=== PATIENT | female | born 1995 | race Caucasian/White ===

== ENCOUNTER 2017-08-10 12:09 | Emergency (ER) | payer MEDICAID, SELFPAY ==
[2017-08-10 12:09] VITALS: BP 139/64; PULSE 111; RESP 16; TEMP 36.9; BMI 19.8
--- NOTE | 2017-08-10 12:47 | ED.VISSUMM ---
- ER Visit Summary Date of Service: 08/10/17 Chief Complaint: Left flank pain History of Present Illness: The patient is a 22 F who presents with left flank pain. Patient does not offer up any information on her history without direct closed ended questions. I am not sure why that is. Attempted to ask open-ended questions met with resistance. From what I can elucidate out patient had a sudden onset of left flank pain beginning yesterday evening while she was doing nothing. Described as a throbbing pain. She denies any fevers, arthralgias myalgias, no rash, no urinary symptoms. Patient denies any vomiting or diarrhea or nausea. No cough shortness of breath. No chest pains. No trauma. She denies any medical problems. She denies any surgeries and later states she has had a tonsillectomy. She is a smoker. Physical Examination: Afebrile vital signs are stable Gen: Well-nourished well-developed Head: Normocephalic atraumatic Eyes: Perrl EOMI ENT: TMs clear no rhinorrhea moist mucous membranes Neck: Supple no lymphadenopathy no JVD nontender CVS: Regular rate rhythm no murmurs normal S1-S2 Respiratory: No distress clear to auscultation bilaterally chest nontender Abdomen: Soft nontender nondistended normal bowel sounds no masses Back: CVA tenderness on the left Extremity: Nontender no edema Skin: Normal color no rash Neuro: alert orientated ?3 CN II-XII intact normal strength sensation reflexes gait cerebellar Emergency Department Course and Treatment: Shortly after my H&P and nursing's evaluation I was starting to put orders in when the patient came out of her room and stated that she was leaving. She offered no explanation. Her mother comes out of the room and states well I guess we are leaving. At this point the patient has left. Impression: 1. Left flank pain 2. ED elopement This note was generated with [employer] dictation software. It may contain incorrect words, spelling, and punctuation that were not noted in review of the chart prior to signing ED Disposition - Plan for ED Patient: Chief Complaint: Flank Pain Referrals: Chavez Scott DO [Primary Care Provider] -
--- NOTE | 2017-08-10 12:51 | ED.DCSUM_ITS ---
- ER Visit Summary Date of Service: 08/10/17 Chief Complaint: Left flank pain History of Present Illness: The patient is a 22 F who presents with left flank pain. Patient does not offer up any information on her history without direct closed ended questions. I am not sure why that is. Attempted to ask open- ended questions met with resistance. From what I can elucidate out patient had a sudden onset of left flank pain beginning yesterday evening while she was doing nothing. Described as a throbbing pain. She denies any fevers, arthralgias myalgias, no rash, no urinary symptoms. Patient denies any vomiting or diarrhea or nausea. No cough shortness of breath. No chest pains. No trauma. She denies any medical problems. She denies any surgeries and later states she has had a tonsillectomy. She is a smoker. Physical Examination: Afebrile vital signs are stable Gen: Well-nourished well-developed Head: Normocephalic atraumatic Eyes: Perrl EOMI ENT: TMs clear no rhinorrhea moist mucous membranes Neck: Supple no lymphadenopathy no JVD nontender CVS: Regular rate rhythm no murmurs normal S1-S2 Respiratory: No distress clear to auscultation bilaterally chest nontender Abdomen: Soft nontender nondistended normal bowel sounds no masses Back: CVA tenderness on the left Extremity: Nontender no edema Skin: Normal color no rash Neuro: alert orientated ?3 CN II-XII intact normal strength sensation reflexes gait cerebellar Emergency Department Course and Treatment: Shortly after my H&P and nursing's evaluation I was starting to put orders in when the patient came out of her room and stated that she was leaving. She offered no explanation. Her mother comes out of the room and states well I guess we are leaving. At this point the patient has left. Impression: 1. Left flank pain 2. ED elopement This note was generated with [employer] dictation software. It may contain incorrect words, spelling, and punctuation that were not noted in review of the chart prior to signing ED Disposition - Plan for ED Patient: Chief Complaint: Flank Pain Referrals: Chavez Scott DO [Primary Care Provider] -
--- NOTE | 2017-08-10 13:08 | ED.RN ---
pt left with mother. no explanation from patient.
== END 2017-08-10 13:12 | disposition left against medical advice (07) ==
LOC: ED 12:45
PROVIDERS: Emergency Provider Emergency Medicine; Family Provider Preventive Medicine Occupational Medicine; PCP Preventive Medicine Occupational Medicine
DX: R10.9 Unspecified abdominal pain (principal); M54.9 Dorsalgia, unspecified; Z72.0 Tobacco use
CPT/HCPCS: 99283

== ENCOUNTER 2017-10-18 11:46 | Observation (INO) | payer MEDICAID, SELFPAY ==
[2017-10-18] VITALS (14 sets, daily range): BP systolic 85–131; BP diastolic 56–87; PULSE 106–147; RESP 14–18; TEMP 37.2–38.1; O2SAT 98–100; BMI 23.2
--- NOTE | 2017-10-18 12:00 | RAD_ITS ---
STUDY: X-RAY CHEST REASON FOR EXAM: Female, 22 years old. Chest pain TECHNIQUE: A single frontal view of the chest was obtained. COMPARISON: None. FINDINGS: The lungs are underaerated. There are minimal increased markings in both lung bases. There is no demonstrated pleural abnormality. The cardiac silhouette is normal in size. The mediastinum and hilar regions are unremarkable. Normal visualized pulmonary arteries. Normal visualized aortic arch and descending thoracic aorta. The thoracic spine is unremarkable. The visualized ribs, clavicles, and shoulders are unremarkable. There is no demonstrated abnormality of the visualized upper abdomen. RAD/Chest 1 View (Portable) IMPRESSION: No acute cardiopulmonary abnormalities. There is minimal bibasilar atelectasis. Electronically Signed: Eneida Zhang MD at 12:27 EDT Tel Direct: [phone], Service support ,
--- NOTE | 2017-10-18 12:00 | EKG12_ITS ---
Test Reason : CP Blood Pressure : / mmHG Vent. Rate : 136 BPM Atrial Rate : 136 BPM P-R Int : 136 ms QRS Dur : 062 ms QT Int : 362 ms P-R-T Axes : 059 061 073 degrees QTc Int : 544 ms Sinus tachycardia Otherwise normal ECG Confirmed by ELIANA TRAN, PB ([id number]), order editor DIMITRY PAGAN ([id number] on 10/23/2017 3:41:36 PM Referred By: MORGAN Confirmed By:PB MONROY MD
[2017-10-18] MEDS: LORazepam 2 MG/ML Syringe 1 MG IV (12:57)
[2017-10-18] MEDS: Acetaminophen 325 MG Tablet 650 MG PO (12:57)
[2017-10-18] MEDS: 0.9% Normal Saline 1,000 ML IV.SOLN. 2100 ML IV (12:58)
[2017-10-18 13:57] LABS: Absolute Lymphocyte Count 0.55 X10^3/ul (0.83-4.51); Absolute Neutrophil Count 2.8 X10^3/uL (2.0-7.7); Differential Indicated SCAN CRITERIA MET; Eosinophil# 0.02 X10^3/uL; Eosinophils% 0.6 % (0-5); Hematocrit 34.7 % (37-47); Hemoglobin 11.2 g/dl (12.0-15.0); Lymphocyte # 0.55 X10^3/ul (4.0); Mean Corp Hgb Conc 32.3 g/gl (32-36); Mean Corpuscular Hgb 27.1 pg (27.0-32.0); Mean Platelet Vol. 9.6 fl (6.2-12.0); Monocyte# 0.07 X10^3/uL; Neutrophil # 2.79 X10^3/uL (2.7-7.7); Neutrophil % 81.4 % (47-70); POSITIVE COUNT NO; POSITIVE DIFFERENTIAL YES; POSITIVE MORPHOLOGY NO; Platelet Count 64 K/mm3 (150-450); Red Blood Count 4.13 M/mm3 (4.2-5.4); White Blood Count 3.4 K/mm3 (4.4-11.0)
[2017-10-18 14:08] LABS: ALB/GLOB Ratio 0.9 RATIO (0.9-2.4); AST(SGOT) 70 U/L (15-37); Alanine Aminotransfer ALT/SGPT 120 U/L (13-56); Albumin, Serum 2.6 g/dL (3.2-5.0); Alkaline Phosphatase 326 U/L (45-117); Anion Gap 11 (5-15); BUN 7 mg/dL (7-18); BUN/Creat Ratio 8.4 RATIO (10-20); Calcium,Total 7.7 mg/dL (8.5-10.1); Chloride 106 mmol/L (98-107); Creatinine, Serum 0.84 mg/dL (0.55-1.02); EST Glomerular Filtration Rate 92 mL/min (>60); Est Glom Filt Rate - Afr Amer 111 mL/min (>60); Estimated Creatinine Clearance 107.77 ml/min; Glucose 98 mg/dL (74-106); Potassium 3.6 mmol/L (3.5-5.1); Pregnancy, Serum, hCG Quali. NEGATIVE Negative (0-9 Nonpreg); Protein, Total 5.6 g/dL (6.4-8.2); Sodium Level 139 mmol/L (136-145)
[2017-10-18 14:09] LABS: International Normalized Ratio 1.3; Prothrombin Time (Protime)PT. 16.4 SECONDS (11.7-14.9)
[2017-10-18 14:10] LABS: Partial Thromboplast Time 40.7 Seconds (24.1-36.2)
[2017-10-18 14:18] LABS: Platelet Estimate MKD DEC (ADEQ)
[2017-10-18 14:24] LABS: Lactic Acid 4.5 mmol/L (0.4-2.0)
--- NOTE | 2017-10-18 14:48 | HP.PCM_ITS ---
Problem List (1) Chest pain Status: Acute (2) Heroin abuse Status: Acute History of Present Illness Date of Admission: 10/18/17 Chief Complaint: chest pain The patient is a 22 year old F history of heroin abuse. She was admitted by the ED on 10/18/17 with a complaint of chest pain was started morning of admission. She described chest pain as burning retrosternal and nonradiating, with no aggravating or relieving factors. She has never had chest pain like this before she had no associated shortness of breath or diaphoresis. She did admit to associated fever and chills, palpitations, but denies shortness of breath. She had no abdominal pain, diarrhea vomiting. Review of systems is otherwise negative. She has been using her arm for about 6 months now and uses it IV. She admits to sharing needles and states the last time she did it was about a month ago. She uses about 0.5-1 g of heroin IV daily and also uses marijuana and Xanax as well as meth occasionally. She denies using any cocaine or alcohol. Is currently unemployed and lives with her mother. She denies anybody else around her using heroin and states that she tried detox once in [place] but it did not last. [] Past Medical History Allergies No Known Allergies Allergy (Verified 08/10/17 12:11) Home Medications: Ambulatory Orders Medication Instructions Recorded NK [NK] 08/10/17 Surgical History: no surgical history Psychiatric History: No pertinent psych hx [employer] History: No pertinent [employer] history Lives: With Family Smoking Status: Current every day smoker Alcohol: None Drugs: Heroin, Marijuana - *Family History Maternal History Items: Heart Disease, - - hypothyroidism Paternal History Items: Heart Disease Review of Systems Constitutional: Reports: Chills, Fever, Malaise, Weakness. Denies: Weight Change Eyes: Denies: Blurred vision HEENT: Denies: Head Aches, Sinus Congestion, Sinus Drainage Cardiovascular: Reports: Chest Pain, Palpitations. Denies: Chest Pressure, Chest Tightness, Edema, Orthopnea, Paroxysmal Noc. Dyspnea, Syncope Respiratory: Denies: Cough, Pleuritic Pain, Shortness of Breath, Shortness of breath at rest, Shortness of breath upon exertion, Sputum production, Wheezing Gastrointestinal: Reports: Constipation, Diarrhea. Denies: Abdominal Pain, Nausea, Vomiting Genitourinary: Denies: Dysuria Musculoskeletal: Denies: Back Pain, Foot Pain, Hand Pain, Joint Pain, Joint Tenderness Skin: Denies: Rash, Wounds Neurological: Denies: Numbness, Tingling, Focal weakness Psychiatric: Denies: Anxiety, Depression, Homicidal Ideations, Suicidal Ideations Hematologic/ Lymphatic: Denies: Easy Bruising, Easy Bleeding VTE Information - Inpt Only VTE Present on Admission: No VTE Mechan Device Prophylaxis: SCD's VTE Pharm Prophylaxis ordered?: No Patient Problems: Active and Suspected Problems Chest pain (Acute) Heroin abuse (Acute) - Physical Exam General: Alert, Oriented x3, Cooperative, - - Moderate distress HEENT: Atraumatic, PERRLA, EOMI, Normocephalic Oral: Moist Mucosa Neck: Supple, No JVD, Negative Carotid Bruits, No Nodes, No Nuchal Rigidity, Trachea Midline Lungs: Clear to auscultation, Normal air movement Cardiovascular: Normal S1, Normal S2, No murmurs, Tachycardic Abdomen: Bowel Sounds Present, Soft, Non-Distended, No Hepato-splenomegaly, - - moderate right upper quadrant tenderness, with mild guarding, but no rebound tenderness Extremities: Capillary Refill Less than 3 Seconds, - - Mild bilateral nonpitting pedal edema Skin: - - Multiple well-healed track dumont of her arms bilaterally Musculoskeletal: No Tenderness to Palpation of Joints or Extremities Lymphatic: No Cervical, Supraclavicular, or Inguinal Adenopathy Neurological: Cranial nerves II-XII grossly intact Psych/Mental Status: Anxious, Alert and oriented to time, place, person, mood and affect Vital Signs Temp Pulse Resp BP Pulse Ox 100.1 F H 132 H 14 118/70 99 10/18/17 12:21 10/18/17 14:32 10/18/17 14:32 10/18/17 14:32 10/18/17 14:32 Oxygen Delivery Method Room Air Weight: 152 lb 13.896 oz Body Mass Index (BMI) 23.2 Laboratory Tests Past 24 Hrs 10/18/17 10/18/17 10/18/17 13:40 13:40 13:40 WBC 3.4 L RBC 4.13 L Hgb 11.2 L Hct 34.7 L MCV 84.0 MCH 27.1 MCHC 32.3 RDW 14.0 RDW Differential 43.0 Plt Count 64 L MPV 9.6 Immature Gran % (Auto) 0.000 Neut % (Auto) 81.4 H Lymph % (Auto) 16.0 L Nance % (Auto) 2.0 Eos % (Auto) 0.6 Baso % (Auto) 0.0 Absolute Neuts (auto) 2.8 Absolute Lymphs (auto) 0.55 L Total Counted Not Reportable Platelet Estimate MKD DEC PT 16.4 H INR 1.3 APTT 40.7 H Sodium 139 Potassium 3.6 Chloride 106 Carbon Dioxide 22.0 Anion Gap 11 BUN 7 Creatinine 0.84 Estim Creat Clear Calc 107.77 Est GFR (MDRD) Af Amer 111 Est GFR (MDRD) Non-Af 92 BUN/Creatinine Ratio 8.4 L Glucose 98 Lactic Acid Calcium 7.7 L Total Bilirubin 1.70 H AST 70 H ALT 120 H Alkaline Phosphatase 326 H Troponin I < 0.015 Total Protein 5.6 L Albumin 2.6 L Globulin 3.0 Albumin/Globulin Ratio 0.9 Serum , Qual 10/18/17 10/18/17 13:40 13:40 WBC RBC Hgb Hct MCV MCH MCHC RDW RDW Differential Plt Count MPV Immature Gran % (Auto) Neut % (Auto) Lymph % (Auto) Nance % (Auto) Eos % (Auto) Baso % (Auto) Absolute Neuts (auto) Absolute Lymphs (auto) Total Counted Platelet Estimate PT INR APTT Sodium Potassium Chloride Carbon Dioxide Anion Gap BUN Creatinine Estim Creat Clear Calc Est GFR (MDRD) Af Amer Est GFR (MDRD) Non-Af BUN/Creatinine Ratio Glucose Lactic Acid 4.5 H* Calcium Total Bilirubin AST ALT Alkaline Phosphatase Troponin I Total Protein Albumin Globulin Albumin/Globulin Ratio Serum , Qual NEGATIVE Assessment/Plan All Active Problems Chest pain (Acute) Heroin abuse (Acute) 22-year-old female with a history of opiate benzodiazepine abuse presenting with a 1 day history of chest pain started on morning of admission. 1. Chest pain, will want to rule out ACS * Pain started this morning when she was shooting up heroin. Chest pain is retrosternal, burning in nature with no aggravating or relieving factors. * EKG showed only sinus tachycardia with no acute ST changes. * Initial troponin was negative. We will cycle. * Admit to PCU with telemetry. * Sublingual nitro as needed. Will give aspirin 81 mg daily. * I doubt that this chest pain is due to any cardiac cause in light of the age, and lack of risk factors, apart from heroin * 2. ?Acute hepatitis * History of IV drug use. Also has right upper quadrant tenderness with mild guarding but no rebound tenderness * Has no jaundice clinically, her liver enzymes showed total bilirubin of 1.7, with AST/ALT of 74/120 and ALP of 326. No baseline available in the system. * Lactic acid is also elevated at 4.5, even though blood pressure is normal. This likely due to her liver pathology. * Will check acute hepatitis panel as patient is at risk for hepatitis C in light of her IV drug use * Would prefer to get a right upper quadrant ultrasound but that is not available as at the holidays will get an urgent CT abdomen. * Will monitor liver enzymes and trend lactic acid. Also check serum acetaminophen level. * * 3. Sepsis * has SIRS 2/4 criteria- tachycardia, fever. Focus of infection could be the hepatitis * Symptoms less likely due to opiate withdrawal as patient last used opiates this morning. * Blood cultures taken in the ED. Started on IV vancomycin and IV Zosyn. Will continue. * Will hydrate with IV fluids normal saline 1 L bolus and continue with 1 50 cc/ h. * * 4.Lactic acidosis * likely due to liver pathology; less likely from hypoperfusion as patient has not been hypotensive * will hydrate and trend lactic acid * 5. heroin and benzodiazepine abuse * last use was this morning;uses ~ 1 gram daily * will put on heroin withdrawal protocol * 6. Pancytopenia * platelets-64, wbc-3.4, hb is 11.2 no baseline available * likely due to liver pathology (hepatitis) * Spoke to lab; slide checked and no evidence of pseudothrombocytopenia. * denies any recent new drug use * will monitor * 7. DVT prophylaxis: SCDs This note was generated with [employer] dictation software. It may contain incorrect words, spelling, and punctuation that were not noted in checking the note before signing. Code Visit Inpatient E&M: 15909 Init Hosp L3
[2017-10-18] MEDS: Piperacil/Tazobactam 3.375 GM/50 ML ML IV ×2 (14:59→23:19)
--- NOTE | 2017-10-18 15:27 | ED.DCSUM_ITS ---
- ER Visit Summary Date of Service: 10/18/17 Chief Complaint: Chest pain History of Present Illness: The patient is a 22 F presenting for evaluation secondary chest pain. Patient states that she had a sudden onset of chest pain about an hour ago after she injected heroin in her arm. Patient reports that this is a continuous severe burning pain. She states that associated with shortness of breath. Patient reports that potentially her heroin may have been laced with methamphetamine but she is not sure. She denies that she has had any prior similar symptoms or episodes in the past she is not on any sort of medications review of systems otherwise negative. Physical Examination: Vital signs notable for temperature of 100.2 and a heart rate of 136. Well-nourished female no acute distress. Moist mucous membranes. No JVD. Heart tachycardic and regular no murmurs. Lungs sounds clear to auscultation bilaterally. Abdomen soft nontender nondistended normal bowel sounds. Track dumont noted on patient's arm but no obvious skin infections no evidence of splinter hemorrhages Osler nodes or Janeway lesions. Skin is otherwise normal color. Patient is alert and oriented. Test Results: EKG shows sinus tachycardia with a rate of [address] segments normal T waves. CBC shows leukopenia with a neutrophilic predominance , chemistry unremarkable troponin negative lactic acid 4.5 chest x-ray unremarkable. Emergency Department Course and Treatment: Patient presented for evaluation secondary to chest pain in the setting of recent IV injection drugs. Sepsis was suspicious, so IV was established blood work including cultures were obtained. Patient was given Tylenol and a 30 cc/kg fluid bolus. Workup showed a lactic acid of 4.5 but no obvious nidus of infection although I am suspicious of the patient having bacteremia due to her recent injection. Patient will be placed on broad-spectrum antibiotics and admitted to the PCU. Disposition: Admission Impression: 1. Severe sepsis 2. IV drug abuse Critical care time 35 minutes This note was generated with [employer] dictation software. It may contain incorrect words, spelling, and punctuation that were not noted in review of the chart prior to signing ED Disposition - Plan for ED Patient: Chief Complaint: Chest Other
--- NOTE | 2017-10-18 15:45 | EKG12_ITS ---
Test Reason : ADMIT EKG, CP IN ED Blood Pressure : / mmHG Vent. Rate : 120 BPM Atrial Rate : 120 BPM P-R Int : 152 ms QRS Dur : 074 ms QT Int : 304 ms P-R-T Axes : 070 069 076 degrees QTc Int : 429 ms Sinus tachycardia Otherwise normal ECG No previous ECGs available Confirmed by ELIANA TRAN, PB ([id number]), photographic editor DIMITRY PAGAN ([id number]) on 10/24/2017 1:13:10 PM Referred By: KRISHAN Confirmed By:PB MONROY MD
[2017-10-18] MEDS: 0.9% Normal Saline 1,000 ML 999 ML IV (16:27)
[2017-10-18] MEDS: Buprenorphine HCl 2 MG TAB.SUBL 4 MG SL (16:49)
[2017-10-18 17:26] LABS: Acetaminophen (Tylenol) Level 7.9 ug/mL (10.0-30.0)
--- NOTE | 2017-10-18 17:44 | PCM.RX.CS ---
Consult Pharmacy has been consulted to manage selected antiobiotic: Vancomycin Type of Consult: New start Suspected Infection: Sepsis Prior Doses of Antibiotics Received/Current Regimen: VANCOMYCIN 1000MG IV X1 IN ED 10/18 @1503 Labs: Sodium 139 mmol/L (136-145) 10/18/17 13:40 Potassium 3.6 mmol/L (3.5-5.1) 10/18/17 13:40 Chloride 106 mmol/L (98-107) 10/18/17 13:40 Carbon Dioxide 22.0 mmol/L (21.0-32.0) 10/18/17 13:40 Anion Gap 11 (5-15) 10/18/17 13:40 BUN 7 mg/dL (7-18) 10/18/17 13:40 Creatinine 0.84 mg/dL (0.55-1.02) 10/18/17 13:40 Est GFR (MDRD) Af Amer 111 mL/min (>60) 10/18/17 13:40 Est GFR (MDRD) Non-Af 92 mL/min (>60) 10/18/17 13:40 BUN/Creatinine Ratio 8.4 RATIO (10-20) L 10/18/17 13:40 Glucose 98 mg/dL (74-106) 10/18/17 13:40 Weight used for dosin.3 kg Estimated Creatinine Clearance: 107ML/MIN Goal Trough: 15-20 mcg/mL Pharmacy Plan for Drug Dosing: PLAN/RECOMMENDATIONS 1. Vancomycin 750mg IV Q8hr to start 10/18/17 @2300 2. Trough scheduled 10/19/17 @1430 (Prior to 4th total vanco dose) 3. Pharmacy Service will continue to monitor and adjust dosing as required.
[2017-10-18 17:46] LABS: Reflex Lactate? Y
[2017-10-18] MEDS: Methocarbamol 750 MG Tablet PO (18:36)
[2017-10-18] MEDS: 0.9% Normal Saline 1,000 ML 150 ML IV (18:36)
[2017-10-18] MEDS: chlordiazePOXIDE 25 MG Capsule PO (18:36)
[2017-10-18 19:09] LABS: Lactic Acid 3.9 mmol/L (0.4-2.0)
--- NOTE | 2017-10-18 20:04 | PCM.PN.BLA ---
Progress Note Night hospitalist: Called by nursing for decreased BP and persistent elevation in lactic acid. I reviewed all events since admission and all lab and medications. This is a 22 YO female with a PMH of poly substance abuse including Xanax, IV heroin, Meth and marijuana. She presented to the Ed at [facility] on 10/18/17 c/o substernal CP. Fevers, chills and RUQ abdominal pain. She admits to sharing needles. Hepatitis panel has been ordered. She is on Vancomycin and Zosyn. Lab shows pancytopenia and elevated LFT's with a mildly increased PT. RUQ US ordered but apparently can not be done until tomorrow. Pt is crying and c/o RUQ pain. she denies a hx of Cholelithiasis but, does get Reflux with fatty foods. she complains of nausea but, has not had any emesis. Heart - tachycardia with no MM Lungs - CTA Abdomen - tender to palpation in the RUQ.....she grimaces but does not guard. Palpation of the other abdominal quadrants is NT. the abdomen is not distended and BS's are hypoactive. No rash and no peripheral edema Impressions 1. RUQ pain with fever, tachycardia, lymphopenia, lactic acidosis and abnormal LFT's (mixed hepatocellular and obstructive). Concerned about a liver abscess vs cholecystitis. 2. IV heroin use 1 GM daily and sometimes more 3. pancytopenia 4. tobacco dependence continue Vanco and Zosyn Hepatitis panel pending Check an HIV ( NR) DC the suboxone for now and start Dilaudid for pain relief.......after the sourced of the fever and lactic acidosis is found then can consider [facility] CT scan of the abdomen with IV contrast and no oral contrast Recheck the lab in the AM
--- NOTE | 2017-10-18 20:59 | CT_ITS ---
STUDY: CT ABDOMEN AND PELVIS WITH CONTRAST REASON FOR EXAM: Female, 22 years old. Right upper quadrant pain, fever and chills with elevated lactic acid, hypotensive is in sepsis. RADIATION DOSAGE (If Supplied By Facility): CTDIvol = ( 14.84 ) mGy, DLP = ( 731.29 ) mGycm TECHNIQUE: Transaxial images were obtained from the dome of the diaphragm to the symphysis pubis without oral contrast. 75mL ml of Isovue 300 contrast was administered. Sagittal and coronal images were reconstructed. Individualized dose optimization techniques were used for this CT. COMPARISON: [address] abdomen and pelvis FINDINGS: The visualized lung bases are unremarkable. The visualized portions of the heart are within normal limits. Normal appearance of the liver parenchyma with surrounding mild perihepatic fluid is noted. There is pericholecystic fluid surrounding the gallbladder. There is demonstrated. Pleural halo showing decreased attenuation which can be seen to represent fluid or dilated lymphatic tissue around the portal triad. The common bile duct remains within normal appearance. Normal spleen. Normal pancreas. Normal bilateral adrenal glands. Normal right kidney. Normal left kidney. Normal visualized stomach. Normal small intestine. Normal colon. The appendix is visualized and appears normal. Normal abdominal aorta. Normal inferior vena cava. Normal retroperitoneum. Normal urinary bladder. Normal abdominal wall. Normal osseous structures. CT/Abdomen/Pelvis W IV Cont ONLY IMPRESSION: 1.. Cholecystic fluid surrounding the gallbladder with no definitive wall thickening and underlying cholecystitis not excluded. No evidence of common bile duct dilatation. Recommend right upper quadrant ultrasound for further characterization. 2. There is diffuse areas of periportal lucency which is a nonspecific finding and can be seen in the setting of aggressive fluid resuscitation, congestive failure, hepatitis, and nataliia hepatis mass obstructing lymphatic drainage. There is mild prominence near the nataliia hepatis. Recommend clinical correlation with probable follow-up imaging with MRI liver as clinically warranted. Electronically Signed: Saad Blackwood DO at 21:55 EDT , Service support ,
[2017-10-18] MEDS: HYDROmorphone 1 MG/ML Syringe IV (21:30)
[2017-10-18 21:50] LABS: HIV - WCH Non-Reactive (Nonreactive)
[2017-10-19] VITALS (8 sets, daily range): BP systolic 92–121; BP diastolic 46–68; PULSE 87–100; RESP 14–16; TEMP 36.8–37.4; O2SAT 100
[2017-10-19] MEDS: HYDROmorphone 1 MG/ML Syringe IV ×5 (00:41→17:34)
[2017-10-19] MEDS: 0.9% Normal Saline 1,000 ML 150 ML IV ×3 (00:44→14:33)
[2017-10-19] MEDS: 0.9% NaCl Peripheral Flush Adult/Peds IV (05:52)
[2017-10-19] MEDS: Piperacil/Tazobactam 3.375 GM/50 ML ML IV ×2 (05:53→14:38)
[2017-10-19 06:30] LABS: Hematocrit 32.4 % (37-47); Hemoglobin 10.5 g/dl (12.0-15.0); Mean Corp Hgb Conc 32.4 g/gl (32-36); Mean Corpuscular Hgb 27.1 pg (27.0-32.0); Mean Corpuscular Volume 83.5 fL (81-99); Mean Platelet Vol. 10.7 fl (6.2-12.0); Platelet Count 57 K/mm3 (150-450); RBC Distribution Width CV 14.6 % (11.6-14.6); RBC Distribution Width SD 44.3 fl (35.1-43.9); Red Blood Count 3.88 M/mm3 (4.2-5.4); White Blood Count 12.1 K/mm3 (4.4-11.0)
[2017-10-19 06:32] LABS: Scan Indicated on CBC? Y/N NO
[2017-10-19 06:35] LABS: International Normalized Ratio 1.3; Prothrombin Time (Protime)PT. 16.6 SECONDS (11.7-14.9)
[2017-10-19] MEDS: chlordiazePOXIDE 25 MG Capsule PO ×2 (07:00→14:33)
[2017-10-19 07:06] LABS: AST(SGOT) 69 U/L (15-37); Alanine Aminotransfer ALT/SGPT 104 U/L (13-56); Albumin, Serum 2.4 g/dL (3.2-5.0); Alkaline Phosphatase 219 U/L (45-117); Bilirubin, Direct 1.29 mg/dL (0.00-0.30); Globulin 2.5 g/dL (2.2-4.2); Protein, Total 4.9 g/dL (6.4-8.2)
[2017-10-19 08:24] LABS: Anion Gap 6 (5-15); BUN 9 mg/dL (7-18); BUN/Creat Ratio 13.8 RATIO (10-20); Calcium,Total 7.1 mg/dL (8.5-10.1); Chloride 113 mmol/L (98-107); Creatinine, Serum 0.65 mg/dL (0.55-1.02); EST Glomerular Filtration Rate 123 mL/min (>60); Est Glom Filt Rate - Afr Amer 148 mL/min (>60); Estimated Creatinine Clearance 139.27 ml/min; Glucose 111 mg/dL (74-106); Potassium 3.9 mmol/L (3.5-5.1); Sodium Level 141 mmol/L (136-145)
[2017-10-19 08:27] LABS: Lactic Acid 1.2 mmol/L (0.4-2.0)
--- NOTE | 2017-10-19 13:16 | PCM.PN.HOSP ---
Patient Problems: Active and Suspected Problems Chest pain (Acute) Heroin abuse (Acute) Subjective: Patient is a 23-year-old female with a history of heroin abuse was admitted with a complaint of chest pain was started on morning of admission and was described as burning, retrosternal nonradiating with no aggravating or relieving factors. She was noted to also have right upper quadrant pain. Labs showed elevated liver enzymes with elevated bilirubin, AST and ALT. She was admitted and was being managed for possible acute hepatitis and sepsis. She was started on IV vancomycin and Zosyn. Patient seen and examined. Overnight pain worsened, CT abdomen and pelvis was done which showed normal liver parenchyma with surrounding mild perihepatic fluid and pericholecystic fluid surrounding the gallbladder. Common bile duct was normal with normal spleen and pancreas and adrenal glands. Started on IV Dilaudid for pain. She still complaining of pain and tremors and diarrhea. Patient was crying in bed was eating breakfast because she was comfortable. Father was at the bedside and requested that we pass a PICC line because patient had been stuck so many times in a bit to get blood. I informed father that PICC line will be necessary if patient was going to be in the hospital long-term but also I was a bit uncomfortable with considering a PICC line in light of patient's IV drug use. Vitals/I&O's: Vital Signs Temp Pulse Resp BP Pulse Ox 98.2 F 98 14 96/46 L 100 10/19/17 09:56 10/19/17 11:13 10/19/17 09:56 10/19/17 09:56 10/19/17 09:56 Oxygen Delivery Method Room Air Weight: 152 lb 12.485 oz Body Mass Index (BMI) 23.2 Intake and Output for Last 24 Hours 10/17/17 10/18/17 10/19/17 23:59 23:59 23:59 Intake Total 340 / 340 4521 / 4521 Balance 340 / 340 4521 / 4521 General: Alert, Oriented x3, Cooperative, - - Moderate distress HEENT: Atraumatic, PERRLA, EOMI, Normocephalic Oral: Moist Mucosa Neck: Supple, No JVD, Negative Carotid Bruits Lungs: Clear to auscultation, Normal air movement, No rhonchi, No wheeze, No rales Cardiovascular: Regular rate, Regular Rhythm, Normal S1, Normal S2, No murmurs Abdomen: Bowel Sounds Present, Soft, Non-Distended, No Hepato-splenomegaly, - - Has moderate right upper quadrant tenderness with no guarding or rebound tenderness. Yates sign is negative. Extremities: No clubbing, No cyanosis, No edema, Capillary Refill Less than 3 Seconds, - - Multiple track dumont over upper extremities. Skin: - - multiple track dumont Musculoskeletal: No Tenderness to Palpation of Joints or Extremities Lymphatic: No Cervical, Supraclavicular, or Inguinal Adenopathy Neurological: Cranial nerves II-XII grossly intact Psych/Mental Status: Agitated, Anxious, Alert and oriented to time, place, person, mood and affect Laboratory Results 10/18/17 16:00: HCV RNA Quant (PCR) Pending 10/18/17 16:18: Troponin I < 0.015 10/18/17 16:18: Acetaminophen 7.9 L 10/18/17 16:18: Hepatitis A IgM Ab Pending, Hep Bs Antigen Pending, Hep B Core IgM Ab Pending, Hepatitis C Ab (EIA) Pending 10/18/17 16:18: HIV 1&2 Antibody Non-Reactive 10/18/17 18:15: Lactic Acid 3.9 H 10/19/17 06:10: WBC 12.1 H, RBC 3.88 L, Hgb 10.5 L, Hct 32.4 L, MCV 83.5, MCH 27.1, MCHC 32.4, RDW 14.6, RDW Differential 44.3 H, Plt Count 57 L, MPV 10.7 10/19/17 06:10: PT 16.6 H, INR 1.3 10/19/17 06:10: Total Bilirubin 1.90 H, Direct Bilirubin 1.29 H, AST 69 H, ALT 104 H, Alkaline Phosphatase 219 H, Total Protein 4.9 L, Albumin 2.4 L, Globulin 2.5 10/19/17 07:48: Sodium 141, Potassium 3.9, Chloride 113 H, Carbon Dioxide 22.0, Anion Gap 6, BUN 9, Creatinine 0.65, Estim Creat Clear Calc 139.27, Est GFR (MDRD) Af Amer 148, Est GFR (MDRD) Non-Af 123, BUN/Creatinine Ratio 13.8, Glucose 111 H, Calcium 7.1 L 10/19/17 07:48: Lactic Acid 1.2 Diagnostic Data Chest X-Ray 10/18/17 12:00 IMPRESSION: No acute cardiopulmonary abnormalities. There is minimal bibasilar atelectasis. Electronically Signed: Eneida Zhang MD at 12:27 EDT Tel Direct: [phone], Service support , Abdomen/Pelvis CT 10/18/17 20:59 IMPRESSION: 1.. Cholecystic fluid surrounding the gallbladder with no definitive wall thickening and underlying cholecystitis not excluded. No evidence of common bile duct dilatation. Recommend right upper quadrant ultrasound for further characterization. 2. There is diffuse areas of periportal lucency which is a nonspecific finding and can be seen in the setting of aggressive fluid resuscitation, congestive failure, hepatitis, and nataliia hepatis mass obstructing lymphatic drainage. There is mild prominence near the nataliia hepatis. Recommend clinical correlation with probable follow-up imaging with MRI liver as clinically warranted. Electronically Signed: Saad Blackwood DO at 21:55 EDT , Service support , Current Medications Chlordiazepoxide (Librium) 25 mg PO Q6H PRN PRN PRN Reason: Moderate-Severe Anxiety Last Admin: 10/19/17 07:00 Dose: 25 mg Dicyclomine HCl (Bentyl) 20 mg PO Q6H PRN PRN PRN Reason: Abdomnial Discomfort Hydromorphone HCl (Dilaudid Inj) 1 mg IV Q3H PRN PRN PRN Reason: SEVERE PAIN (6-10/10) Last Admin: 10/19/17 10:22 Dose: 1 mg Piperacillin Sod/Tazobactam Sod (Zosyn) 3.375 gm in 50 mls @ 12.5 mls/hr IV Q8 [facility] Last Admin: 10/19/17 05:53 Dose: 12.5 mls/hr Vancomycin IV Pharmacy to Dose (1 ea/ Sodium Chloride) 500 mls @ 250 mls/hr IV PRN PRN PRN Reason: Protocol Sodium Chloride () 1,000 mls @ 150 mls/hr IV .Q6H40M [facility] Last Admin: 10/19/17 07:38 Dose: 150 mls/hr Vancomycin HCl 750 mg/ Sodium (Chloride) 265 mls @ 265 mls/hr IV Q8H [facility] Magnesium Hydroxide (Milk Of Magnesia) 30 ml PO DAILY PRN PRN PRN Reason: Constipation Nicotine (Nicoderm Cq (Pbkc)) 21 mg TRANSDERM. DAILY [facility] Last Admin: 10/19/17 10:31 Dose: 21 mg Pramipexole Dihydrochloride (Mirapex) 0.25 mg PO Q12H PRN PRN PRN Reason: Restless Legs Sodium Chloride () 5 - 30 ml IV UD PRN PRN Reason: SALINE FLUSH Last Admin: 10/19/17 05:52 Dose: 30 ml Medical Necessity - Tobacco Use Smoking Status: Current every day smoker Tobacco Use: Secondhand, Cigarettes Assessment/Plan All Active Problems Chest pain (Acute) Heroin abuse (Acute) 22-year-old female with a history of opiate benzodiazepine abuse presenting with a 1 day history of chest pain started on morning of admission. 1. Chest pain, ACS ruled out. chest pain has resolved. troponins x 2 were negative. SL nitroglycerin prn. EKG showed no acute ST changes 2. Sepsis due to acute hepatitis vs acute cholecystitis fever has resolved. Still has SIRS 2/4 (tachycardia and wbc) lactic acid was 4.5 on admission, now down to 1.9 blood cultures pending hepatitis panel pending on IV vancomycin and IV zosyn liver ultrasound still pending CT abdomen showed perihepatic fluid and cholecystic fluid around gallbladder with no definitive wall thickening. liver enzymes trended down slightly; will continue to trend and monitor 3. Lactic acidosis: resolved with IVF administration 4. heroin and benzodiazepine abuse last use was morning of admission;uses ~ 1 gram daily on heroin withdrawal protocol 5. Pancytopenia platelets have fallen further to 57, wbc up to 12.1 and Hb is 10.5 no pseudothrombocytopenia; no schistocytes per peripheral smear also thrombocytopenia is possibly hepatic induced if it trends down further, will get hematology consult 6. DVT prophylaxis: SCDs GI prophylaxis: famotidine This note was generated with goActation software. It may contain incorrect words, spelling, and punctuation that were not noted in checking the note before signing. Code Visit Inpatient E&M: 29165 [facility] Hosp L3
--- NOTE | 2017-10-19 13:29 | PN_ITS ---
Patient Problems: Active and Suspected Problems Chest pain (Acute) Heroin abuse (Acute) Subjective: Patient is a 23-year-old female with a history of heroin abuse was admitted with a complaint of chest pain was started on morning of admission and was described as burning, retrosternal nonradiating with no aggravating or relieving factors. She was noted to also have right upper quadrant pain. Labs showed elevated liver enzymes with elevated bilirubin, AST and ALT. She was admitted and was being managed for possible acute hepatitis and sepsis. She was started on IV vancomycin and Zosyn. Patient seen and examined. Overnight pain worsened, CT abdomen and pelvis was done which showed normal liver parenchyma with surrounding mild perihepatic fluid and pericholecystic fluid surrounding the gallbladder. Common bile duct was normal with normal spleen and pancreas and adrenal glands. Started on IV Dilaudid for pain. She still complaining of pain and tremors and diarrhea. Patient was crying in bed was eating breakfast because she was comfortable. Father was at the bedside and requested that we pass a PICC line because patient had been stuck so many times in a bit to get blood. I informed father that PICC line will be necessary if patient was going to be in the hospital long -term but also I was a bit uncomfortable with considering a PICC line in light of patient's IV drug use. Vitals/I&O's: Vital Signs Temp Pulse Resp BP Pulse Ox 98.2 F 98 14 96/46 L 100 10/19/17 09:56 10/19/17 11:13 10/19/17 09:56 10/19/17 09:56 10/19/17 09:56 Oxygen Delivery Method Room Air Weight: 152 lb 12.485 oz Body Mass Index (BMI) 23.2 Intake and Output for Last 24 Hours 10/17/17 10/18/17 10/19/17 23:59 23:59 23:59 Intake Total 340 / 340 4521 / 4521 Balance 340 / 340 4521 / 4521 General: Alert, Oriented x3, Cooperative, - - Moderate distress HEENT: Atraumatic, PERRLA, EOMI, Normocephalic Oral: Moist Mucosa Neck: Supple, No JVD, Negative Carotid Bruits Lungs: Clear to auscultation, Normal air movement, No rhonchi, No wheeze, No rales Cardiovascular: Regular rate, Regular Rhythm, Normal S1, Normal S2, No murmurs Abdomen: Bowel Sounds Present, Soft, Non-Distended, No Hepato-splenomegaly, - - Has moderate right upper quadrant tenderness with no guarding or rebound tenderness. Yates sign is negative. Extremities: No clubbing, No cyanosis, No edema, Capillary Refill Less than 3 Seconds, - - Multiple track dumont over upper extremities. Skin: - - multiple track dumont Musculoskeletal: No Tenderness to Palpation of Joints or Extremities Lymphatic: No Cervical, Supraclavicular, or Inguinal Adenopathy Neurological: Cranial nerves II-XII grossly intact Psych/Mental Status: Agitated, Anxious, Alert and oriented to time, place, person, mood and affect Laboratory Results 10/18/17 16:00: HCV RNA Quant (PCR) Pending 10/18/17 16:18: Troponin I < 0.015 10/18/17 16:18: Acetaminophen 7.9 L 10/18/17 16:18: Hepatitis A IgM Ab Pending, Hep Bs Antigen Pending, Hep B Core IgM Ab Pending, Hepatitis C Ab (EIA) Pending 10/18/17 16:18: HIV 1&2 Antibody Non-Reactive 10/18/17 18:15: Lactic Acid 3.9 H 10/19/17 06:10: WBC 12.1 H, RBC 3.88 L, Hgb 10.5 L, Hct 32.4 L, MCV 83.5, MCH 27.1, MCHC 32.4, RDW 14.6, RDW Differential 44.3 H, Plt Count 57 L, MPV 10.7 10/19/17 06:10: PT 16.6 H, INR 1.3 10/19/17 06:10: Total Bilirubin 1.90 H, Direct Bilirubin 1.29 H, AST 69 H, ALT 104 H, Alkaline Phosphatase 219 H, Total Protein 4.9 L, Albumin 2.4 L, Globulin 2.5 10/19/17 07:48: Sodium 141, Potassium 3.9, Chloride 113 H, Carbon Dioxide 22.0, Anion Gap 6, BUN 9, Creatinine 0.65, Estim Creat Clear Calc 139.27, Est GFR ( MDRD) Af Amer 148, Est GFR (MDRD) Non-Af 123, BUN/Creatinine Ratio 13.8, Glucose 111 H, Calcium 7.1 L 10/19/17 07:48: Lactic Acid 1.2 Diagnostic Data Chest X-Ray 10/18/17 12:00 IMPRESSION: No acute cardiopulmonary abnormalities. There is minimal bibasilar atelectasis. Electronically Signed: Eneida Zhang MD at 12:27 EDT Tel Direct: [phone], Service support , Abdomen/Pelvis CT 10/18/17 20:59 IMPRESSION: 1.. Cholecystic fluid surrounding the gallbladder with no definitive wall thickening and underlying cholecystitis not excluded. No evidence of common bile duct dilatation. Recommend right upper quadrant ultrasound for further characterization. 2. There is diffuse areas of periportal lucency which is a nonspecific finding and can be seen in the setting of aggressive fluid resuscitation, congestive failure, hepatitis, and nataliia hepatis mass obstructing lymphatic drainage. There is mild prominence near the nataliia hepatis. Recommend clinical correlation with probable follow-up imaging with MRI liver as clinically warranted. Electronically Signed: Saad Blackwood DO at 21:55 EDT , Service support , Current Medications Chlordiazepoxide (Librium) 25 mg PO Q6H PRN PRN PRN Reason: Moderate-Severe Anxiety Last Admin: 10/19/17 07:00 Dose: 25 mg Dicyclomine HCl (Bentyl) 20 mg PO Q6H PRN PRN PRN Reason: Abdomnial Discomfort Hydromorphone HCl (Dilaudid Inj) 1 mg IV Q3H PRN PRN PRN Reason: SEVERE PAIN (6-10/10) Last Admin: 10/19/17 10:22 Dose: 1 mg Piperacillin Sod/Tazobactam Sod (Zosyn) 3.375 gm in 50 mls @ 12.5 mls/hr IV Q8 [facility] Last Admin: 10/19/17 05:53 Dose: 12.5 mls/hr Vancomycin IV Pharmacy to Dose (1 ea/ Sodium Chloride) 500 mls @ 250 mls/hr IV PRN PRN PRN Reason: Protocol Sodium Chloride () 1,000 mls @ 150 mls/hr IV .Q6H40M [facility] Last Admin: 10/19/17 07:38 Dose: 150 mls/hr Vancomycin HCl 750 mg/ Sodium (Chloride) 265 mls @ 265 mls/hr IV Q8H [facility] Magnesium Hydroxide (Milk Of Magnesia) 30 ml PO DAILY PRN PRN PRN Reason: Constipation Nicotine (Nicoderm Cq (Pbkc)) 21 mg TRANSDERM. DAILY [facility] Last Admin: 10/19/17 10:31 Dose: 21 mg Pramipexole Dihydrochloride (Mirapex) 0.25 mg PO Q12H PRN PRN PRN Reason: Restless Legs Sodium Chloride () 5 - 30 ml IV UD PRN PRN Reason: SALINE FLUSH Last Admin: 10/19/17 05:52 Dose: 30 ml Medical Necessity - Tobacco Use Smoking Status: Current every day smoker Tobacco Use: Secondhand, Cigarettes Assessment/Plan All Active Problems Chest pain (Acute) Heroin abuse (Acute) 22-year-old female with a history of opiate benzodiazepine abuse presenting with a 1 day history of chest pain started on morning of admission. 1. Chest pain, ACS ruled out. * chest pain has resolved. * troponins x 2 were negative. * SL nitroglycerin prn. * EKG showed no acute ST changes * 2. Sepsis due to acute hepatitis vs acute cholecystitis * fever has resolved. Still has SIRS 2/4 (tachycardia and wbc) * lactic acid was 4.5 on admission, now down to 1.9 * blood cultures pending * hepatitis panel pending * on IV vancomycin and IV zosyn * liver ultrasound still pending * CT abdomen showed perihepatic fluid and cholecystic fluid around gallbladder with no definitive wall thickening. * liver enzymes trended down slightly; will continue to trend and monitor * 3. Lactic acidosis: resolved with IVF administration 4. heroin and benzodiazepine abuse * last use was morning of admission;uses ~ 1 gram daily * on heroin withdrawal protocol * 5. Pancytopenia * platelets have fallen further to 57, wbc up to 12.1 and Hb is 10.5 * no pseudothrombocytopenia; no schistocytes per peripheral smear also * thrombocytopenia is possibly hepatic induced * if it trends down further, will get hematology consult * 6. DVT prophylaxis: SCDs GI prophylaxis: famotidine This note was generated with Sybariation software. It may contain incorrect words, spelling, and punctuation that were not noted in checking the note before signing. Code Visit Inpatient E&M: 36836 [facility] Hosp L3
--- NOTE | 2017-10-19 15:58 | US_ITS ---
STUDY: ABDOMINAL ULTRASOUND - RIGHT UPPER QUADRANT REASON FOR VISIT: Female, 22 years old. Abnormal gallbladder on CT TECHNIQUE: Transverse and longitudinal imaging of the right upper quadrant was performed using real-time ultrasound. COMPARISON: CT abdomen and pelvis dated October 18, 2017 FINDINGS: Liver: The liver measures up to 22 cm. There is slight increased and heterogeneous echogenicity of the liver. The direction of portal flow is hepatopetal. There is no demonstrated mass in the liver. Gallbladder: The gallbladder is normal in size. The gallbladder wall measures up to 10 mm. There is a negative sonographic Yates's sign. There is pericholecystic fluid. There are no abnormalities in the lumen of the gallbladder. Common Bile Duct (C.B.D.): The common bile duct measures 4.6 mm. Pancreas: The visualized pancreas is within normal limits. There is no demonstrated mass in the pancreas. Right Kidney: The right kidney measures 12.1 cm. The right cortex measures 1.6 cm. There is no demonstrated mass in the right kidney. There is no dilatation of the collecting system. There is minimal free fluid in the right upper quadrant. US/Liver IMPRESSION: There is gallbladder wall thickening and pericholecystic fluid. No gallstones are seen. The findings can be seen with acalculous cholecystitis. There is no biliary ductal dilatation. The liver is enlarged with slight increased echogenicity which can be seen with fatty infiltration. There is minimal ascites in the right upper quadrant. Electronically Signed: Eneida Zhang MD at 19:36 EDT Tel Direct: [phone], Service support ,
[2017-10-19] MEDS: Pramipexole Di-HCl 0.25 MG Tablet PO (16:25)
--- NOTE | 2017-10-19 17:12 | CASEMGMT ---
Social Work: Referral date: 10/19/17 Date of assessment: 10/19/17 Reason for consult: drug use Informant: Dr. Gomez Personal Status: Mentation: alert and oreinted x3 Present during assessment: Patient alone Living arrangements: Patient lives with parents Education: High School graduate, graduated in 2016 Employment: Patient worked at [employer] up until 1 year ago Family dynamics/Relationships: Per patient, parents are supportive Supports: just my parents ADL's: Patient independent with ADL'S and IADL's Medical Hx and current status: Patient presented to [facility] ED with chest pain. Patient currently being treated for sepsis and questionable acute hepatitis. Substance Abuse History and current pattern of use: Alcohol: not much Tobacco: 1-2 ppd Marijuana: not too much anymore Heroin: daily Methamphetamine: denies current use Cocaine: denies current use Prescription drugs: denies Treatment: Patient states she went to detox somewhere in [place] a few years ago. Patient states she started using again the day she was discharged from [facility]. Patient also states that she has been to [facility] to be assessed for [facility] but tested positive so she did not qualify. Mental Health history and current status: Diagnoses: per patient, depression Stressors: current drug use, court date in November for bunch of felonies SI or HI: denied Treatment: Patient states she went to [facility] a few years ago but she only went a few times. Resources: JFS: [facility] Community Plan (Medicaid) Patient tearful through out assessment stating I am going through withdraw and I am miserable. Patient does not appear to have good insight into her medical issues at this time as evidenced by saying they just keep giving me antibiotics but don't say why. Patient angry at times during assessment stating that no one was doing anything for her to help her through withdraw. Patient states that she has been using drugs of all types since the age of 14. Patient having difficulty focusing during assessment and continued to perseverate on the fact that she was given food and now they have to my her ultrasound. SW spent much time attempting to re direct patient back to conversation. When asked if patient was interested in detox patient replied yes...I want to get off drugs. When asked what patient's goals were patient states I want to get a job and get my life back. This SW explained that patient would have to be medically cleared before referrals can be made to detox programs. Patient appeared to understand this. Spent time with patient providing active listening and supportive counseling. Will continue to follow to assist as needed with referral assistance. PLAN: Patient to referred for detox once medically stable. EDER Brooks
--- NOTE | 2017-10-19 21:22 | NURSING ---
RN entered pts room and pt immediately became defensive and upset with RN and the way the staff has treated her. She feels there is no reason for her to be here as all of her tests have been negative and she feels better. She immediately requested to leave AMA. This RN attempted to talk to her about staying and the importance of her being treated here in the hospital. Pt wanted nothing to do with staying, she did not want to listen to what I had to say. He mother was at the bedside trying to convince her to stay as well. This RN obtained signed AMA papers, removed Tele and pts IV. She walked out on her own will/ability alongside her mother. He mother will be taking her home.
[2017-10-20 06:07] LABS: HEPATITIS B SURFACE AG Negative (Negative); Hepatitis A IgM Antibody Negative (Negative); Hepatitis B Core AB IgM Negative (Negative)
--- NOTE | 2017-10-20 07:06 | DS.PCM_ITS ---
Discharge Date and Diagnosis Date of Admission: 10/18/17 Date of Discharge: 10/19/17 - left AMA - Primary Discharge Diagnosis acute hepatitis acute cholecystitis heroin abuse Hospital Course and Treatment Imaging Results: Laboratory Tests 10/18/17 10/18/17 10/18/17 13:40 13:40 13:40 WBC 3.4 L RBC 4.13 L Hgb 11.2 L Hct 34.7 L MCV 84.0 MCH 27.1 MCHC 32.3 RDW 14.0 RDW Differential 43.0 Plt Count 64 L MPV 9.6 Immature Gran % (Auto) 0.000 Neut % (Auto) 81.4 H Lymph % (Auto) 16.0 L [place] % (Auto) 2.0 Eos % (Auto) 0.6 Baso % (Auto) 0.0 Absolute Neuts (auto) 2.8 Absolute Lymphs (auto) 0.55 L Total Counted Not Reportable Platelet Estimate MKD DEC PT 16.4 H INR 1.3 APTT 40.7 H Sodium 139 Potassium 3.6 Chloride 106 Carbon Dioxide 22.0 Anion Gap 11 BUN 7 Creatinine 0.84 Estim Creat Clear Calc 107.77 Est GFR (MDRD) Af Amer 111 Est GFR (MDRD) Non-Af 92 BUN/Creatinine Ratio 8.4 L Glucose 98 Lactic Acid Calcium 7.7 L Total Bilirubin 1.70 H Direct Bilirubin AST 70 H ALT 120 H Alkaline Phosphatase 326 H Troponin I < 0.015 Total Protein 5.6 L Albumin 2.6 L Globulin 3.0 Albumin/Globulin Ratio 0.9 Serum , Qual Acetaminophen Hepatitis A IgM Ab Hep Bs Antigen Hep B Core IgM Ab Hepatitis C Ab (EIA) HIV 1&2 Antibody 10/18/17 10/18/17 10/18/17 13:40 13:40 16:18 WBC RBC Hgb Hct MCV MCH MCHC RDW RDW Differential Plt Count MPV Immature Gran % (Auto) Neut % (Auto) Lymph % (Auto) [place] % (Auto) Eos % (Auto) Baso % (Auto) Absolute Neuts (auto) Absolute Lymphs (auto) Total Counted Platelet Estimate PT INR APTT Sodium Potassium Chloride Carbon Dioxide Anion Gap BUN Creatinine Estim Creat Clear Calc Est GFR (MDRD) Af Amer Est GFR (MDRD) Non-Af BUN/Creatinine Ratio Glucose Lactic Acid 4.5 H* Calcium Total Bilirubin Direct Bilirubin AST ALT Alkaline Phosphatase Troponin I < 0.015 Total Protein Albumin Globulin Albumin/Globulin Ratio Serum , Qual NEGATIVE Acetaminophen Hepatitis A IgM Ab Hep Bs Antigen Hep B Core IgM Ab Hepatitis C Ab (EIA) HIV 1&2 Antibody 10/18/17 10/18/17 10/18/17 16:18 16:18 16:18 WBC RBC Hgb Hct MCV MCH MCHC RDW RDW Differential Plt Count MPV Immature Gran % (Auto) Neut % (Auto) Lymph % (Auto) [place] % (Auto) Eos % (Auto) Baso % (Auto) Absolute Neuts (auto) Absolute Lymphs (auto) Total Counted Platelet Estimate PT INR APTT Sodium Potassium Chloride Carbon Dioxide Anion Gap BUN Creatinine Estim Creat Clear Calc Est GFR (MDRD) Af Amer Est GFR (MDRD) Non-Af BUN/Creatinine Ratio Glucose Lactic Acid Calcium Total Bilirubin Direct Bilirubin AST ALT Alkaline Phosphatase Troponin I Total Protein Albumin Globulin Albumin/Globulin Ratio Serum , Qual Acetaminophen 7.9 L Hepatitis A IgM Ab Negative Hep Bs Antigen Negative Hep B Core IgM Ab Negative Hepatitis C Ab (EIA) >11.0 H HIV 1&2 Antibody Non-Reactive 10/18/17 10/19/17 10/19/17 18:15 06:10 06:10 WBC 12.1 H RBC 3.88 L Hgb 10.5 L Hct 32.4 L MCV 83.5 MCH 27.1 MCHC 32.4 RDW 14.6 RDW Differential 44.3 H Plt Count 57 L MPV 10.7 Immature Gran % (Auto) Neut % (Auto) Lymph % (Auto) [place] % (Auto) Eos % (Auto) Baso % (Auto) Absolute Neuts (auto) Absolute Lymphs (auto) Total Counted Platelet Estimate PT 16.6 H INR 1.3 APTT Sodium Potassium Chloride Carbon Dioxide Anion Gap BUN Creatinine Estim Creat Clear Calc Est GFR (MDRD) Af Amer Est GFR (MDRD) Non-Af BUN/Creatinine Ratio Glucose Lactic Acid 3.9 H Calcium Total Bilirubin Direct Bilirubin AST ALT Alkaline Phosphatase Troponin I Total Protein Albumin Globulin Albumin/Globulin Ratio Serum , Qual Acetaminophen Hepatitis A IgM Ab Hep Bs Antigen Hep B Core IgM Ab Hepatitis C Ab (EIA) HIV 1&2 Antibody 10/19/17 10/19/17 10/19/17 06:10 07:48 07:48 WBC RBC Hgb Hct MCV MCH MCHC RDW RDW Differential Plt Count MPV Immature Gran % (Auto) Neut % (Auto) Lymph % (Auto) [place] % (Auto) Eos % (Auto) Baso % (Auto) Absolute Neuts (auto) Absolute Lymphs (auto) Total Counted Platelet Estimate PT INR APTT Sodium 141 Potassium 3.9 Chloride 113 H Carbon Dioxide 22.0 Anion Gap 6 BUN 9 Creatinine 0.65 Estim Creat Clear Calc 139.27 Est GFR (MDRD) Af Amer 148 Est GFR (MDRD) Non-Af 123 BUN/Creatinine Ratio 13.8 Glucose 111 H Lactic Acid 1.2 Calcium 7.1 L Total Bilirubin 1.90 H Direct Bilirubin 1.29 H AST 69 H ALT 104 H Alkaline Phosphatase 219 H Troponin I Total Protein 4.9 L Albumin 2.4 L Globulin 2.5 Albumin/Globulin Ratio Serum , Qual Acetaminophen Hepatitis A IgM Ab Hep Bs Antigen Hep B Core IgM Ab Hepatitis C Ab (EIA) HIV 1&2 Antibody Diagnostic Data Chest X-Ray 10/18/17 12:00 IMPRESSION: No acute cardiopulmonary abnormalities. There is minimal bibasilar atelectasis. Electronically Signed: Eneida Zhang MD at 12:27 EDT Tel Direct: [phone], Service support , Abdomen/Pelvis CT 10/18/17 20:59 IMPRESSION: 1.. Cholecystic fluid surrounding the gallbladder with no definitive wall thickening and underlying cholecystitis not excluded. No evidence of common bile duct dilatation. Recommend right upper quadrant ultrasound for further characterization. 2. There is diffuse areas of periportal lucency which is a nonspecific finding and can be seen in the setting of aggressive fluid resuscitation, congestive failure, hepatitis, and nataliia hepatis mass obstructing lymphatic drainage. There is mild prominence near the nataliia hepatis. Recommend clinical correlation with probable follow-up imaging with MRI liver as clinically warranted. Electronically Signed: Saad Blackwood DO at 21:55 EDT , Service support , Liver Ultrasound 10/19/17 15:58 IMPRESSION: There is gallbladder wall thickening and pericholecystic fluid. No gallstones are seen. The findings can be seen with acalculous cholecystitis. There is no biliary ductal dilatation. The liver is enlarged with slight increased echogenicity which can be seen with fatty infiltration. There is minimal ascites in the right upper quadrant. Electronically Signed: Eneida Zhang MD at 19:36 EDT Tel Direct: [phone], Service support , Operations: None Procedures: None Summary of Care Provided: The patient is a 22 year old F with a history of heroin abuse who was admitted by the ED on 10/18/2017 with a complaint of chest pain which started morning of admission was described as retrosternal and nonradiating. She admitted to using heroin for about 6 months prior to admission and using it IV and sometimes shared needles as well and also use marijuana and Xanax as well as meth., She had SIRS criteria 2 out of 4 with tachycardia and fever at examination of the right upper quadrant tenderness. Liver enzymes were elevated with total bilirubin of 1.7 and AST and ALT of 74 and 120 respectively as well as a P of 326. She also had lactic acidosis which was at 4.5 even though her blood pressure was within normal limits. She was also noted to have thrombocytopenia with platelets of 64 and no baseline available. She was admitted and managed for sepsis due to possible acute hepatitis and acute cholecystitis. Abdomen and pelvis showed normal liver parenchyma with surrounding mild hepatic fluid and pericholecystic fluid surrounding the gallbladder. Yates's sign remain negative. 418 showed the size of 22 cm with slight increased and heterogeneous echogenicity of the liver and the gallbladder was also normal in size with a wall measuring up to 10 mm and negative sonographic Yates sign, fluid and no abnormalities in the lumen of the gallbladder. Patient was started on IV vancomycin and Zosyn and this was continued until the evening of 10/19/2017 around 9 PM when patient signed out AMA. Compressed Gases Tester was not present at that time, and came morning of 10/20/17 to realise from nurse's note (10/20/17 @ 21:22) that patient insisted on signing out AMA for her to be in the hospital. Per nurse's note, attempts were made to talk to the patient about the importance of her to be in the hospital and to be treated. Her mother was also is at bedside trying to convince her to stay. However patient refused and insisted on being discharged. Hepatitis screen was ordered at admission and were still pending at time of patient leaving AMA. Hepatitis screen seen on 10/20/17 was negative for hepatitis A and B antigen or anbibody, but was positive for Hepatitis C antibody; HCV RNA was pending. HIV screen was negative. I tried calling patient at her cell phone number on file ([phone]) to inform her about Hepatitis C results, but there was no answer. Voicemail left. [] Discharge Diet: No Restrictions Home Medications: Medications to take at Discharge NK [NK] 08/10/17 Primary Care Physician: Chavez Scott DO [Primary Care Provider] - Disposition: Against Medical Advice Minutes spent on discharge:: 20 Patient Condition:: Good Medical Necessity - Tobacco Use Smoking Status: Current every day smoker Tobacco Use: Secondhand, Cigarettes Meaningful Use Info Meaningful Use Diagnoses (Choose all that apply): None applicable Code Visit Inpatient E&M: 54741 Disch Hosp
[2017-10-20 11:48] LABS: Hep C Antibodies >11.0 s/co ratio (0.0-0.9)
[2017-10-20 20:08] LABS: HCV Quant. RNA PCR 16900 IU/mL (.)
--- NOTE | 2017-10-22 17:37 | PCM.DC ---
You will use the following diet at home:: No restrictions Your food should be the consistency of: Regular Your liquids should be the consistency of: Regular/Thin Discharge Activity: Return to Normal Activity Instructions: ED Chest Pain NonCardiac Allergies/Adverse Reactions: Allergies No Known Allergies Allergy (Verified 08/10/17 12:11) Medications to take at Discharge NK [NK] 08/10/17 Primary Care Physician: Chavez Scott DO [Primary Care Provider] - Test Results: Test results from this visit will be discussed in further detail at your follow-up appointment, if applicable. Proposed Discharge Date: 10/20/17 - Left hospital against medical advice on 10/20/17
[2017-10-23 10:10] LABS: HCV log 10 4.228 (.)
== END 2017-10-19 21:25 | disposition left against medical advice (07) | DRG 416 ==
LOC: ED 15:07 → PCU 15:26
PROVIDERS: Internal Medicine; Admitting Provider Student in an Organized Health Care Education/Training Program; Emergency Provider Emergency Medicine; Family Provider Preventive Medicine Occupational Medicine; PCP Preventive Medicine Occupational Medicine; Visit Provider Student in an Organized Health Care Education/Training Program
DX: A41.9 Sepsis, unspecified organism (principal); B17.9 Acute viral hepatitis, unspecified; K81.0 Acute cholecystitis; F11.10 Opioid abuse, uncomplicated; D69.6 Thrombocytopenia, unspecified; E87.2 Acidosis; F17.210 Nicotine dependence, cigarettes, uncomplicated; D61.818 Other pancytopenia
CPT/HCPCS: 36415; 71045; 74177; 76705; 80048; 80053; 80074; 80076; 80329; 83605; 84484; 84703; 85025; 85027; 85610; 85730; 86703; 87040; 87522; 93005; 99218; 99285; 99406; J7030; J7050; Q9967; A4216; G0378; G0480

== ENCOUNTER 2018-01-31 23:20 | Emergency (ER) | payer MEDICAID, SELFPAY ==
[2018-01-31 23:22] VITALS: BP 137/88; PULSE 128; RESP 28; TEMP 36.5; O2SAT 100; BMI 24.2
[2018-01-31 23:44] LABS: Absolute Lymphocyte Count 3.21 X10^3/ul (0.83-4.51); Basophil# 0.05 X10^3/uL; Basophil% 0.7 % (0-1); Eosinophil# 0.13 X10^3/uL; Eosinophils% 1.9 % (0-5); Hematocrit 38.7 % (37-47); Hemoglobin 12.5 g/dl (12.0-15.0); Lymphocyte # 3.21 X10^3/ul (4.0); Lymphocyte % 46.1 % (19-41); Mean Corp Hgb Conc 32.3 g/gl (32-36); Mean Corpuscular Hgb 26.8 pg (27.0-32.0); Mean Platelet Vol. 9.2 fl (6.2-12.0); Monocyte# 0.59 X10^3/uL; Monocyte% 8.5 % (0-10); Neutrophil # 2.97 X10^3/uL (2.7-7.7); Neutrophil % 42.7 % (47-70); Platelet Count 226 K/mm3 (150-450); RBC Distribution Width CV 15.9 % (11.6-14.6); RBC Distribution Width SD 47.7 fl (35.1-43.9); Red Blood Count 4.66 M/mm3 (4.2-5.4)
[2018-01-31 23:45] LABS: POSITIVE COUNT NO; POSITIVE DIFFERENTIAL NO; POSITIVE MORPHOLOGY NO
[2018-01-31 23:49] LABS: Anion Gap 8 (5-15); BUN 6 mg/dL (7-18); BUN/Creat Ratio 6.5 RATIO (10-20); Calcium,Total 9.2 mg/dL (8.5-10.1); Chloride 102 mmol/L (98-107); Creatinine, Serum 0.92 mg/dL (0.55-1.02); EST Glomerular Filtration Rate 82 mL/min (>60); Est Glom Filt Rate - Afr Amer 100 mL/min (>60); Estimated Creatinine Clearance 94.86 ml/min; Glucose 117 mg/dL (74-106); Potassium 3.4 mmol/L (3.5-5.1); Sodium Level 136 mmol/L (136-145)
[2018-02-01 00:05] LABS: Alcohol, Blood (Medical)-Serum < 3.0 mg/dL
[2018-02-01 00:17] LABS: Pregnancy, Serum, hCG Quali. NEGATIVE Negative (0-9 Nonpreg)
[2018-02-01] MEDS: 0.9% Normal Saline 1,000 ML 150 ML IV (00:39)
[2018-02-01 01:26] VITALS: BP 129/91; PULSE 108; RESP 16; O2SAT 100
[2018-02-01 01:35] LABS: Amphetamine Urine VISTA POSITIVE (<1000 ng/mL); Barbiturate Urine VISTA NEGATIVE (< 200 ng/mL); Benzodiazepine Urine VISTA POSITIVE (< 200 ng/mL); Cocaine Urine VISTA NEGATIVE (< 300 ng/mL); Ecstacy Urine VISTA POSITIVE (< 500 ng/mL); Methadone Urine VISTA NEGATIVE (< 300 ng/mL); PCP Urine VISTA NEGATIVE (< 25 ng/mL); THC Urine VISTA NEGATIVE (< 50 ng/mL); Vista UDS pH Range 6
--- NOTE | 2018-02-01 01:47 | CT_ITS ---
STUDY: CT OF THE HIP WITH CONTRAST, LEFT REASON FOR EXAM: Female, 22 years old. Abscess of left groin RADIATION DOSAGE (If Supplied By Facility): CTDIvol = ( 11.56 ) mGy, DLP = ( 579.62 ) mGycm. Individualized dose optimization techniques were used for this CT.? TECHNIQUE: Axial CT images of the hip were performed without contrast followed by sagittal and coronal reconstructions. Individualized dose optimization techniques were used for this CT. 100 cc of Isovue-300 were given. COMPARISON: None. FINDINGS: Multiple left ovary cysts, measuring up to 2.9 x 2.5 cm. Induration of subcutaneous tissues of the anterior hip compatible with cellulitis. No distinct abscesses are identified at this time. Several small adjacent lymph nodes are present which are likely reactive. The underlying musculature is normal. No underlying osseous abnormalities are seen. Visualized portions of bowel and bladder are unremarkable. CT/Extremity Lower WITH Contrast IMPRESSION: CT findings suggest cellulitis involving the subcutaneous tissues at the level of the left anterior hip. No evidence of abscess or underlying muscular or osseous abnormality. Electronically Signed: Zion Albarran MD at 2:29 EDT Tel , Service support ,
[2018-02-01 01:48] VITALS: BP 124/89; PULSE 123; RESP 18; O2SAT 100
--- NOTE | 2018-02-01 02:51 | ED.VISSUMM ---
- ER Visit Summary Date of Service: 02/01/18 Chief Complaint: [Unresponsive] History of Present Illness: The patient is a 22 F [presents to the emergency department with an unresponsive episode. EMS was called to a suspected drug house. Per other individuals at this house patient was found in the kitchen unresponsive on the floor. They dragged her into another room and threw ice cubes and cold water on her to attempt to wake her up. On EMS arrival patient awoke to sternal rub and stimulation and was following commands. Patient did admit to using heroin this evening as well as methamphetamines. Patient states that she is not overdose in the past. Patient states that she was clean for several months that she was in correction. Patient states that she relapsed about 5 days ago. Patient complains of some redness and swelling to her left thigh and her left wrist.] Physical Examination: [HEENT-PERRLA, EOMI. Cranial nerves II through XII grossly intact. TMs clear. Mucous membranes moist. No adenopathy. Cardiovascular-regular rate and tachycardic. No murmurs auscultated. Lungs-clear to auscultation, chest wall stable without crepitus or subcu emphysema Abdomen-normoactive bowel sounds, soft, nontender, no rebound or rigidity, no peritoneal signs. Extremities-intact ?4, normal range of motion, normal pulses. Left groin/thigh reveals area of skin induration and erythema/cellulitis to about mid thigh. Evaluation of the left wrist reveals a oval-shaped area of erythema and slight induration. No fluctuance. Test Results: [CBC with differential showed white count 7.0, hemoglobin 12.5, hematocrit 39, platelets 226. Chemistries unremarkable. HCG was negative. Alcohol was negative. Toxicology screen was positive for opiates, amphetamines, MDMA, and benzodiazepines. CT of the left hip/lower extremity obtained showed cellulitis but no evidence of abscess.] Emergency Department Course and Treatment: [Patient was given Unasyn IV. She was observed in the department for over 3 hours. Patient does not want to be admitted for IV antibiotics and would prefer to attempt outpatient therapy. Patient states the cellulitis of the left thigh is actually significantly improved compared to what it looked like several days ago.] Treatment Plan: [She will be started on Bactrim and Keflex and advised to follow-up with her primary care physician in 3-5 days. Area of erythema was outlined in permanent marker.] Patient was counseled on following up with [facility] facility for outpatient detox however she states that she has another facility in mind that she would like to work with. Disposition: [Discharged home in stable condition] Impression: [Heroin overdose Illicit drug use Cellulitis left thigh and left wrist] This note was generated with [employer] dictation software. It may contain incorrect words, spelling, and punctuation that were not noted in review of the chart prior to signing ED Disposition - Plan for ED Patient: Chief Complaint: Substance Abuse Referrals: Chavez Scott DO [Primary Care Provider] -
--- NOTE | 2018-02-01 02:56 | ED.DCSUM_ITS ---
- ER Visit Summary Date of Service: 02/01/18 Chief Complaint: [Unresponsive] History of Present Illness: The patient is a 22 F [presents to the emergency department with an unresponsive episode. EMS was called to a suspected drug house. Per other individuals at this house patient was found in the kitchen unresponsive on the floor. They dragged her into another room and threw ice cubes and cold water on her to attempt to wake her up. On EMS arrival patient awoke to sternal rub and stimulation and was following commands. Patient did admit to using heroin this evening as well as methamphetamines. Patient states that she is not overdose in the past. Patient states that she was clean for several months that she was in [facility]. Patient states that she relapsed about 5 days ago. Patient complains of some redness and swelling to her left thigh and her left wrist.] Physical Examination: [HEENT-PERRLA, EOMI. Cranial nerves II through XII grossly intact. TMs clear. Mucous membranes moist. No adenopathy. Cardiovascular-regular rate and tachycardic. No murmurs auscultated. Lungs-clear to auscultation, chest wall stable without crepitus or subcu emphysema Abdomen-normoactive bowel sounds, soft, nontender, no rebound or rigidity, no peritoneal signs. Extremities-intact ?4, normal range of motion, normal pulses. Left groin/thigh reveals area of skin induration and erythema/cellulitis to about mid thigh. Evaluation of the left wrist reveals a oval-shaped area of erythema and slight induration. No fluctuance. Test Results: [CBC with differential showed white count 7.0, hemoglobin 12.5, hematocrit 39, platelets 226. Chemistries unremarkable. HCG was negative. Alcohol was negative. Toxicology screen was positive for opiates, amphetamines, MDMA, and benzodiazepines. CT of the left hip/lower extremity obtained showed cellulitis but no evidence of abscess.] Emergency Department Course and Treatment: [Patient was given Unasyn IV. She was observed in the department for over 3 hours. Patient does not want to be admitted for IV antibiotics and would prefer to attempt outpatient therapy. Patient states the cellulitis of the left thigh is actually significantly improved compared to what it looked like several days ago.] Treatment Plan: [She will be started on Bactrim and Keflex and advised to follow-up with her primary care physician in 3-5 days. Area of erythema was outlined in permanent marker.] Patient was counseled on following up with [facility] facility for outpatient detox however she states that she has another facility in mind that she would like to work with. Disposition: [Discharged home in stable condition] Impression: [Heroin overdose Illicit drug use Cellulitis left thigh and left wrist] This note was generated with [employer] dictation software. It may contain incorrect words, spelling, and punctuation that were not noted in review of the chart prior to signing ED Disposition - Plan for ED Patient: Chief Complaint: Substance Abuse Referrals: Chavez Scott DO [Primary Care Provider] -
--- NOTE | 2018-02-01 02:56 | ED.DEP ---
ED Disposition - Plan for ED Patient: Chief Complaint: Substance Abuse Instructions: ED Drug Abuse General, ED Narcotic Abuse, ED Infec Skin Cellulitis Prescriptions: Cephalexin [Keflex] 500 mg PO Q6 #40 cap Smz/Tmp Ds [Bactrim Ds] 1 tab PO BID #20 tab Referrals: Chavez Scott DO [Primary Care Provider] - 3-5 Days
[2018-02-01 03:20] VITALS: PULSE 117; RESP 18; O2SAT 98
== END 2018-02-01 03:23 ==
PROVIDERS: Emergency Provider Emergency Medicine; Family Provider Preventive Medicine Occupational Medicine; PCP Preventive Medicine Occupational Medicine
DX: T40.1X1A Poisoning by heroin, accidental (unintentional), initial encounter (principal); Y92.000 Kitchen of unspecified non-institutional (private) residence as the place of occurrence of the external cause; F19.10 Other psychoactive substance abuse, uncomplicated; L03.114 Cellulitis of left upper limb; L03.116 Cellulitis of left lower limb; Z72.0 Tobacco use
CPT/HCPCS: 73701; 80048; 80307; 80320; 84703; 85025; 96361; 96365; 99285; J7030; Q9967; A4216; G0480; J0295

== ENCOUNTER → 2018-02-10 13:28 | Outpatient (CLI) | payer MEDICAID, SELFPAY ==
[2018-02-10 16:23] LABS: Chlamydia Trachomatis by PCR Negative (Negative); Neisserai gonorrhoeae by PCR Negative (Negative); Probe Check PASS; Sample Adequacy Control PASS; Specimen Processing Control PASS
== END ==
PROVIDERS: Family Provider Preventive Medicine Occupational Medicine; PCP Preventive Medicine Occupational Medicine
DX: R30.0 Dysuria (principal)
CPT/HCPCS: 87491; 87591

== ENCOUNTER → 2018-09-06 11:45 | Outpatient (CLI) | payer MEDICAID, SELFPAY ==
[2018-09-06 13:46] LABS: Absolute Lymphocyte Count 2.04 X10^3/ul (0.83-4.51); Absolute Neutrophil Count 3.1 X10^3/uL (2.0-7.7); Basophil# 0.02 X10^3/uL; Basophil% 0.4 % (0-1); Eosinophil# 0.08 X10^3/uL; Eosinophils% 1.4 % (0-5); Hemoglobin 12.7 g/dl (12.0-15.0); Lymphocyte # 2.04 X10^3/ul (4.0); Lymphocyte % 36.8 % (19-41); Mean Corp Hgb Conc 33.4 g/gl (32-36); Mean Corpuscular Hgb 28.6 pg (27.0-32.0); Mean Corpuscular Volume 85.6 fL (81-99); Monocyte% 5.4 % (0-10); Platelet Count 204 K/mm3 (150-450); RBC Distribution Width CV 14.1 % (11.6-14.6); RBC Distribution Width SD 43.7 fl (35.1-43.9); Red Blood Count 4.44 M/mm3 (4.2-5.4); White Blood Count 5.5 K/mm3 (4.4-11.0)
[2018-09-06 13:49] LABS: POSITIVE COUNT NO; POSITIVE DIFFERENTIAL NO; POSITIVE MORPHOLOGY NO
[2018-09-06 13:52] LABS: International Normalized Ratio 1.1; Prothrombin Time (Protime)PT. 13.6 SECONDS (11.7-14.9)
[2018-09-06 13:53] LABS: Partial Thromboplast Time 29.2 Seconds (24.1-36.2)
[2018-09-06 14:18] LABS: AST(SGOT) 29 U/L (15-37); Alanine Aminotransfer ALT/SGPT 61 U/L (13-56); Alkaline Phosphatase 109 U/L (45-117); Anion Gap 5 (5-15); BUN 6 mg/dL (7-18); BUN/Creat Ratio 8.2 RATIO (10-20); Bilirubin, Direct 0.06 mg/dL (0.00-0.30); Calcium,Total 8.6 mg/dL (8.5-10.1); Chloride 109 mmol/L (98-107); Cholesterol 156 mg/dL (200); Creatinine, Serum 0.73 mg/dL (0.55-1.02); EST Glomerular Filtration Rate 106 mL/min (>60); Est Glom Filt Rate - Afr Amer 129 mL/min (>60); Ferritin 10 ng/mL (8-252); GGTP 6 U/L (5-55); Globulin 3.6 g/dL (2.2-4.2); Glucose 89 mg/dL (74-106); High Density Lipoprotein 36 mg/dL; Iron 36 ug/dL (50-170); Iron Binding Capacity,Total 467 ug/dL (250-450); Protein, Total 7.6 g/dL (6.4-8.2); Sodium Level 142 mmol/L (136-145); T4 Total, Thyroxin 10.4 ug/dL (4.8-13.9); Thyroid Stim Hormone (TSH) 1.19 uIU/mL (0.358-3.74); Triglycerides 214 mg/dL; Very Low Density Lipoprotein 43 mg/dL (5-40)
[2018-09-06 14:20] LABS: Vitamin B12 540 pg/mL (211-911)
[2018-09-07 20:06] LABS: ANTINUCLEAR ANTIBODIES DIRECT Negative (Negative)
[2018-09-08 12:43] LABS: Alpha Antitrypsin Serum 165 mg/dL (90-200); Anti-Mitochondrial AB <20.0 Units (0.0-20.0)
[2018-09-11 16:09] LABS: Ceruloplasmin 32.2 mg/dL (19.0-39.0); Comment 2b (.); HCV Quant. RNA PCR 1490 IU/mL (.); HEPATITIS B SURFACE AG Negative (Negative); Hepatitis B Core Ab Total Negative (Negative); Immunoglobulin A 89 mg/dL (87-352); PROEL- A/G Ratio 1.1 (0.7-1.7); PROEL- Alpha-1 Globulin 0.3 g/dL (0.0-0.4); PROEL- Beta Globulin 1.2 g/dL (0.7-1.3); PROEL- Globulin, Total 3.5 g/dL (2.2-3.9); PROEL- TOTAL PROTEIN 7.5 g/dL (6.0-8.5)
[2018-09-12 16:28] LABS: Anti-Smooth Muscle ABS 5 Units (0-19); Hep B Surface Antibodies Reactive (.); Hep C Antibodies >11.0 s/co ratio (0.0-0.9); Hepatitis A AB, Total Negative (Negative)
[2018-09-12 16:29] LABS: AFP, Tumor Marker 1.2 ng/mL (0.0-8.3); Vitamin A, Retinol 39.9 ug/dL (18.9-57.3)
[2018-09-12 16:30] LABS: CMV by PCR Negative (Negative); HCV log 10 3.173 (.); t-Transglutaminase IgA <2 U/mL (0-3)
[2018-09-24 12:27] LABS: Hepatitis C Genotype 2b
== END ==
PROVIDERS: Family Provider Preventive Medicine Occupational Medicine; PCP Preventive Medicine Occupational Medicine
DX: B19.20 Unspecified viral hepatitis C without hepatic coma (principal)
CPT/HCPCS: 36415; 80048; 80061; 80076; 82103; 82105; 82390; 82607; 82728; 82784; 82977; 83516; 83540; 83550; 84165; 84436; 84443; 84590; 85025; 85610; 85730; 86038; 86704; 86706; 86708; 86803; 87340; 87496; 87522; 87902

== ENCOUNTER 2019-03-24 22:00 | Emergency (ER) | payer MEDICAID, SELFPAY ==
[2019-03-24 22:00] VITALS: BP 110/63; PULSE 100; RESP 16; TEMP 36.9; O2SAT 98; BMI 25.8
--- NOTE | 2019-03-24 22:52 | ED.DCSUM_ITS ---
- ER Visit Summary Date of Service: 03/24/19 Chief Complaint: Abdominal pain History of Present Illness: The patient is a 23 F presenting with abdominal pain. She states this started this morning. Pain has been gradual and consistent throughout the day. She tried ibuprofen at home. She has nausea with no vomiting. She has constipation. Denies fever or chills. Denies possibility of . She has urinary frequency with no dysuria. Denies other complaints. Physical Examination: Vitals are stable. Patient is afebrile. Alert no acute distress. HEENT exam is unremarkable. Neck is supple. Lungs are clear and equal bilaterally. Heart is regular rate and rhythm. Abdomen is soft right lower quadrant tenderness with no guarding or rebound Extremities are unremarkable. Skin is warm and dry. No focal neurologic deficit. Remainder of exam is unremarkable. Emergency Department Course and Treatment: Patient was given IV fluids, Zofran. CBC, chemistries unremarkable. Urinalysis unremarkable. hCG negative. CT abdomen pelvis with IV and oral contrast shows normal enhanced CT of the abdomen and pelvis. On reevaluation, patient is resting comfortably. She is given prescription for Bentyl and Zofran. She is advised to follow-up with her primary care physician. Advised return to the ED for worsening complaints. Disposition: Discharge home Impression: Abdominal pain This note was generated with [employer] dictation software. It may contain incorrect words, spelling, and punctuation that were not noted in review of the chart prior to signing ED Disposition - Plan for ED Patient: Instructions: ABDOMINAL PAIN, Unknown Cause, (Female) Prescriptions: Dicyclomine HCl [Bentyl] 20 mg PO TIDAC #20 cap Prescription Printed Ondansetron [Zofran Odt] 4 mg PO Q8H PRN PRN #10 tab PRN Reason: Nausea Prescription Printed Referrals: Chavez Scott DO [Primary Care Provider] -
[2019-03-24] MEDS: 0.9% Normal Saline 1,000 ML 1000 ML IV (23:01)
[2019-03-24] MEDS: Ondansetron 4 MG/2 ML Vial IV (23:01)
[2019-03-24 23:14] LABS: Red Blood Cells-Urine 0 SEEN /hpf (0-5); White Blood Cells 0 SEEN /hpf (0-5)
[2019-03-24 23:14] LABS: Absolute Lymphocyte Count 0.91 X10^3/uL (0.83-4.51); Absolute Neutrophil Count 4.7 X10^3/uL (2.0-7.7); Basophil# 0.01 X10^3/uL; Basophil% 0.2 % (0-1); Eosinophil# 0.08 X10^3/uL; Eosinophils% 1.3 % (0-5); Hematocrit 37.3 % (37-47); Hemoglobin 12.7 g/dL (12.0-15.0); Lymphocyte # 0.91 X10^3/ul (4.0); Lymphocyte % 14.8 % (19-41); Mean Corpuscular Hgb 28.9 pg (27.0-32.0); Mean Corpuscular Volume 84.8 fL (81-99); Monocyte# 0.42 X10^3/uL; Monocyte% 6.8 % (0-10); NRBC Flagged by Analyzer 0 % (0-5); Neutrophil # 4.72 X10^3/uL (2.7-7.7); Neutrophil % 76.7 % (47-70); Platelet Count 159 K/mm3 (150-450); RBC Distribution Width CV 12.6 % (11.6-14.6); RBC Distribution Width SD 38.2 fl (35.1-43.9); White Blood Count 6.2 K/mm3 (4.4-11.0)
[2019-03-24 23:28] LABS: Anion Gap 7 (5-15); BUN 11 mg/dL (7-18); BUN/Creat Ratio 13.6 RATIO (10-20); Calcium,Total 8.4 mg/dL (8.5-10.1); Chloride 111 mmol/L (98-107); Creatinine, Serum 0.81 mg/dL (0.55-1.02); EST Glomerular Filtration Rate 94 mL/min (>60); Est Glom Filt Rate - Afr Amer 114 mL/min (>60); Estimated Creatinine Clearance 106.84 ml/min; Glucose 131 mg/dL (74-106); Potassium 3.5 mmol/L (3.5-5.1); Sodium Level 141 mmol/L (136-145)
[2019-03-24 23:35] LABS: Color, Urine Yellow (Yellow); Glucose, Dipstick Normal (Normal); Ketone-Dipstick 15 mg/dl (Negative); Leukocyte Esterase-Dipstick Negative /ul (Negative); Nitrite-Dipstick Negative (Negative); Occult Blood-Urine Negative /ul (Negative); Protein-Dipstick Negative (Negative); Specific Gravity, Urine 1.015 (1.002-1.030); Urine Bilirubin Dipstick Negative (Negative); Urine Clarity Clear (Clear); Urine Urobilinogen Normal (Normal)
[2019-03-24 23:35] LABS: Internal QC Validated? YES +Cl - CLEAR BKGD; Pregnancy, Serum, hCG Quali. NEGATIVE Negative
[2019-03-24 23:41] LABS: Bacteria RARE /hpf (None Seen); Mucous, Urine RARE /hpf (<or=2+); Squamous Epithelial Cells - UA 0-5 SEEN /hpf (5-10)
--- NOTE | 2019-03-25 01:10 | ED.DEP ---
ED Disposition - Plan for ED Patient: Instructions: ABDOMINAL PAIN, Unknown Cause, (Female) Prescriptions: Dicyclomine HCl [Bentyl] 20 mg PO TIDAC #20 capsule Ondansetron [Zofran Odt] 4 mg PO Q8H PRN PRN #10 tablet PRN Reason: Nausea Referrals: Chavez Scott DO [Primary Care Provider] -
[2019-03-25 01:22] VITALS: RESP 16
--- NOTE | 2019-03-25 22:49 | CT_ITS ---
STUDY: CT ABDOMEN AND PELVIS WITH CONTRAST REASON FOR EXAM: Female, 23 years old. Abdominal pain RADIATION DOSAGE (If Supplied By Facility): CTDIvol = ( 8.18 ) mGy, DLP = ( 500.50 ) mGycm TECHNIQUE: Transaxial images were obtained from the dome of the diaphragm to the symphysis pubis without oral contrast. Oral and amp; IV Gastrografin and amp; 100mL Isovue-370 was administered. Sagittal and coronal images were reconstructed. Individualized dose optimization techniques were used for this CT. COMPARISON: None. FINDINGS: October 18, 2017 The visualized portions of the heart are within normal limits. Normal liver. Normal gallbladder and extrahepatic biliary system. Normal spleen. Normal pancreas. Normal bilateral adrenal glands. Normal right kidney. Normal left kidney. Normal visualized stomach. Normal small intestine. Normal colon. The appendix is visualized and appears normal. Normal abdominal aorta. Normal inferior vena cava. Normal retroperitoneum. Normal urinary bladder. Normal uterus and ovaries. There is NO ascites, free air, abscess or adenopathy. Normal abdominal wall. Normal osseous structures. CT/Abdomen/Pelvis WITH Contrast IMPRESSION: Normal enhanced CT of the abdomen and pelvis. Electronically Signed: Cordell Acevedo MD at 0:59 EST , Service support ,
== END 2019-03-25 01:27 | disposition home or self-care (01) ==
PROVIDERS: Emergency Provider Emergency Medicine; Family Provider Preventive Medicine Occupational Medicine; PCP Preventive Medicine Occupational Medicine
DX: R10.9 Unspecified abdominal pain (principal); R11.0 Nausea; K59.00 Constipation, unspecified; R35.0 Frequency of micturition; Z72.0 Tobacco use
CPT/HCPCS: 36415; 74177; 80048; 81001; 84703; 85025; 96361; 96374; 99283; J7030; Q9967; A4216; J2405

== ENCOUNTER → 2019-06-26 13:27 | Outpatient (CLI) | payer MEDICAID, SELFPAY ==
[2019-06-27 02:10] LABS: Rapid Plasmin Reagin (RPR) NONREACTIVE (NONREACTIVE)
[2019-06-27 08:56] LABS: HIV - WCH Non-Reactive (Nonreactive); Hepatitis B Surface Antibody Reactive
[2019-06-27 08:59] LABS: Hepatitis C Antibody REACTIVE (Nonreactive)
[2019-06-27 14:18] LABS: Hepatitis B Surface Antigen Non-Reactive (Nonreactive)
[2019-06-28 11:14] LABS: HSV 1 IgG < 0.91 index (0.00-0.90); HSV 2 IgG < 0.91 index (0.00-0.90)
[2019-06-29 03:07] LABS: HCV Quant. RNA PCR 45800 IU/mL (.)
[2019-06-29 15:07] LABS: HCV log 10 4.661 (.)
[2019-07-04 16:56] LABS: HPV Reflexed? NOT INDICATED
== END ==
PROVIDERS: PCP Preventive Medicine Occupational Medicine; Visit Provider Obstetrics & Gynecology
DX: Z11.3 Encounter for screening for infections with a predominantly sexual mode of transmission (principal); Z72.51 High risk heterosexual behavior; B19.20 Unspecified viral hepatitis C without hepatic coma; Z12.4 Encounter for screening for malignant neoplasm of cervix
CPT/HCPCS: 36415; 86592; 86695; 86696; 86703; 86706; 86803; 87340; 87491; 87522; 87591; 88175; G0145

== ENCOUNTER 2020-05-14 13:48 | Emergency (ER) | payer MEDICAID, SELFPAY ==
[2020-05-14 13:50] VITALS: BP 125/87; PULSE 101; RESP 18; TEMP 35.8; O2SAT 100; BMI 21.2
--- NOTE | 2020-05-14 14:19 | CT_ITS ---
STUDY: CT ABDOMEN AND PELVIS WITH CONTRAST REASON FOR EXAM: Female, 25 years old. Diffuse abdominal pain, rectal bleeding x3 days RADIATION DOSAGE (If Supplied By Facility): CTDIvol = ( 9.38 ) mGy, DLP = ( 278.31 ) mGycm TECHNIQUE: Transaxial images were obtained from the dome of the diaphragm to the symphysis pubis with oral contrast. Oral and amp; IV Gastrografin and amp; 100mL Isovue-300 was administered. Sagittal and coronal images were reconstructed. Individualized dose optimization techniques were used for this CT. COMPARISON: 2019 FINDINGS: The visualized lung bases are unremarkable. The visualized portions of the heart are within normal limits. The liver is heterogeneous, and there has been development of intrahepatic biliary dilatation since the previous study. This may be due to patient''s history of hepatitis C. Normal gallbladder and extrahepatic biliary system. Normal spleen. Normal pancreas. Normal bilateral adrenal glands. Normal right kidney. Normal left kidney. Normal visualized stomach. Normal small intestine. Retained stool noted throughout the colon. There is non-visualization of the appendix. Normal abdominal aorta. Normal inferior vena cava. Normal retroperitoneum. Normal urinary bladder. Normal-appearing uterus. There are physiologic subcentimeter right ovarian cysts, there is a 2.9 x 1.9 cm left ovarian cyst. There is a small amount of free fluid in the dependent pelvis Normal abdominal wall. Normal osseous structures. CT/Abdomen/Pelvis WITH Contrast IMPRESSION: Development of intrahepatic biliary dilatation since the previous study. This is likely due to patient''s history of hepatitis C. Gallbladder and extrahepatic common bile ducts are normal. No evidence of a retained gallstone or biliary stricture or mass Retained stool throughout the colon Ovarian cysts, no specific follow-up needed Electronically Signed: Burke Hoyos MD at 17:04 EST , Service support ,
--- NOTE | 2020-05-14 14:26 | ED.VISSUMM ---
- ER Visit Summary Date of Service: 05/14/20 Chief Complaint: Blood in stool History of Present Illness: The patient is a 25 F presenting with blood in stool. Patient states she has had bright red blood per rectum over the past several days. She states blood is stool stopped 2 days ago. She has had a normal bowel movement with no blood for the past 2 days. She has history of intermittent diarrhea and constipation. She has nausea with no vomiting. She just recently finished her menstrual cycle. She denies other complaints. Physical Examination: Vitals are stable. Patient is afebrile. Alert no acute distress. HEENT exam is unremarkable. Neck is supple. Lungs are clear and equal bilaterally. Heart is regular rate and rhythm. Abdomen is soft bilateral lower quadrant tenderness with no guarding or rebound Rectal: Nontender, no gross blood, no external hemorrhoids Extremities are unremarkable. Skin is warm and dry. Remainder of exam is unremarkable. Emergency Department Course and Treatment: CBC is normal with hemoglobin 13.9. Chemistries unremarkable other than potassium 3.2. She was given potassium oral replacement. Stool is guaiac negative. CT abdomen pelvis shows development of intrahepatic biliary dilatation since the previous study. This is likely due to patient''s history of hepatitis C. Gallbladder and extrahepatic common bile ducts are normal. No evidence of a retained gallstone or biliary stricture or mass. Retained stool throughout the colon. Ovarian cysts, no specific follow-up needed. On reevaluation, patient is resting comfortably and is requesting discharge home. She will follow-up with her primary care physician and her GI physician. Advised return to ED for worsening complaints. Disposition: Discharged home Impression: GI bleed, resolved This note was generated with [employer] dictation software. It may contain incorrect words, spelling, and punctuation that were not noted in review of the chart prior to signing ED Disposition - Plan for ED Patient: Instructions: ED Lower GI Bleeding (Stable) Referrals: Chavez Scott DO [COURTESY STAFF PHYSICIAN] -
[2020-05-14 14:45] LABS: Absolute Lymphocyte Count 2.26 X10^3/uL (0.83-4.51); Absolute Neutrophil Count 2.6 X10^3/uL (2.0-7.7); Basophil# 0.02 X10^3/uL; Basophil% 0.4 % (0-1); Eosinophil# 0.06 X10^3/uL; Eosinophils% 1.1 % (0-5); Hematocrit 41.4 % (37-47); Hemoglobin 13.9 g/dL (12.0-15.0); Lymphocyte # 2.26 X10^3/ul (4.0); Lymphocyte % 42.4 % (19-41); Mean Corp Hgb Conc 33.6 g/dL (32-36); Mean Corpuscular Hgb 29.4 pg (27.0-32.0); Mean Corpuscular Volume 87.7 fL (81-99); Mean Platelet Vol. 10.3 fl (6.2-12.0); Monocyte% 7.5 % (0-10); NRBC Flagged by Analyzer 0 % (0-5); Neutrophil # 2.58 X10^3/uL (2.7-7.7); Neutrophil % 48.4 % (47-70); Platelet Count 172 K/mm3 (150-450); RBC Distribution Width CV 13.2 % (11.6-14.6); RBC Distribution Width SD 42.7 fl (35.1-43.9); Red Blood Count 4.72 M/mm3 (4.2-5.4); White Blood Count 5.3 K/mm3 (4.4-11.0)
[2020-05-14 14:57] LABS: Anion Gap 5 (5-15); BUN 6 mg/dL (7-18); BUN/Creat Ratio 6.3 RATIO (10-20); Calcium,Total 8.6 mg/dL (8.5-10.1); Chloride 108 mmol/L (98-107); Creatinine, Serum 0.96 mg/dL (0.55-1.02); EST Glomerular Filtration Rate 77 mL/min (>60); Est Glom Filt Rate - Afr Amer 93 mL/min (>60); Estimated Creatinine Clearance 91.37 ml/min; Glucose 94 mg/dL (74-106); Potassium 3.2 mmol/L (3.5-5.1); Sodium Level 141 mmol/L (136-145)
[2020-05-14] MEDS: 0.9% Normal Saline 1,000 ML 1000 ML IV (15:02)
[2020-05-14 15:28] LABS: Internal QC Validated? YES +Cl - CLEAR BKGD; Pregnancy, Serum, hCG Quali. NEGATIVE Negative
[2020-05-14 16:42] VITALS: BP 136/106; PULSE 66; RESP 18; O2SAT 100
--- NOTE | 2020-05-14 17:20 | ED.DEP ---
ED Disposition - Plan for ED Patient: Instructions: ED Lower GI Bleeding (Stable) Referrals: Chavez Scott DO [COURTESY STAFF PHYSICIAN] -
== END 2020-05-14 17:30 | disposition home or self-care (01) ==
LOC: ED 15:05
PROVIDERS: Emergency Provider Emergency Medicine; PCP Family Medicine
DX: K92.2 Gastrointestinal hemorrhage, unspecified (principal); N83.209 Unspecified ovarian cyst, unspecified side; Z86.19 Personal history of other infectious and parasitic diseases
CPT/HCPCS: 74177; 80048; 82274; 84703; 85025; 96360; 99284; J7030; Q9967; A4216

== ENCOUNTER 2020-06-03 19:09 | Emergency (ER) | payer MEDICAID, SELFPAY ==
[2020-06-03 19:10] VITALS: BP 126/85; PULSE 107; RESP 20; TEMP 36.4; O2SAT 100; BMI 19.5
[2020-06-03 19:12] VITALS: BP 126/85; PULSE 107; RESP 20; TEMP 36.4; O2SAT 100
--- NOTE | 2020-06-03 19:51 | ED.DCSUM_ITS ---
- ER Visit Summary Date of Service: 06/03/20 Chief Complaint: Dental pain and facial swelling History of Present Illness: The patient is a 25 F who goes to for dental. She reports that she has pain right mandible that started yesterday. Is a throbbing pain is 10 out of 10 at worst 910 currently. Is worsened by eating. States that it jaw has been swollen since yesterday as well. Patient reports she has an appointment with [facility] in [place] in 1 week. Patient states that she began amoxicillin yesterday. She has been on amoxicillin and Augmentin in the past 3 weeks. Physical Examination: Vitals: Stable. Afebrile. Mouth: No trismus. No edema of the floor of the mouth. Pain with percussion of right mandibular second premolar and first and second molars. There is no focal abscess. She does have mild facial swelling. General: A&O x 3. NAD. Cardiovascular exam: Regular rate and rhythm, no murmur, rub or gallop. Respiratory exam: Clear to auscultation bilaterally. No wheezes or stridor. Abdominal exam: Soft, nontender, nondistended, normal bowel sounds. No peritoneal signs. Extremity: No clubbing, cyanosis, or edema. Emergency Department Course and Treatment: Patient was treated with clindamycin and oxycodone. She is resting comfortably. Treatment Plan: Patient be discharged with clindamycin and oxycodone. Instructed follow-up with her dentist soon as possible. Return to the emergency department for any worsening symptoms. Disposition: To home in improved and stable condition. Impression: 1. Dental abscess. This note was generated with [employer] dictation software. It may contain incorrect words, spelling, and punctuation that were not noted in review of the chart prior to signing ED Disposition - Plan for ED Patient: Disposition: Home or Assisted Living Instructions: Dental Abscess Prescriptions: Clindamycin [Cleocin] 300 mg PO 4X/DAY #80 cap Prescription Printed Oxycodone [Oxyir] 5 mg PO Q4H PRN PRN 3 Days #12 tab PRN Reason: Pain Score 6-10 Prescription Printed Referrals: Dentist,Your [STAFF PHYSICIAN] - As soon as possible
[2020-06-03] MEDS: Clindamycin HCl 150 MG Capsule 300 MG PO (20:06)
[2020-06-03] MEDS: oxyCODONE 5 MG Tablet 10 MG PO (20:06)
[2020-06-03 20:08] VITALS: RESP 16
== END 2020-06-03 20:09 | disposition home or self-care (01) ==
LOC: ED 19:54
PROVIDERS: Emergency Provider Emergency Medicine; PCP Family Medicine
DX: K08.89 Other specified disorders of teeth and supporting structures (principal); K04.7 Periapical abscess without sinus; F17.210 Nicotine dependence, cigarettes, uncomplicated; Z86.19 Personal history of other infectious and parasitic diseases
CPT/HCPCS: 99283

== ENCOUNTER 2020-08-10 19:58 | Emergency (ER) | payer MEDICAID, SELFPAY ==
[2020-08-10 19:59] VITALS: BP 124/90; PULSE 122; RESP 16; TEMP 36.1; O2SAT 100; BMI 18.4
[2020-08-10 20:56] VITALS: BP 126/90; PULSE 124; RESP 22; O2SAT 100
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
== END 2020-08-10 21:13 | disposition left against medical advice (07) ==
PROVIDERS: Emergency Provider Emergency Medicine; PCP Family Medicine
DX: K08.89 Other specified disorders of teeth and supporting structures (principal); R20.2 Paresthesia of skin; K02.9 Dental caries, unspecified; R31.9 Hematuria, unspecified; R51.9 Headache, unspecified; R11.0 Nausea
CPT/HCPCS: 99281; 99282

== ENCOUNTER 2020-10-30 13:11 | Emergency (ER) | payer MEDICAID, SELFPAY ==
[2020-10-30 13:12] VITALS: BP 131/83; PULSE 106; RESP 18; TEMP 36.6; O2SAT 98; BMI 19.8
[2020-10-30 13:37] LABS: Absolute Lymphocyte Count 2.64 X10^3/uL (0.83-4.51); Basophil# 0.06 X10^3/uL; Basophil% 0.9 % (0-1); Eosinophil# 0.19 X10^3/uL; Eosinophils% 2.9 % (0-5); Hematocrit 42.9 % (37-47); Hemoglobin 13.9 g/dL (12.0-15.0); Lymphocyte # 2.64 X10^3/ul (0.83-4.51); Lymphocyte % 40.7 % (19-41); Mean Corp Hgb Conc 32.4 g/dL (32-36); Mean Corpuscular Hgb 28.3 pg (27.0-32.0); Mean Corpuscular Volume 87.4 fL (81-99); Mean Platelet Vol. 9.2 fl (6.2-12.0); Monocyte# 0.54 X10^3/uL; Monocyte% 8.3 % (0-10); NRBC Flagged by Analyzer 0 % (0-5); Neutrophil # 3.04 X10^3/uL (2.7-7.7); Neutrophil % 46.9 % (47-70); Platelet Count 231 K/mm3 (150-450); RBC Distribution Width CV 12.8 % (11.6-14.6); RBC Distribution Width SD 40.7 fl (35.1-43.9); Red Blood Count 4.91 M/mm3 (4.2-5.4); White Blood Count 6.5 K/mm3 (4.4-11.0)
[2020-10-30] MEDS: Morphine 4 MG/ML Syringe IV (13:37)
[2020-10-30] MEDS: 0.9% Normal Saline 1,000 ML 1000 ML IV (13:37)
[2020-10-30] MEDS: Ondansetron 4 MG/2 ML Vial IV (13:37)
[2020-10-30 13:41] LABS: Internal QC Validated? YES +Cl - CLEAR BKGD; Pregnancy, Urine Negative Negative
[2020-10-30 13:51] LABS: Internal QC Validated? YES +Cl - CLEAR BKGD; Pregnancy, Serum, hCG Quali. NEGATIVE Negative
[2020-10-30 13:56] LABS: ALB/GLOB Ratio 0.8 RATIO (0.9-2.4); AST(SGOT) 75 U/L (15-37); Alanine Aminotransfer ALT/SGPT 164 U/L (13-56); Albumin, Serum 3.9 g/dL (3.2-5.0); Alkaline Phosphatase 144 U/L (45-117); Anion Gap 5 (5-15); BUN 16 mg/dL (7-18); BUN/Creat Ratio 17.5 RATIO (10-20); Calcium,Total 9.1 mg/dL (8.5-10.1); Chloride 102 mmol/L (98-107); Creatinine, Serum 0.91 mg/dL (0.55-1.02); EST Glomerular Filtration Rate 81 mL/min (>60); Est Glom Filt Rate - Afr Amer 98 mL/min (>60); Globulin 4.6 g/dL (2.2-4.2); Glucose 90 mg/dL (74-106); Lipase 83 U/L (73-393); Potassium 4.5 mmol/L (3.5-5.1); Protein, Total 8.5 g/dL (6.4-8.2); Sodium Level 136 mmol/L (136-145)
--- NOTE | 2020-10-30 13:56 | CT_ITS ---
STUDY: CT ABDOMEN AND PELVIS WITHOUT CONTRAST REASON FOR EXAM: Female, 25 years old. Right flank pain. Constipation. RADIATION DOSAGE (If Supplied By Facility): CTDIvol = ( 5.26 ) mGy, DLP = ( 254.08 ) mGycm TECHNIQUE: Transaxial images were obtained from the dome of the diaphragm to the symphysis pubis without oral contrast, and without intravenous contrast. Sagittal and coronal images were reconstructed. Individualized dose optimization techniques were used for this CT. COMPARISON: Comparison is made with prior study dated 05/14/2020. FINDINGS: The visualized lung bases are unremarkable. The visualized portions of the heart are within normal limits. Normal liver. Normal gallbladder and extrahepatic biliary system. Normal spleen. Normal pancreas. Normal bilateral adrenal glands. Normal right kidney. Normal left kidney. Normal visualized stomach. Normal small intestine. Large amount of fecal material is seen throughout the colon. The appendix is visualized and appears normal. Normal abdominal aorta. Normal inferior vena cava. Normal retroperitoneum. Normal urinary bladder. There is a 1.8 cm dominant follicle in the left ovary. Normal abdominal wall. Normal osseous structures. CT/Abdomen/Pelvis without Cont IMPRESSION: Large amount of fecal material is seen throughout the colon. Electronically Signed: Fran Álvarez MD at 14:43 EDT , Service support ,
--- NOTE | 2020-10-30 13:57 | EDS_ITS ---
HPI History of Present Illness Chief Complaint: Abd Pain Narrative Narrative: 25-year-old female presenting with right flank pain which is acute in onset about 20 minutes prior to arrival. She states it feels like it is burning in her right side. She denies history of kidney stones. She does not think she is . She does have a history of hepatitis C which has been untreated. She does have a history of opioid abuse. Patient denies any symptoms prior to this. She does not have any urinary complaints or vaginal complaints. She has not vomited. [facility] Medical History Hepatitis C Home Medications NK 10/30/20 [History Last Taken Unknown] Allergy/AdvReac Type Severity Reaction Status Date / Time sertraline [From Zoloft] Allergy BUMPS IN Verified 10/30/20 13:14 MOUTH Social History Smoking Status: Current every day smoker tobacco type: cigarettes ROS ROS ED Constitutional Constitutional ED: Denies chills or fever(s) Eyes Eyes: Denies blurry vision or diplopia ENT ENT ED: Denies rhinorrhea or sore throat Cardiovascular Cardiovascular: Denies chest pain, palpitations or racing heartbeat Respiratory/Chest Respiratory/Chest: Denies cough, dyspnea or sputum Gastrointestinal Gastrointestinal: Reports abdominal pain and nausea; Denies constipation, diarrhea or melena Genitourinary Genitourinary ED: Reports other Details: Dark urine ; Denies dysuria or hematuria Musculoskeletal Musculoskeletal: Reports other Details: Right flank pain ; Denies arthralgias or myalgias Neurologic Neurologic: Denies headache(s) or paresthesias EXAM Physical Exam Const Vital Signs: 10/30/20 13:12 Temperature 98 F Temperature Source Temporal Pulse Rate 106 H Respiratory Rate 18 Blood Pressure 131/83 H Blood Pressure Mean 99 Pulse Ox 98 Oxygen Delivery Method Room Air Positive well nourished General Appearance ED: NAD HEENT Reports moist mucous membranes Negative for trauma Eyes PERRL and EOMs intact bilaterally General Eye ED: Negative for pale conjunctiva or scleral icterus Resp normal respiratory effort and clear to auscultation bilaterally Cardio regular rate and regular rhythm GI normal to inspection, nondistended, normoactive bowel sounds Back/Spine General Back: CVA tenderness right Neuro oriented x3 and CN's II-XII intact bilaterally Sensorium / Orientation: alert Psych mental status grossly normal Mood & Affect: tearful Skin no rashes or lesions noted MDM MDM MDM Narrative Medical decision making narrative: Patient presenting with right-sided flank pain. Abdomen is soft other than this. She does have some slight CVA tenderness on the right. Blood work shows no leukocytosis. Hemoglobin hematocrit are stable. Renal function electrolytes are normal. Patient's LFTs are elevated however she has known hep C. Patient states she has never sought treatment for this. She does not have a GI doctor. hCG is negative. Patient CT read is a large amount of fecal matter throughout the whole colon. After discussing with this patient she states she does have issues with constipation. I offered her magnesium citrate and she declined. At this point I feel patient is safe to be discharged home. She can return precautions. Impression: 1. Right flank pain 2. Constipation Lab Data Labs: Laboratory Results - last 24 hr 10/30/20 10/30/20 10/30/20 13:25 13:30 13:30 WBC 6.5 RBC 4.91 Hgb 13.9 Hct 42.9 MCV 87.4 MCH 28.3 MCHC 32.4 RDW Std Deviation 40.7 RDW Coeff of Elizabeth 12.8 Plt Count 231 MPV 9.2 Immature Gran % (Auto) 0.300 Neut % (Auto) 46.9 L Lymph % (Auto) 40.7 [place] % (Auto) 8.3 Eos % (Auto) 2.9 Baso % (Auto) 0.9 Absolute Neuts (auto) 3.0 Absolute Lymphs (auto) 2.64 Nucleated RBC % 0 Sodium 136 Potassium 4.5 Chloride 102 Carbon Dioxide 29.0 Anion Gap 5 BUN 16 Creatinine 0.91 Estim Creat Clear Calc 89.50 Est GFR (MDRD) Af Amer 98 Est GFR (MDRD) Non-Af 81 BUN/Creatinine Ratio 17.5 Glucose 90 Calcium 9.1 Total Bilirubin 0.30 AST 75 H ALT 164 H Alkaline Phosphatase 144 H Total Protein 8.5 H Albumin 3.9 Globulin 4.6 H Albumin/Globulin Ratio 0.8 L Lipase 83 Serum , Qual Urine Test Negative 10/30/20 13:30 WBC RBC Hgb Hct MCV MCH MCHC RDW Std Deviation RDW Coeff of Elizabeth Plt Count MPV Immature Gran % (Auto) Neut % (Auto) Lymph % (Auto) [place] % (Auto) Eos % (Auto) Baso % (Auto) Absolute Neuts (auto) Absolute Lymphs (auto) Nucleated RBC % Sodium Potassium Chloride Carbon Dioxide Anion Gap BUN Creatinine Estim Creat Clear Calc Est GFR (MDRD) Af Amer Est GFR (MDRD) Non-Af BUN/Creatinine Ratio Glucose Calcium Total Bilirubin AST ALT Alkaline Phosphatase Total Protein Albumin Globulin Albumin/Globulin Ratio Lipase Serum , Qual NEGATIVE Urine Test Radiography Diagnostic Testing: Radiology Impression Abdomen/Pelvis CT 10/30/20 13:56 IMPRESSION: Large amount of fecal material is seen throughout the colon. Electronically Signed: Fran Álvarez MD at 14:43 EDT , Service support , Discharge Plan Triage Chief Complaint: Abd Pain ED Provider: Ethan Gallardo Dx/Rx/DC Orders Instructions: ED Abdominal Pain Unkn Cause Fem, ED Constipation (Adult) Prescriptions: No Action NK RF: 0 Primary Care Provider: Wang Spaulding Referrals: Wang Spaulding MD [Primary Care Provider] - Disposition Disposition: Home, Self Care
[2020-10-30] MEDS: Ketorolac 15 MG/ML Vial IV (14:25)
[2020-10-30 15:12] VITALS: RESP 14
== END 2020-10-30 15:13 | disposition home or self-care (01) ==
PROVIDERS: Emergency Provider Student in an Organized Health Care Education/Training Program; PCP Family Medicine
DX: R10.9 Unspecified abdominal pain (principal); K59.00 Constipation, unspecified; B19.20 Unspecified viral hepatitis C without hepatic coma; F17.210 Nicotine dependence, cigarettes, uncomplicated; Z79.899 Other long term (current) drug therapy
CPT/HCPCS: 74176; 80053; 81025; 83690; 84703; 85025; 99283; J7030; J2405

== ENCOUNTER 2021-06-16 08:11 | Outpatient (CLI) | payer MEDICAID, SELFPAY ==
--- NOTE | 2021-06-16 08:13 | US_ITS ---
STUDY: ABDOMINAL ULTRASOUND REASON FOR EXAM: Female, 26 years old. ELEVATED TRANSAMINASE LEVEL TECHNIQUE: Transabdominal ultrasound was performed with real-time and static mancini scale imaging. TECHNICAL QUALITY: Adequate. COMPARISON: None. FINDINGS: Liver: The liver measures 16.6 cm. There is increased echogenicity consistent with fatty infiltration. The bile ducts are within normal limits. There is hepatic color flow. The direction of portal flow is hepatopetal. There is no demonstrated mass lesion. Gallbladder: Normal distended gallbladder. The gallbladder wall measures 2 mm. There is a negative sonographic Yates''s sign. There is no pericholecystic fluid. There are no gallstones. Common Bile Duct (C.B.D.): The common bile duct is mildly dilated and measures 7 mm. Pancreas: Normal size of the head, body and tail of the pancreas. There is normal echogenicity of the pancreas. There is no demonstrated pancreatic mass or cyst. Spleen: There is splenomegaly. The spleen measures 14.5 cm x 5.6 cm x 3.9 cm. Right Kidney: Normal size of the right kidney. The right kidney measures 11.1 cm x 5.2 cm x 4.8 cm. Normal renal cortex. The right cortex measures 1.3 cm. There is no demonstrated renal mass or cyst. There is no right hydronephrosis. Left Kidney: Normal size of the left kidney. The left kidney measures 10.1 cm x 5.1 cm x 4.9 cm. Normal renal cortex. The left cortex measures 1.8 cm. There is no demonstrated renal mass or cyst. There is no left hydronephrosis. Aorta: Unremarkable I.V.C.: The IVC is patent. There is no ascites. US/Abdomen Complete IMPRESSION: Mild degree of fatty infiltration of the liver. Splenomegaly. Electronically Signed: Fran Álvarez MD at 12:40 EST ,
== END 2021-06-16 23:59 | disposition home or self-care (01) ==
PROVIDERS: PCP Family Medicine; Referring Provider Family Medicine; Visit Provider Family Medicine
DX: R74.01 Elevation of levels of liver transaminase levels (principal)
CPT/HCPCS: 76700

== ENCOUNTER 2022-12-13 21:39 | Inpatient (IN) | payer MEDICAID, SELFPAY ==
[2022-12-13 21:40] VITALS: BP 149/103; PULSE 103; RESP 18; TEMP 36.1; O2SAT 100; BMI 25.8
--- NOTE | 2022-12-13 22:06 | EX.ED.DYSGE1 ---
HPI History of Present Illness Chief Complaint: Substance Abuse Informant: patient Narrative Narrative: 27-year-old female presented to the emergency room with a chief complaint of seeking detox. Patient states that for about 2-1/2 to 3 years she has been steadily injecting fentanyl. She was arrested and spent time in [facility]. She was released on 22 November. The last time she did fentanyl was in October. Since getting out she has been using Xanax/benzos as well as cannabis and intermittent meth use. She states she is only used meth twice this month. She has upcoming court cases for possession in December and thought that it would be best to seek detox now before her court cases. She came in last night but the hospital was busy. So tonight at 2200 hrs. was more convenient so she came in this evening. After the initial interview the patient asked to speak to me without the presence of her mother. She states that she is using heroin every day and uses benzodiazepines to bridge in between uses. She notes that she lost her sister who succumbed to complications of abuse last year. [facility] Medical History Hepatitis C Home Medications NK 10/30/20 [History Last Taken Unknown] Allergy/AdvReac Type Severity Reaction Status Date / Time sertraline [From Zoloft] Allergy BUMPS IN Verified 12/13/22 21:42 MOUTH Social History Smoking Status: Current every day smoker tobacco type: cigarettes ROS ROS ED Constitutional Constitutional ED: Denies chills or weight loss Eyes Eyes: Denies change in vision or diplopia ENT ENT ED: Denies ear pain, rhinorrhea or sore throat Cardiovascular Cardiovascular: Denies chest pain, orthopnea, palpitations or racing heartbeat Respiratory/Chest Respiratory/Chest: Denies cough, dyspnea or orthopnea Gastrointestinal Gastrointestinal: Reports diarrhea; Denies abdominal pain, nausea or vomiting Genitourinary Genitourinary ED: Denies dysuria, hematuria or urinary frequency Musculoskeletal Musculoskeletal: Denies arthralgias or myalgias Integumentary Reports other Details: Chronic healing wounds of the extremities. No active infections noted. Edema of the lower legs ; Denies abscess or rash Neurologic Neurologic: Denies headache(s) or weakness Psychiatric Psychiatric: Denies anxiety, depression, suicidal ideation or suicidal thoughts Endocrine Endocrinology: Denies polydipsia, polyphagia or polyuria Allergic/Immunologic Allergic/Immunologic ED: Denies mouth swelling, tongue swelling or urticaria EXAM Physical Exam Const Vital Signs: 12/13/22 21:40 Temperature 97 F L Temperature Source Temporal Pulse Rate 103 H Respiratory Rate 18 Blood Pressure 149/103 H Blood Pressure Mean 118 Pulse Ox 100 Oxygen Delivery Method Room Air Positive well nourished and well developed General Appearance ED: well developed HEENT Reports normocephalic, head/scalp atraumatic and moist mucous membranes Eyes PERRL and EOMs intact bilaterally Neck no lymphadenopathy, supple and no JVD Resp normal respiratory effort and clear to auscultation bilaterally Cardio regular rate, regular rhythm and no murmurs GI normal to inspection, nondistended, normoactive bowel sounds and non-tender Palpation: soft Back/Spine no CVA tenderness and normal ROM Extremity normal to inspection General Extremety ED: Yes edema General Extremity: edema bilateral lower extremity Neuro oriented x3 and CN's II-XII intact bilaterally Sensorium / Orientation: alert Motor Exam: strength 5/5 throughout Psych mental status grossly normal Mood & Affect: Negative for depressed or tearful Skin no rashes or lesions noted and no wounds MDM MDM MDM Narrative Medical decision making narrative: ED addiction labs ordered. Patient is not . White count 6.3. Urine toxicology positive for amphetamines ecstasy benzodiazepines and cannabinoids. I will speak with the hospitalist regarding admission. Lab Data Attestation: I reviewed the patient's lab results. Labs: Laboratory Results - last 24 hr 12/13/22 12/13/22 22:10 23:19 WBC 6.3 RBC 4.70 Hgb 13.1 Hct 39.9 MCV 84.9 MCH 27.9 MCHC 32.8 RDW Std Deviation 41.8 RDW Coeff of Elizabeth 13.3 Plt Count 186 MPV 9.3 Immature Gran % (Auto) 0.200 Neut % (Auto) 42.6 L Lymph % (Auto) 46.7 [place] % (Auto) 7.9 Eos % (Auto) 2.1 Baso % (Auto) 0.5 Absolute Neuts (auto) 2.7 Absolute Lymphs (auto) 2.94 Nucleated RBC % 0 Serum , Qual NEGATIVE Urine Opiates Screen NEGATIVE Urine Methadone Screen NEGATIVE Ur Barbiturates Screen NEGATIVE Ur Phencyclidine Scrn NEGATIVE Ur Amphetamines Screen POSITIVE H MDMA (Ecstasy) Screen POSITIVE H U Benzodiazepines Scrn POSITIVE H Urine Cocaine Screen NEGATIVE U Cannabinoids Screen POSITIVE H Ur Drug Screen Comment Discharge Plan Dx/Rx/DC Orders Clinical Impression: Benzodiazepine abuse, Opiate abuse, continuous Disposition Disposition: Acute Care Hospital [facility]
[2022-12-13 22:52] LABS: Amphetamine Urine VISTA POSITIVE (<1000 ng/mL); Barbiturate Urine VISTA NEGATIVE (< 200 ng/mL); Benzodiazepine Urine VISTA POSITIVE (< 200 ng/mL); Cocaine Urine VISTA NEGATIVE (< 300 ng/mL); Ecstacy Urine VISTA POSITIVE (< 500 ng/mL); Methadone Urine VISTA NEGATIVE (< 300 ng/mL); PCP Urine VISTA NEGATIVE (< 25 ng/mL); THC Urine VISTA POSITIVE (< 50 ng/mL); Vista UDS pH Range 5
[2022-12-13 23:24] LABS: Absolute Lymphocyte Count 2.94 X10^3/uL (0.83-4.51); Absolute Neutrophil Count 2.7 X10^3/uL (2.0-7.7); Basophil# 0.03 X10^3/uL; Basophil% 0.5 % (0-1); Eosinophil# 0.13 X10^3/uL; Eosinophils% 2.1 % (0-5); Hematocrit 39.9 % (37-47); Hemoglobin 13.1 g/dL (12.0-15.0); Lymphocyte # 2.94 X10^3/ul (0.83-4.51); Lymphocyte % 46.7 % (19-41); Mean Corp Hgb Conc 32.8 g/dL (32-36); Mean Corpuscular Hgb 27.9 pg (27.0-32.0); Mean Corpuscular Volume 84.9 fL (81-99); Mean Platelet Vol. 9.3 fl (6.2-12.0); Monocyte% 7.9 % (0-10); NRBC Flagged by Analyzer 0 % (0-5); Neutrophil # 2.69 X10^3/uL (2.7-7.7); Neutrophil % 42.6 % (47-70); Platelet Count 186 K/mm3 (150-450); RBC Distribution Width CV 13.3 % (11.6-14.6); RBC Distribution Width SD 41.8 fl (35.1-43.9); White Blood Count 6.3 K/mm3 (4.4-11.0)
--- NOTE | 2022-12-13 23:41 | PCM.HP.STD ---
HPI - General General Date of Admission: 12/13/22 Date of Service: 12/14/22 Chief Complaint: Detox HPI Narrative ROQUE LIND, is a 27 F with a significant history of IV and polysubstance abuse who presents to the emergency department for help with detoxification. Patient has been using multiple substances since 2015. She was clean for 2 years and then began using again 3 years ago. He uses heroin and meth; cocaine and benzodiazepine. His drug of choice is actually heroin. With heroin he uses 2 g/day. He shoots it. Last time he used was about 4-1/2 hours prior to presentation. He shoots both meth and heroin. Also she uses about 0.2 g of meth per day. Further, he uses cocaine. He takes cocaine orally. Also she has been using about 4 g of benzodiazepines on some days. She uses it about 3-4 times per week. She reports of early symptoms of withdrawal which is bilateral leg pain. Patient is hoping to go to [facility] via [facility] after discharge. She has a court case pending before her. Also she is motivated to go through detox because of by her sister who had a traumatic complications of drug use. Patient was in the hospital a day a before presentation but could not be admitted since there were no beds for detoxification. Initially patient could not tell ED doctor the exact reasons of her presentation because her mother was around. When her mother left she called to talk to emergency department doctor privately and then divulge the reason why she was at the ED. [facility] Medical History (Updated 12/14/22 @ 00:[address] Jorje Carlson MD) Hepatitis C Home Medications NK 10/30/20 [History Last Taken Unknown] Allergy/AdvReac Type Severity Reaction Status Date / Time sertraline [From Zoloft] Allergy BUMPS IN Verified 12/13/22 21:42 MOUTH Family History (Updated 12/14/22 @ 00:[address] Jorje Carlson MD) Other Anxiety and depression CVA (cerebral vascular accident) Diabetes Heart disease Hypertension Thyroid disorder Surgical History (Updated 12/14/22 @ 00:[address] Jorje Carlson MD) History of tonsillectomy Social History (Updated 12/14/22 @ 00:[address] Jorje Carlson MD) Smoking Status: Current every day smoker tobacco type: cigarettes substance use type: marijuana ROS ROS Narrative Pertinent positives and pertinent negatives as noted in HPI. All other systems were reviewed and are negative Vital Signs Vital Signs Vital Signs: 12/13/22 21:40 Temperature 97 F L Temperature Source Temporal Pulse Rate 103 H Respiratory Rate 18 Blood Pressure 149/103 H Blood Pressure Mean 118 Pulse Ox 100 Oxygen Delivery Method Room Air Weight Weight: 77.111 kg Body Mass Index (BMI) 25.8 Physical Exam Narrative Physical exam: General: Well-nourished, well-developed. Head: Normocephalic, atraumatic, no tenderness Eyes: Vision is grossly intact. EOMI ENT, no trauma, moist mucous membranes, no rhinorrhea Neck: Nontender, No thyromegaly. CVS: Regular rate and rhythm. S1-S2 present. No murmur, gallop or rub. Respiratory : clear to auscultation bilaterally, chest wall nontender Abdomen: Soft, nontender, nondistended, normal bowel sounds, no masses : Deferred Back: Nontender, no CVA tenderness, no midline spinal tenderness, deformities, step-offs Extremities:Edema bilateral feet. Needle track dumont on bilateral arms and bilateral legs. Skin: Normal color, no trauma, abrasions Neuro: Alert, oriented, cranial nerves II through XII grossly intact. Psychiatry: Normal mood. Normal affect. Not depressed. Not anxious. Results Lab / Micro Data 12/13/22 23:19 12/13/22 23:19 Labs: Laboratory Results - last 24 hr 12/13/22 22:10: Urine Opiates Screen NEGATIVE, Urine Methadone Screen NEGATIVE, Ur Barbiturates Screen NEGATIVE, Ur Phencyclidine Scrn NEGATIVE, Ur Amphetamines Screen POSITIVE H, MDMA (Ecstasy) Screen POSITIVE H, U Benzodiazepines Scrn POSITIVE H, Urine Cocaine Screen NEGATIVE, U Cannabinoids Screen POSITIVE H, Ur Drug Screen Comment 12/13/22 23:19: WBC 6.3, RBC 4.70, Hgb 13.1, Hct 39.9, MCV 84.9, MCH 27.9, MCHC 32.8, RDW Std Deviation 41.8, RDW Coeff of Elizabeth 13.3, Plt Count 186, MPV 9.3, Immature Gran % (Auto) 0.200, Neut % (Auto) 42.6 L, Lymph % (Auto) 46.7 H, Blount % (Auto) 7.9, Eos % (Auto) 2.1, Baso % (Auto) 0.5, Absolute Neuts (auto) 2.7, Absolute Lymphs (auto) 2.94, Nucleated RBC % 0 Assessment & Plan Assessment/Plan (1) Opiate abuse, continuous: (2) Benzodiazepine abuse: (3) Heroin abuse: (4) Desire for detoxification: PLAN: Plan Opioid dependence and withdrawal Patient be started on Subutex and other adjunctive medications: Gabapentin as needed; dicyclomine as needed; Vistaril as needed; methocarbamol as needed; clonidine as needed; Imodium as needed; trazodone as needed and Zofran as needed. Monitor COWS and CINA score Tobacco abuse Counseled Nicotine patch prescribed. Meth abuse Counseled Cocaine abuse Cancer Avoid beta-blockers. Benzodiazepine abuse The patient uses about 3-4 times a week. Will monitor for now. DVT prophylaxis Low risk Encourage to ambulate Patient is sleeping time spent in the patient's overall evaluation,decision-making process, review of diagnostic data, adjustment of management, discussion with other providers, nursing nursing and ancillary staff involved in patient's care documentation, 45 minutes. Charges/Coding Visit Charges Inpatient E&M: 27610 Init Hosp L2
[2022-12-13 23:42] LABS: Internal QC Validated? YES +Cl - CLEAR BKGD; Pregnancy, Serum, hCG Quali. NEGATIVE Negative
[2022-12-13 23:54] LABS: AST(SGOT) 74 U/L (15-37); Alanine Aminotransfer ALT/SGPT 171 U/L (13-56); Albumin, Serum 3.7 g/dL (3.2-5.0); Alcohol, Blood (Medical)-Serum < 3.0 mg/dL; Alkaline Phosphatase 111 U/L (45-117); Anion Gap 6 (5-15); BUN 8 mg/dL (7-18); BUN/Creat Ratio 9.9 RATIO (10-20); Calcium,Total 8.8 mg/dL (8.5-10.1); Chloride 104 mmol/L (98-107); Creatinine, Serum 0.81 mg/dL (0.55-1.02); EST Glomerular Filtration Rate 91 mL/min (>60); Est Glom Filt Rate - Afr Amer 110 mL/min (>60); Globulin 3.7 g/dL (2.2-4.2); Glucose 99 mg/dL (74-106); Potassium 3.9 mmol/L (3.5-5.1); Protein, Total 7.4 g/dL (6.4-8.2); Sodium Level 139 mmol/L (136-145)
[2022-12-14 00:26] VITALS: BP 122/83; PULSE 89; RESP 18; TEMP 36.2; O2SAT 96
[2022-12-14 00:37] VITALS: BMI 25.5
[2022-12-14 00:43] VITALS: BP 118/81; PULSE 72; RESP 16; TEMP 36.6; O2SAT 98
[2022-12-14] MEDS: traZODone 100 MG Tablet PO (01:16)
[2022-12-14] MEDS: Methocarbamol 750 MG Tablet 1500 MG PO (01:16)
[2022-12-14 05:56] VITALS: BP 114/75; PULSE 83; RESP 18; TEMP 36.4; O2SAT 97
[2022-12-14 09:00] VITALS: BP 122/85; PULSE 90; RESP 16; TEMP 36.6; O2SAT 98
[2022-12-14] MEDS: Ibuprofen 600 MG Tablet PO ×2 (09:19→15:09)
--- NOTE | 2022-12-14 10:16 | ADDICTION ---
Addendum entered by Elaine Hinton 12/14/22 10:38: [facility] is closed on Monday. Pt will admit on Monday. Original Note: This law writer met with PT to conduct ASAM, MSE, AUDIT, DUDIT assessments and to plan for d/c. PT A+Ox4 and participated actively. All assessments completed and placed in PT's chart. PT plans to f/u with [facility] at [facility] for follow-up in patient treatment services on Monday. [facility] will transport to treatment.
--- NOTE | 2022-12-14 13:46 | PCM.HOSP.N ---
Hospitalist Note Pt here for opioid detox but also reported using 2-3 bars a day, clarified that these were xanax and she believes they are 2mg. Due to not wanting pt to seize will start her on phenobarb taper as well however given her concurrent use of subutex suspect she can start at 64.8 q4hr of phenobarbital and that will be sufficient. Pt also reports dental pain and poor dentition, seems consistent with dental infection, will start augmentin
[2022-12-14] MEDS: Acetaminophen 325 MG Tablet 650 MG PO (14:47)
[2022-12-14 14:50] VITALS: BP 106/63; PULSE 85; RESP 16; TEMP 36.6; O2SAT 98
[2022-12-14] MEDS: Phenobarbital 32.4 MG Tablet PO ×2 (18:18→20:18)
[2022-12-14 20:14] VITALS: BP 113/74; PULSE 80; RESP 14; TEMP 36.9; O2SAT 98
[2022-12-14] MEDS: Amox/Clavulanate 875 MG Tablet PO (20:19)
[2022-12-15] MEDS: Phenobarbital 32.4 MG Tablet PO ×6 (00:43→21:36)
[2022-12-15 02:15] VITALS: BP 116/84; PULSE 78; RESP 14; TEMP 36.6; O2SAT 98
[2022-12-15] MEDS: Ibuprofen 600 MG Tablet PO ×3 (04:43→21:46)
[2022-12-15] MEDS: Amox/Clavulanate 875 MG Tablet PO ×2 (08:16→21:36)
[2022-12-15] MEDS: Acetaminophen 325 MG Tablet 650 MG PO ×2 (08:26→21:46)
[2022-12-15 09:03] VITALS: BP 115/80; PULSE 89; RESP 16; TEMP 36.5; O2SAT 99
--- NOTE | 2022-12-15 10:32 | ADDICTION ---
[facility] is able to admit on Monday. Will need hospital van transport to [facility].
--- NOTE | 2022-12-15 10:56 | PN.HOSP_ITS ---
Reason for Visit Reason for Visit: Diagnoses Opioid abuse, uncomplicated (12/13/22) Sedative, hypnotic or anxiolytic abuse, uncomplicated (12/13/22) Subjective Subjective Still not feeling well today, not specifically she reports just generally fe eling unwell with her withdrawal Objective Data Objective Data Vital Signs: Vital Signs Temp Pulse Resp BP Pulse Ox O2 Del Method 97.7 F L 89 16 115/80 99 Room Air 12/15/22 09:03 12/15/22 09:03 12/15/22 09:03 12/15/22 09:03 12/15/22 09:03 12/15/22 09:03 Oxygen Delivery Method Room Air Weight: 76.2 kg Body Mass Index (BMI) 25.5 Intake & Output: Intake and Output for Last 24 Hours 12/13/22 12/14/22 12/15/22 23:59 23:59 23:59 Intake Total 470 / 470 Balance 470 / 470 Lab / Micro Data 12/13/22 23:19 12/13/22 23:19 Physical Exam Narrative General: Resting in bed, appears uncomfortable HEENT: Atraumatic, normocephalic Eyes: extraocular movements grossly intact Neck: Supple Respiratory: normal respiratory effort Cardiovascular: no edema appreciated GI: nondistended Extremities: Moving all extremities Neuro: No overt focal neurological deficits Psych: Cooperative Assessment & Plan Assessment/Plan (1) Opiate abuse, continuous: (2) Benzodiazepine abuse: (3) Heroin abuse: (4) Desire for detoxification: PLAN: Plan #Opioid dependence and withdrawal Patient be started on Subutex and other adjunctive medications: Gabapentin as needed; dicyclomine as needed; Vistaril as needed; methocarbamol as needed; clon idine as needed; Imodium as needed; trazodone as needed and Zofran as needed. Monitor COWS and CINA score -12/15: Patient to go to inpatient rehab on Monday #Benzodiazepine abuse -Started on a lower dose phenobarb taper 12/14 after she revealed taking 2-3 Xanax bars daily for several years, will continue this, plans for inpatient rehab #Dental pain -With poor dentition and concern for dental infection -We will need to follow with a dentist on outpatient basis, in meantime will give course of Augmentin Tobacco abuse Counseled Nicotine patch prescribed. Meth abuse Counseled Cocaine abuse Cancer Avoid beta-blockers. DVT prophylaxis Low risk Encourage to ambulate Charges/Coding Visit Charges Inpatient E&M: 08046 Subs Hosp L1
[2022-12-15] MEDS: Gabapentin 300 MG Capsule PO ×2 (11:42→21:47)
[2022-12-15 11:49] VITALS: BP 104/77; PULSE 84; RESP 16; TEMP 36.8; O2SAT 99
[2022-12-15 15:08] VITALS: BP 104/67; PULSE 87; RESP 16; TEMP 36.6; O2SAT 99
[2022-12-15] MEDS: traZODone 100 MG Tablet PO (21:36)
[2022-12-15] MEDS: Methocarbamol 750 MG Tablet 1500 MG PO (21:36)
[2022-12-15] MEDS: Dicyclomine 10 MG Capsule 20 MG PO (21:47)
[2022-12-15 22:01] VITALS: BP 114/76; PULSE 78; RESP 16; TEMP 36.4; O2SAT 97
[2022-12-16] MEDS: Phenobarbital 32.4 MG Tablet PO ×4 (03:38→20:25)
[2022-12-16] MEDS: Methocarbamol 750 MG Tablet 1500 MG PO ×2 (03:43→20:24)
[2022-12-16] MEDS: Ibuprofen 600 MG Tablet PO ×2 (03:43→20:24)
[2022-12-16] MEDS: Dicyclomine 10 MG Capsule 20 MG PO (03:43)
[2022-12-16] MEDS: Acetaminophen 325 MG Tablet 650 MG PO ×2 (03:44→16:12)
[2022-12-16 03:45] VITALS: BP 97/56; PULSE 80; RESP 16; TEMP 36.6; O2SAT 96
[2022-12-16] MEDS: Amox/Clavulanate 875 MG Tablet PO ×2 (08:25→20:24)
[2022-12-16] MEDS: Gabapentin 300 MG Capsule PO ×2 (08:28→20:24)
[2022-12-16 08:55] VITALS: BP 102/63; PULSE 74; RESP 16; TEMP 36.4; O2SAT 98
[2022-12-16 13:53] VITALS: BP 104/67; PULSE 87; RESP 16; TEMP 37.1; O2SAT 97
--- NOTE | 2022-12-16 15:57 | CASEMGMT ---
Update from addiction therapist, pt to dc on Monday to residential and 180 to provide transportation.
[2022-12-16] MEDS: Buprenorphine HCl 2 MG TAB.SUBL 4 MG SL (16:19)
--- NOTE | 2022-12-16 17:19 | PCM.PN.HOSP ---
Reason for Visit Reason for Visit: Diagnoses Opioid abuse, uncomplicated (12/13/22) Sedative, hypnotic or anxiolytic abuse, uncomplicated (12/13/22) Subjective Subjective Patient has not yet triggered the buprenorphine taper and reports feeling bad at time of exam and just aching everywhere Objective Data Objective Data Vital Signs: Vital Signs Temp Pulse Resp BP Pulse Ox O2 Del Method 98.8 F 87 16 104/67 97 Room Air 12/16/22 13:53 12/16/22 13:53 12/16/22 13:53 12/16/22 13:53 12/16/22 13:53 12/16/22 13:53 Oxygen Delivery Method Room Air Weight: 76.2 kg Body Mass Index (BMI) 25.5 Intake & Output: Intake and Output for Last 24 Hours 12/14/22 12/15/22 12/16/22 23:59 23:59 23:59 Intake Total 1520 / 1520 Balance 1520 / 1520 Lab / Micro Data 12/13/22 23:19 12/13/22 23:19 Physical Exam Narrative General: Resting in bed, appears uncomfortable HEENT: Atraumatic, normocephalic Eyes: extraocular movements grossly intact Neck: Supple Respiratory: normal respiratory effort Cardiovascular: no edema appreciated GI: nondistended Extremities: Moving all extremities Neuro: No overt focal neurological deficits Psych: Cooperative Assessment & Plan Assessment/Plan (1) Opiate abuse, continuous: (2) Benzodiazepine abuse: (3) Heroin abuse: (4) Desire for detoxification: PLAN: Plan #Opioid dependence and withdrawal Patient be started on Subutex and other adjunctive medications: Gabapentin as needed; dicyclomine as needed; Vistaril as needed; methocarbamol as needed; clonidine as needed; Imodium as needed; trazodone as needed and Zofran as needed. Monitor COWS and CINA score -12/15: Patient to go to inpatient rehab on Monday -12/16: Patient triggered Subutex taper but initially refused due to being worried about precipitating withdrawal, Subutex taper initiated this evening however #Benzodiazepine abuse -Started on a lower dose phenobarb taper 12/14 after she revealed taking 2-3 Xanax bars daily for several years, will continue this, plans for inpatient rehab #Dental pain -With poor dentition and concern for dental infection -We will need to follow with a dentist on outpatient basis, in meantime will give course of Augmentin Tobacco abuse Counseled Nicotine patch prescribed. Meth abuse Counseled Cocaine abuse Cancer Avoid beta-blockers. DVT prophylaxis Low risk Encourage to ambulate Charges/Coding Visit Charges Inpatient E&M: 30560 Subs Hosp L1
[2022-12-16] MEDS: traZODone 100 MG Tablet PO (20:24)
[2022-12-16 20:28] VITALS: BP 110/72; PULSE 80; RESP 16; TEMP 36.9; O2SAT 98
[2022-12-17] MEDS: Buprenorphine HCl 2 MG TAB.SUBL 4 MG SL ×2 (00:26→09:23)
[2022-12-17] MEDS: Acetaminophen 325 MG Tablet 650 MG PO (04:11)
[2022-12-17] MEDS: Methocarbamol 750 MG Tablet 1500 MG PO (04:11)
[2022-12-17] MEDS: Gabapentin 300 MG Capsule PO (04:11)
[2022-12-17] MEDS: Phenobarbital 32.4 MG Tablet PO ×2 (04:11→10:18)
[2022-12-17 04:26] VITALS: BP 105/68; PULSE 83; RESP 16; TEMP 36.6; O2SAT 96
--- NOTE | 2022-12-17 08:31 | PCM.PN.HOSP ---
Reason for Visit Reason for Visit: Diagnoses Opioid abuse, uncomplicated (12/13/22) Sedative, hypnotic or anxiolytic abuse, uncomplicated (12/13/22) Objective Data Objective Data Vital Signs: Vital Signs Temp Pulse Resp BP Pulse Ox O2 Del Method 98 F 83 16 105/68 96 Room Air 12/17/22 04:26 12/17/22 04:26 12/17/22 04:26 12/17/22 04:26 12/17/22 04:26 12/17/22 04:26 Oxygen Delivery Method Room Air Weight: 76.2 kg Body Mass Index (BMI) 25.5 Intake & Output: Intake and Output for Last 24 Hours 12/15/22 12/16/22 12/17/22 23:59 23:59 23:59 Intake Total 1520 / 1520 Balance 1520 / 1520 Lab / Micro Data 12/13/22 23:19 12/13/22 23:19 Assessment & Plan Assessment/Plan (1) Opiate abuse, continuous: (2) Benzodiazepine abuse: (3) Heroin abuse: (4) Desire for detoxification: PLAN: Plan #Opioid dependence and withdrawal Patient be started on Subutex and other adjunctive medications: Gabapentin as needed; dicyclomine as needed; Vistaril as needed; methocarbamol as needed; clonidine as needed; Imodium as needed; trazodone as needed and Zofran as needed. Monitor COWS and CINA score -12/15: Patient to go to inpatient rehab on Monday -12/16: Patient triggered Subutex taper but initially refused due to being worried about precipitating withdrawal, Subutex taper initiated this evening however -12/17: Continue taper, pt will be done day of d/c Monday #Benzodiazepine abuse -Started on a lower dose phenobarb taper 12/14 after she revealed taking 2-3 Xanax bars daily for several years, will continue this, plans for inpatient rehab -12/17: #Dental pain -With poor dentition and concern for dental infection -We will need to follow with a dentist on outpatient basis, in meantime will give course of Augmentin -12/17: Continue management Tobacco abuse Counseled Nicotine patch prescribed. Meth abuse Counseled Cocaine abuse Cancer Avoid beta-blockers. DVT prophylaxis Low risk Encourage to ambulate
[2022-12-17] MEDS: Amox/Clavulanate 875 MG Tablet PO (09:24)
[2022-12-17 09:32] VITALS: BP 107/67; PULSE 84; RESP 16; TEMP 36.7; O2SAT 99
--- NOTE | 2022-12-17 14:34 | PCM.DC.SUM ---
Providers Date of Admission: 12/13/22 Date of Discharge: 12/17/22 Primary Care Physician: Dr. Wang Spaulding MD Reason For Visit: DESIRE FOR OPIOID DETOXIFICATION Diagnosis Discharge Diagnosis (1) Opiate abuse, continuous: Status: Acute Code(s): F11.10 - Opioid abuse, uncomplicated (2) Benzodiazepine abuse: Status: Acute Code(s): F13.10 - Sedative, hypnotic or anxiolytic abuse, uncomplicated (3) Heroin abuse: Status: Acute Code(s): F11.10 - Opioid abuse, uncomplicated (4) Desire for detoxification: Status: Acute Plan #Opioid dependence and withdrawal #Benzodiazepine abuse #Dental pain Tobacco abuse Meth abuse Cocaine abuse Medications at Discharge Home Medications NK 10/30/20 Hospital Course Summary of Care Provided Hospital Course: Patient admitted for opioid detox with plans for residential placement on Monday, due to her concomitant benzo use she was also placed on a lower dose phenobarb taper in addition to Subutex taper. Unfortunately patient chose to leave AGAINST MEDICAL ADVICE prior to completing her course and going to inpatient rehab Weight / BMI Weight Weight: 76.2 kg Body Mass Index (BMI) 25.5 ABG / Lab / Microbiology Data 12/13/22 23:19 12/13/22 23:19 Meaningful Use Info Meaningful Use Diagnoses (Choose all that apply): None applicable Discharge Plan Admission Admit Date/Time: 12/13/22 23:42 Attending Provider: Stephania Garcia Primary Care Provider: Wang Spaulding Consulting Providers: Jorje Carlson Discharge Orders/Prescriptions Prescriptions: No Action NK Referrals / Follow Up: Wang Spaulding MD [Primary Care Provider] - Disposition Disposition (needs filled in before D/C Order can be placed): Against Medical Advice
--- NOTE | 2022-12-18 05:08 | ED.RN ---
father called in to check to see if patient was still admitted. he keeps receiving phone calls from patient and wanted to check status on her. update given at this time
== END 2022-12-17 12:00 | disposition left against medical advice (07) | DRG 770 ==
LOC: ED 23:11 → MS3 12-14 00:13
PROVIDERS: Admitting Provider Hospitalist; Emergency Provider Emergency Medicine; PCP Family Medicine; Visit Provider Internal Medicine
DX: F11.23 Opioid dependence with withdrawal (principal); F13.10 Sedative, hypnotic or anxiolytic abuse, uncomplicated; F14.10 Cocaine abuse, uncomplicated; F15.10 Other stimulant abuse, uncomplicated; F17.210 Nicotine dependence, cigarettes, uncomplicated; K04.7 Periapical abscess without sinus
CPT/HCPCS: 36415; 80053; 80307; 82077; 84703; 85025; 99283; 99406; A4216

== ENCOUNTER 2023-01-14 21:44 | Inpatient (IN) | payer MEDICAID, SELFPAY ==
[2023-01-14 21:44] VITALS: BP 125/75; PULSE 95; RESP 16; TEMP 36.3; O2SAT 97; BMI 25.9
[2023-01-14 22:33] LABS: Absolute Lymphocyte Count 2.85 X10^3/uL (0.83-4.51); Absolute Neutrophil Count 2.1 X10^3/uL (2.0-7.7); Basophil# 0.03 X10^3/uL; Basophil% 0.5 % (0-1); Eosinophil# 0.12 X10^3/uL; Eosinophils% 2.2 % (0-5); Hematocrit 33.9 % (37-47); Hemoglobin 11.4 g/dL (12.0-15.0); Lymphocyte # 2.85 X10^3/ul (0.83-4.51); Lymphocyte % 52.1 % (19-41); Mean Corp Hgb Conc 33.6 g/dL (32-36); Mean Corpuscular Hgb 28.4 pg (27.0-32.0); Mean Corpuscular Volume 84.3 fL (81-99); Mean Platelet Vol. 9.4 fl (6.2-12.0); Monocyte% 7.3 % (0-10); NRBC Flagged by Analyzer 0 % (0-5); Neutrophil # 2.06 X10^3/uL (2.7-7.7); Neutrophil % 37.7 % (47-70); Platelet Count 178 K/mm3 (150-450); RBC Distribution Width CV 13.7 % (11.6-14.6); RBC Distribution Width SD 42.8 fl (35.1-43.9); Red Blood Count 4.02 M/mm3 (4.2-5.4); White Blood Count 5.5 K/mm3 (4.4-11.0)
[2023-01-14 22:43] LABS: Amphetamine Urine VISTA POSITIVE (<1000 ng/mL); Barbiturate Urine VISTA NEGATIVE (< 200 ng/mL); Benzodiazepine Urine VISTA NEGATIVE (< 200 ng/mL); Cocaine Urine VISTA NEGATIVE (< 300 ng/mL); Ecstacy Urine VISTA POSITIVE (< 500 ng/mL); Methadone Urine VISTA NEGATIVE (< 300 ng/mL); PCP Urine VISTA NEGATIVE (< 25 ng/mL); THC Urine VISTA POSITIVE (< 50 ng/mL); Vista UDS pH Range 4
[2023-01-14 22:49] LABS: Alcohol, Blood (Medical)-Serum < 3.0 mg/dL
[2023-01-14 22:55] LABS: AST(SGOT) 78 U/L (15-37); Alanine Aminotransfer ALT/SGPT 136 U/L (13-56); Albumin, Serum 3.5 g/dL (3.2-5.0); Alkaline Phosphatase 87 U/L (45-117); Anion Gap 4 (5-15); BUN 12 mg/dL (7-18); BUN/Creat Ratio 14.4 RATIO (10-20); Calcium,Total 8.4 mg/dL (8.5-10.1); Chloride 109 mmol/L (98-107); Creatinine, Serum 0.83 mg/dL (0.55-1.02); EST Glomerular Filtration Rate 88 mL/min (>60); Est Glom Filt Rate - Afr Amer 107 mL/min (>60); Estimated Creatinine Clearance 100.76 ml/min; Globulin 3.4 g/dL (2.2-4.2); Glucose 123 mg/dL (74-106); Potassium 3.7 mmol/L (3.5-5.1); Protein, Total 6.9 g/dL (6.4-8.2); Sodium Level 140 mmol/L (136-145)
[2023-01-14 22:57] LABS: Internal QC Validated? YES +Cl - CLEAR BKGD; Pregnancy, Serum, hCG Quali. NEGATIVE Negative
--- NOTE | 2023-01-14 23:08 | EX.ED.SAOD ---
HPI History of Present Illness Chief Complaint: Substance Abuse Informant: patient Narrative Narrative: Patient presents requesting detox from heroin. She is been shooting up heroin for several years. She was admitted 1 month ago but did relapse when she left. Last use of heroin was at 2 PM this afternoon. She states that she is not feeling significant withdrawal effects yet, but knows that she needs to go through a detox program again and get clean. PFSH PFS Medical History Desire for detoxification Hepatitis C Home Medications NK 10/30/20 [History Last Taken Unknown] Allergy/AdvReac Type Severity Reaction Status Date / Time sertraline [From Zoloft] Allergy BUMPS IN Verified 01/14/23 21:46 MOUTH Family History Other Anxiety and depression CVA (cerebral vascular accident) Diabetes Heart disease Hypertension Thyroid disorder Surgical History History of tonsillectomy Social History Smoking Status: Current every day smoker tobacco type: cigarettes substance use type: marijuana ROS ROS ED Constitutional Constitutional ED: Denies chills or fever(s) Eyes Eyes: Denies change in vision ENT ENT ED: Denies rhinorrhea or sore throat Cardiovascular Cardiovascular: Denies chest pain or palpitations Respiratory/Chest Respiratory/Chest: Denies cough or dyspnea Gastrointestinal Gastrointestinal: Denies abdominal pain, nausea or vomiting Genitourinary Genitourinary ED: Denies dysuria Musculoskeletal Musculoskeletal: Denies back pain or extremity pain Integumentary Denies Abrasions or rash Neurologic Neurologic: Denies headache(s) or weakness Psychiatric Psychiatric: Denies anxiety or depression Allergic/Immunologic Allergic/Immunologic ED: Denies lip swelling or urticaria EXAM Physical Exam Const Vital Signs: 01/14/23 21:44 Temperature 97.4 F L Temperature Source Temporal Pulse Rate 95 Respiratory Rate 16 Blood Pressure 125/75 H Blood Pressure Mean 91 Pulse Ox 97 Oxygen Delivery Method Room Air Positive well nourished and well developed General Appearance ED: well developed HEENT Reports normocephalic and head/scalp atraumatic Eyes PERRL and EOMs intact bilaterally Neck supple Chest Wall inspection of chest normal and palpation of chest normal Resp normal respiratory effort and clear to auscultation bilaterally Cardio regular rate and regular rhythm GI soft to palpation Auscultation: hypoactive bowel sounds Palpation: soft Extremity Extremity Narrative: Scattered ecchymosis noted to the lower extremities. Neuro oriented x3 and no sensory deficits noted Sensorium / Orientation: alert Motor Exam: strength 5/5 throughout Psych mental status grossly normal Skin no rashes or lesions noted Skin Narrative: Ecchymosis as noted above. MDM MDM MDM Narrative Medical decision making narrative: Patient did review the rules of the detox program and did agree to them. Labwork obtained to evaluate for leukocytosis, anemia, and electrolyte derangement. Lab Data Attestation: I reviewed the patient's lab results. Labs: Laboratory Results - last 24 hr 01/14/23 01/14/23 21:58 22:25 WBC 5.5 RBC 4.02 L Hgb 11.4 L Hct 33.9 L MCV 84.3 MCH 28.4 MCHC 33.6 RDW Std Deviation 42.8 RDW Coeff of Elizabeth 13.7 Plt Count 178 MPV 9.4 Immature Gran % (Auto) 0.200 Neut % (Auto) 37.7 L Lymph % (Auto) 52.1 H [place] % (Auto) 7.3 Eos % (Auto) 2.2 Baso % (Auto) 0.5 Absolute Neuts (auto) 2.1 Absolute Lymphs (auto) 2.85 Nucleated RBC % 0 Sodium 140 Potassium 3.7 Chloride 109 H Carbon Dioxide 27.0 Anion Gap 4 L BUN 12 Creatinine 0.83 Estim Creat Clear Calc 100.76 Est GFR (MDRD) Af Amer 107 Est GFR (MDRD) Non-Af 88 BUN/Creatinine Ratio 14.4 Glucose 123 H Calcium 8.4 L Total Bilirubin 0.30 AST 78 H ALT 136 H Alkaline Phosphatase 87 Total Protein 6.9 Albumin 3.5 Globulin 3.4 Albumin/Globulin Ratio 1.0 Serum , Qual NEGATIVE Urine Opiates Screen POSITIVE H Urine Methadone Screen NEGATIVE Ur Barbiturates Screen NEGATIVE Ur Phencyclidine Scrn NEGATIVE Ur Amphetamines Screen POSITIVE H MDMA (Ecstasy) Screen POSITIVE H U Benzodiazepines Scrn NEGATIVE Urine Cocaine Screen NEGATIVE U Cannabinoids Screen POSITIVE H Ur Drug Screen Comment Ethyl Alcohol < 3.0 Treatment and Re-Evaluation Narrative: CBC was normal white count 5.5 with a hemoglobin 11.4. Chemistry studies are unremarkable. Glucose is 123. LFTs do reveal an AST of 78 and an ALT of 136. test is negative. Tox screen is positive for opiates, amphetamines, MDMA, and cannabinoids. EtOH is negative. I will speak with hospitalist regarding admission for opiate detox. Discharge Plan Triage Chief Complaint: Substance Abuse ED Provider: Eneida Unger Dx/Rx/DC Orders Clinical Impression: Desire for detoxification, Heroin abuse Prescriptions: No Action NK Primary Care Provider: Wang Spaulding Referrals: Wang Spaulding MD [Primary Care Provider] - Disposition Disposition: Acute Care Hospital [facility]
--- NOTE | 2023-01-14 23:22 | HP.PCM.HOS_ITS ---
HPI - General General Date of Admission: 01/14/23 Date of Service: 01/14/23 Chief Complaint: Desire for detoxification HPI Narrative ROQUE LIND, is a 27 F with a significant history of IV and polysubstance abuse; tobacco abuse and hepatitis C who presents emergency department for help with detoxification. Patient has been using benzodiazepine; heroin; and methamphetamine for the past 3 to 4.5 years. She shoots methamphetamine. Last time she used methamphetamine was about a week ago. She used about half a gram to a gram of heroin per day. Last time she used was about 7 to 8 hours prior to presentation. She takes about 2 to 4 mg of Xanax daily. She reports 'eating' the Xanax. Also she smokes weed. She denies any withdrawal symptoms. Patient was at our hospital ([facility]) from 12/13/2022-12/17/2022 for detox and signed out AMA. She relapsed at the same night of discharge. [facility] Medical History Desire for detoxification Hepatitis C Home Medications NK 10/30/20 [History Last Taken Unknown] Allergy/AdvReac Type Severity Reaction Status Date / Time sertraline [From Zoloft] Allergy BUMPS IN Verified 01/14/23 21:46 MOUTH Family History Other Anxiety and depression CVA (cerebral vascular accident) Diabetes Heart disease Hypertension Thyroid disorder Surgical History History of tonsillectomy Social History Smoking Status: Current every day smoker tobacco type: cigarettes substance use type: marijuana ROS ROS Narrative Pertinent positives and pertinent negatives as noted in HPI. All other systems were reviewed and are negative Vital Signs Vital Signs Vital Signs: 01/14/23 21:44 Temperature 97.4 F L Temperature Source Temporal Pulse Rate 95 Respiratory Rate 16 Blood Pressure 125/75 H Blood Pressure Mean 91 Pulse Ox 97 Oxygen Delivery Method Room Air Weight Weight: 74.984 kg Body Mass Index (BMI) 25.9 Physical Exam Narrative Physical exam: General: Well-nourished, well-developed. Head: Normocephalic, atraumatic, no tenderness Eyes: Vision is grossly intact. EOMI ENT, no trauma, moist mucous membranes, no rhinorrhea Neck: Nontender, No thyromegaly. CVS: Regular rate and rhythm. S1-S2 present. No murmur, gallop or rub. Respiratory : clear to auscultation bilaterally, chest wall nontender Abdomen: Soft, nontender, nondistended, normal bowel sounds, no masses : Deferred Back: Nontender, no CVA tenderness, no midline spinal tenderness, deformities, step-offs Extremities: Nontender full range of motion, no trauma Skin: Needle track dumont in all 4 extremities. Normal color, no trauma, abrasions Neuro: Alert, oriented, cranial nerves II through XII grossly intact. Psychiatry: Normal mood. Normal affect. Not depressed. Not anxious. Results Lab / Micro Data 01/14/23 22:25 01/14/23 22:25 Labs: Laboratory Results - last 24 hr 01/14/23 21:58: Urine Opiates Screen POSITIVE H, Urine Methadone Screen NEGATIVE, Ur Barbiturates Screen NEGATIVE, Ur Phencyclidine Scrn NEGATIVE, Ur Amphetamines Screen POSITIVE H, MDMA (Ecstasy) Screen POSITIVE H, U Benzodiazepines Scrn NEGATIVE, Urine Cocaine Screen NEGATIVE, U Cannabinoids Screen POSITIVE H, Ur Drug Screen Comment 01/14/23 22:25: WBC 5.5, RBC 4.02 L, Hgb 11.4 L, Hct 33.9 L, MCV 84.3, MCH 28.4, MCHC 33.6, RDW Std Deviation 42.8, RDW Coeff of Elizabeth 13.7, Plt Count 178, MPV 9.4, Immature Gran % (Auto) 0.200, Neut % (Auto) 37.7 L, Lymph % (Auto) 52.1 H, Coos % (Auto) 7.3, Eos % (Auto) 2.2, Baso % (Auto) 0.5, Absolute Neuts (auto) 2.1, Absolute Lymphs (auto) 2.85, Nucleated RBC % 0, Sodium 140, Potassium 3.7, Chloride 109 H, Carbon Dioxide 27.0, Anion Gap 4 L, BUN 12, Creatinine 0.83, Estim Creat Clear Calc 100.76, Est GFR (MDRD) Af Amer 107, Est GFR (MDRD) Non-Af 88, BUN/Creatinine Ratio 14.4, Glucose 123 H, Calcium 8.4 L, Total Bilirubin 0.30, AST 78 H, ALT 136 H, Alkaline Phosphatase 87, Total Protein 6.9, Albumin 3.5, Globulin 3.4, Albumin/Globulin Ratio 1.0, Serum , Qual NEGATIVE, Ethyl Alcohol < 3.0 Assessment & Plan Assessment/Plan (1) Opiate abuse, continuous: (2) Desire for detoxification: (3) Benzodiazepine abuse: (4) Heroin abuse: PLAN: Plan Desire for Opioid Detox Patient be started on Subutex and other adjunctive medications: Gabapentin as needed; dicyclomine as needed; Vistaril as needed; methocarbamol as needed; clonidine as needed; Imodium as needed; trazodone as needed and Zofran as ne eded. Monitor COWS and CINA score Benzodiazepine abuse. Monitor CIWA. Phenobarbital taper ordered. Counseled. Tobacco abuse Counseled Nicotine patch prescribed. Cocaine abuse Review of records show the patient has a history of cocaine abuse. Avoid beta- blockers. Meth abuse Counseled DVT prophylaxis Low risk Encourage to ambulate Time spent in the patient's overall evaluation,decision-making process, review of diagnostic data, adjustment of management, discussion with other providers, nursing nursing and ancillary staff involved in patient's care documentation, 45 minutes. Charges/Coding Visit Charges Inpatient E&M: 18016 Init Hosp L2
[2023-01-14 23:27] VITALS: BP 104/74; PULSE 91; RESP 16; TEMP 36.1; O2SAT 99
[2023-01-15 00:11] VITALS: BMI 25.4
[2023-01-15 00:20] VITALS: BP 95/52; PULSE 67; RESP 17; TEMP 36.6; O2SAT 97
[2023-01-15] MEDS: Phenobarbital 32.4 MG Tablet 64.8 MG PO ×7 (00:37→23:36)
[2023-01-15 04:37] VITALS: BP 101/66; PULSE 66; RESP 16; TEMP 36.6; O2SAT 98
[2023-01-15] MEDS: hydrOXYzine PAM 25 MG Capsule 50 MG PO ×2 (08:12→17:32)
[2023-01-15 08:24] VITALS: BP 102/63; PULSE 63; RESP 18; TEMP 36.4; O2SAT 98
--- NOTE | 2023-01-15 11:51 | PCM.PN.HOSP ---
Reason for Visit Reason for Visit: Diagnoses Opioid abuse, uncomplicated (01/14/23) Sedative, hypnotic or anxiolytic abuse, uncomplicated (01/14/23) Subjective Subjective Reports aching in her legs and back, tired Objective Data Objective Data Vital Signs: Vital Signs Temp Pulse Resp BP Pulse Ox O2 Del Method 97.6 F L 63 18 102/63 98 Room Air 01/15/23 08:24 01/15/23 08:24 01/15/23 08:24 01/15/23 08:24 01/15/23 08:24 01/15/23 08:24 Oxygen Delivery Method Room Air Weight: 73.6 kg Body Mass Index (BMI) 25.4 Intake & Output: Intake and Output for Last 24 Hours 01/13/23 01/14/23 01/15/23 23:59 23:59 23:59 Intake Total 200 / 200 Balance 200 / 200 Lab / Micro Data 01/14/23 22:25 01/14/23 22:25 Labs: Laboratory Results - last 24 hr 01/14/23 21:58: Urine Opiates Screen POSITIVE H, Urine Methadone Screen NEGATIVE, Ur Barbiturates Screen NEGATIVE, Ur Phencyclidine Scrn NEGATIVE, Ur Amphetamines Screen POSITIVE H, MDMA (Ecstasy) Screen POSITIVE H, U Benzodiazepines Scrn NEGATIVE, Urine Cocaine Screen NEGATIVE, U Cannabinoids Screen POSITIVE H, Ur Drug Screen Comment 01/14/23 22:25: WBC 5.5, RBC 4.02 L, Hgb 11.4 L, Hct 33.9 L, MCV 84.3, MCH 28.4, MCHC 33.6, RDW Std Deviation 42.8, RDW Coeff of Elizabeth 13.7, Plt Count 178, MPV 9.4, Immature Gran % (Auto) 0.200, Neut % (Auto) 37.7 L, Lymph % (Auto) 52.1 H, Monroe % (Auto) 7.3, Eos % (Auto) 2.2, Baso % (Auto) 0.5, Absolute Neuts (auto) 2.1, Absolute Lymphs (auto) 2.85, Nucleated RBC % 0, Sodium 140, Potassium 3.7, Chloride 109 H, Carbon Dioxide 27.0, Anion Gap 4 L, BUN 12, Creatinine 0.83, Estim Creat Clear Calc 100.76, Est GFR (MDRD) Af Amer 107, Est GFR (MDRD) Non-Af 88, BUN/Creatinine Ratio 14.4, Glucose 123 H, Calcium 8.4 L, Total Bilirubin 0.30, AST 78 H, ALT 136 H, Alkaline Phosphatase 87, Total Protein 6.9, Albumin 3.5, Globulin 3.4, Albumin/Globulin Ratio 1.0, Serum , Qual NEGATIVE, Ethyl Alcohol < 3.0 Physical Exam Narrative General: Tired but wakes up and answers questions easily HEENT: Atraumatic, normocephalic Eyes: extraocular movements grossly intact Neck: Supple Respiratory: normal respiratory effort Cardiovascular: no edema appreciated GI: nondistended Extremities: Moving all extremities Neuro: No overt focal neurological deficits Psych: Reluctant to engage Assessment & Plan Assessment/Plan (1) Opiate abuse, continuous: (2) Desire for detoxification: (3) Benzodiazepine abuse: (4) Heroin abuse: PLAN: Plan Desire for Opioid Detox Patient be started on Subutex and other adjunctive medications: Gabapentin as needed; dicyclomine as needed; Vistaril as needed; methocarbamol as needed; clonidine as needed; Imodium as needed; trazodone as needed and Zofran as needed. Monitor COWS and CINA score -01/15: Subutex taper pending but patient is on phenobarb, continue present management Benzodiazepine abuse. Monitor CIWA. Phenobarbital taper ordered. Counseled. -01/15: Phenobarb taper begun Tobacco abuse Counseled Nicotine patch prescribed. Cocaine abuse Review of records show the patient has a history of cocaine abuse. Avoid beta-blockers. Meth abuse Counseled DVT prophylaxis Low risk Encourage to ambulate Time spent in the patient's overall evaluation,decision-making process, review of diagnostic data, adjustment of management, discussion with other providers, nursing nursing and ancillary staff involved in patient's care documentation, 20 minutes. Charges/Coding Visit Charges Inpatient E&M: 40771 [facility] Hosp L1
[2023-01-15] MEDS: Ibuprofen 600 MG Tablet PO ×2 (13:02→23:32)
[2023-01-15 14:40] VITALS: BP 95/50; PULSE 68; RESP 18; TEMP 37.1; O2SAT 97
[2023-01-15] MEDS: Methocarbamol 750 MG Tablet PO ×2 (17:32→23:32)
[2023-01-15] MEDS: cloNIDine HCl 0.1 MG Tablet PO (17:32)
[2023-01-15] MEDS: Buprenorphine HCl 2 MG TAB.SUBL SL (17:45)
[2023-01-15] MEDS: Gabapentin 300 MG Capsule PO (20:21)
[2023-01-15] MEDS: Ondansetron 8 MG Tablet PO (20:21)
[2023-01-15] MEDS: traZODone 100 MG Tablet PO (20:24)
[2023-01-15 20:36] VITALS: BP 109/74; PULSE 63; RESP 16; TEMP 36.6; O2SAT 98
[2023-01-16] MEDS: Buprenorphine HCl 2 MG TAB.SUBL SL (02:13)
[2023-01-16 02:17] VITALS: BP 106/48; PULSE 64; RESP 16; TEMP 36.5; O2SAT 99
[2023-01-16 08:32] VITALS: BP 91/56; PULSE 62; RESP 16; TEMP 36.6; O2SAT 97
--- NOTE | 2023-01-16 11:10 | ADDICTION ---
This specifications writer met with PT to conduct ASAM, MSE, AUDIT, DUDIT assessments and to plan for d/c. PT A+Ox4 and participated actively. All assessments completed and placed in PT's chart. PT plans to f/u with [facility] for follow-up in patient treatment services on Monday or Monday morning, depending on pt readiness.. [facility] will transport to treatment.
--- NOTE | 2023-01-16 13:20 | NURSING ---
Pt has been resting with eyes cloed all morning and not able to stay awake for more than a few seconds. All meds held at this time.
--- NOTE | 2023-01-16 15:22 | PN_ITS ---
Subjective Subjective Patient seen and examined. She was resting calmly. She had no active complaitns and had an uneventful night. Per her nurse, she was a bit more lethargic so phenobarb had been held this morning. Review of systems otherwise negative. Objective Data Objective Data Vital Signs: Vital Signs Temp Pulse Resp BP Pulse Ox O2 Del Method 97.8 F 62 16 91/56 L 97 Room Air 01/16/23 08:32 01/16/23 08:32 01/16/23 08:32 01/16/23 08:32 01/16/23 08:32 01/16/23 08:32 Oxygen Delivery Method Room Air Weight: 162 lb 4.163 oz Body Mass Index (BMI) 25.4 Intake & Output: Intake and Output for Last 24 Hours 01/14/23 01/15/23 01/16/23 23:59 23:59 23:59 Intake Total 600 / 600 Balance 600 / 600 Lab / Micro Data 01/14/23 22:25 01/14/23 22:25 Physical Exam Const alert Constitutional Narrative: drowsy General Appearance: cooperative HEENT normocephalic, moist oral mucous membranes and oropharynx normal Eyes PERRL and EOMs intact bilaterally Neck no lymphadenopathy, supple and thyroid normal Lymph Lymphatic: no lymphadenopathy noted and no lymphedema noted Resp normal respiratory effort, normal air movement and clear to auscultation bilaterally Cardio regular rate, regular rhythm, S1 normal heart sound, S2 normal heart sound and no murmurs GI normal to inspection, nondistended, normoactive bowel sounds, soft to palpation, non-tender and non-distended Extremity normal capillary refill, no clubbing, cyanosis or edema and no calf tenderness General Extremity: no tenderness to palpation of joints or extremities Skin General Skin Exam: no breakdown Neuro CN's II-XII intact bilaterally, no focal motor deficits, no sensory deficits noted and deep tendon reflexes 2+ bilaterally Motor Exam: strength 5/5 throughout Psych Psych Narrative: drowsy, lethargic Assessment & Plan Assessment/Plan (1) Desire for detoxification: (2) Opiate abuse, continuous: PLAN: Plan #Acute opioid withdrawal * On opioid withdrawal protocol with buprenorphine. Adjunctive meds for symptomatic relief. * #Benzodiazepine abuse * On phenobarbital taper. Was held today because patient was lethargic this mor willie. * Adjunctive meds for symptomatic relief. * #Nicotine dependence: Counseled to quit. Nicotine patch 21 mg daily. #Polysubstance abuse: Urine tox positive for methamphetamines, MDMA and cannabin oids. Counseled to quit. DVT prophylaxis cardiac low risk. Encouraged to ambulate. Charges/Coding Visit Charges Inpatient E&M: 81541 Subs Hosp L2
[2023-01-16 20:04] VITALS: BP 91/56; PULSE 62; RESP 16; TEMP 36.1; O2SAT 97
[2023-01-16] MEDS: Phenobarbital 32.4 MG Tablet 64.8 MG PO (20:05)
[2023-01-16] MEDS: Methocarbamol 750 MG Tablet PO (20:16)
[2023-01-16] MEDS: Ibuprofen 600 MG Tablet PO (20:16)
[2023-01-16] MEDS: Ondansetron 8 MG Tablet PO (20:16)
[2023-01-17] MEDS: Phenobarbital 32.4 MG Tablet 64.8 MG PO ×3 (01:29→08:20)
[2023-01-17] MEDS: Buprenorphine HCl 2 MG TAB.SUBL SL (01:30)
[2023-01-17 01:31] VITALS: BP 97/64; PULSE 62; RESP 16; TEMP 36.4; O2SAT 99
[2023-01-17] MEDS: hydrOXYzine PAM 25 MG Capsule 50 MG PO (01:36)
[2023-01-17] MEDS: Methocarbamol 750 MG Tablet PO (05:28)
[2023-01-17] MEDS: Gabapentin 300 MG Capsule PO (05:28)
[2023-01-17] MEDS: Dicyclomine 10 MG Capsule 20 MG PO (05:29)
[2023-01-17] MEDS: Ibuprofen 600 MG Tablet PO (05:29)
[2023-01-17 05:31] VITALS: BP 93/59; PULSE 60; RESP 16; TEMP 36.6; O2SAT 97
[2023-01-17 08:11] VITALS: BP 99/66; PULSE 61; RESP 16; TEMP 36.6; O2SAT 99
--- NOTE | 2023-01-17 09:51 | DCINST_ITS ---
Discharge Instructions Diet Discharge Diet: No restrictions Activity Discharge Activity: Return to Normal Activity Weight Bearing Status: Weight bearing as tolerated Dressing / Incision Call your doctor if you observe: Fever of 101 or Higher, Shortness of breath, Dizziness, Swelling in the ankles, Chest pain and Increased palpitations (irregular heartbeat) Follow Up Care Test Results: Test results from this visit will be discussed in further detail at your follow- up appointment, if applicable. Discharge Plan Admission Admit Date/Time: 01/14/23 23:24 Primary Reason for Your Visit: opioid withdrawal Attending Provider: Susanna Gomez Primary Care Provider: Wang Spaulding Consulting Providers: Jorje Carlson; Stephania Garcia Instructions Patient Instructions: ED Opiate Abuse, ED Opioid Withdrawal Discharge Orders/Prescriptions Prescriptions: No Action NK Referrals / Follow Up: Wang Spaulding MD [Primary Care Provider] - Within 2 Weeks Disposition Disposition (needs filled in before D/C Order can be placed): Home, Self Care
--- NOTE | 2023-01-17 09:52 | DS.PCM_ITS ---
Providers Date of Admission: 01/14/23 Date of Discharge: 01/17/23 Primary Care Physician: Dr. Wang Spaulding MD Reason For Visit: DESIRE FOR DETOXIFICATION Diagnosis Discharge Diagnosis (1) Desire for detoxification: Status: Acute (2) Opiate abuse, continuous: Status: Acute Code(s): F11.10 - Opioid abuse, uncomplicated Plan #Acute opioid withdrawal * On opioid withdrawal protocol with buprenorphine. Adjunctive meds for symptomatic relief. * #Benzodiazepine abuse * On phenobarbital taper. Was held today because patient was lethargic this morning. * Adjunctive meds for symptomatic relief. * #Nicotine dependence: Counseled to quit. Nicotine patch 21 mg daily. #Polysubstance abuse: Urine tox positive for methamphetamines, MDMA and cannabinoids. Counseled to quit. DVT prophylaxis cardiac low risk. Encouraged to ambulate. Medications at Discharge Home Medications NK 10/30/20 Hospital Course Operations None Procedures None Summary of Care Provided Minutes Spent on Discharge: 48 Hospital Course: Patient is a 27-year-old female with a past medical history of polysubstance abuse and nicotine dependence as well as hepatitis C. She was admitted through the ED on 01/14/2023 for acute opioid withdrawal. She had been using benzodiazepines, heroin and methamphetamine for about 3 to 4 years. She used the methamphetamine IV as well as the heroin and also says she gets Xanax about 2 to 4 mg daily. Urine tox was positive for opioids, MDMA and amphetamines as well as urine cannabinoids. She was admitted and managed for acute opioid withdrawal as well as acute benzodiazepine withdrawal. She was started on buprenorphine withdrawal protocol as well as phenobarbital withdrawal protocol. She tolerated the 3-day detox and felt well. She was discharged home on 01/17/2023 to follow-up on outpatient basis with an outpatient rehab facility. Patient was seen and examined prior to discharge. She felt well and had no complaints. She had an uneventful night and review of systems otherwise negative. Labs and vitals reviewed. Home medication reviewed and reconciled. Physical Exam Const alert, oriented x3 and no apparent distress Constitutional Narrative: drowsy General Appearance: cooperative and comfortable Orientation / Consciousness: awake HEENT normocephalic, hearing grossly normal bilaterally, moist oral mucous membranes and oropharynx normal Eyes PERRL and EOMs intact bilaterally Neck no lymphadenopathy, supple, no JVD and thyroid normal Lymph Lymphatic: no lymphadenopathy noted and no lymphedema noted Resp normal respiratory effort, normal air movement and clear to auscultation bilaterally Cardio regular rate, regular rhythm, S1 normal heart sound, S2 normal heart sound and no murmurs GI normal to inspection, nondistended, normoactive bowel sounds, soft to palpation, non-tender and non-distended Extremity normal to inspection, full ROM, normal capillary refill, no clubbing, cyanosis or edema and no calf tenderness General Extremity: no tenderness to palpation of joints or extremities Skin no rashes or lesions noted General Skin Exam: no breakdown Neuro oriented x3, CN's II-XII intact bilaterally, moves all extremities, no focal motor deficits, no sensory deficits noted and deep tendon reflexes 2+ bilate rally Sensorium / Orientation: awake and alert Motor Exam: strength 5/5 throughout Psych affect normal Weight / BMI Weight Weight: 162 lb 4.163 oz Body Mass Index (BMI) 25.4 ABG / Lab / Microbiology Data 01/14/23 22:25 01/14/23 22:25 D/C Instructions Discharge Diet: No restrictions Discharge Activity: Return to Normal Activity Weight Bearing Status: Weight bearing as tolerated Call your doctor if you observe: Fever of 101 or Higher, Shortness of breath, Dizziness, Swelling in the ankles, Chest pain and Increased palpitations (irregular heartbeat) Meaningful Use Info Meaningful Use Diagnoses (Choose all that apply): None applicable Discharge Plan Admission Admit Date/Time: 01/14/23 23:24 Primary Reason for Your Visit: opioid withdrawal Attending Provider: Susanna Gomez Primary Care Provider: Wang Spaulding Consulting Providers: Jorje Carlson; Stephania Garcia Instructions Patient Instructions: ED Opiate Abuse, ED Opioid Withdrawal Discharge Orders/Prescriptions Prescriptions: No Action NK Referrals / Follow Up: Wang Spaulding MD [Primary Care Provider] - Within 2 Weeks Disposition Disposition (needs filled in before D/C Order can be placed): Home, Self Care Charges/Coding Visit Charges Inpatient E&M: 88010 Disch Hosp >30min
--- NOTE | 2023-01-17 10:40 | PHA.DC.MR.R ---
Pharmacy [place] Med Reconciliation Pharmacy Service has performed discharge medication reconciliation for this patient. The patient's discharge medication list was reviewed for discrepancies and discrepancies were resolved. Medications at Discharge Home Medications NK 10/30/20
== END 2023-01-17 10:59 | disposition home or self-care (01) | DRG 773 ==
LOC: ED 23:11 → MS3 23:37
PROVIDERS: Admitting Provider Hospitalist; Emergency Provider Emergency Medicine; PCP Family Medicine; Visit Provider Student in an Organized Health Care Education/Training Program
DX: F11.23 Opioid dependence with withdrawal (principal); F14.10 Cocaine abuse, uncomplicated; F15.10 Other stimulant abuse, uncomplicated; F17.210 Nicotine dependence, cigarettes, uncomplicated
CPT/HCPCS: 36415; 80053; 80307; 82077; 84703; 85025; 99283

== ENCOUNTER 2023-01-31 21:52 | Inpatient (IN) | payer MEDICAID, SELFPAY ==
[2023-01-31 21:53] VITALS: BP 128/86; PULSE 126; RESP 15; TEMP 36.6; O2SAT 98; BMI 25.7
--- NOTE | 2023-01-31 22:13 | EX.ED.DYSGE1 ---
HPI History of Present Illness Chief Complaint: Substance Abuse Informant: patient Narrative Narrative: Patient is a 27-year-old female with past medical history of polysubstance abuse. She was admitted to the detox program on January 14 and discharged on January 17. Patient states when she was discharged there was a problem with her continued rehab placement and therefore she began using once again that day. She states she has been using daily since January 17. She states that she has been doing 4 to 6 mg of Xanax orally daily and injecting heroin. She states that she knows she cannot continue on this course as she had an older sister who did the same thing and this past year and secondary to concern/desire for detox comes in for evaluation [facility] Medical History Benzodiazepine abuse Desire for detoxification Hepatitis C Heroin abuse Opiate abuse, continuous Home Medications NK 10/30/20 [History Last Taken Unknown] Allergy/AdvReac Type Severity Reaction Status Date / Time sertraline [From Zoloft] Allergy BUMPS IN Verified 01/31/23 21:58 MOUTH Family History Other Anxiety and depression CVA (cerebral vascular accident) Diabetes Heart disease Hypertension Thyroid disorder Surgical History History of tonsillectomy Social History Smoking Status: Current every day smoker tobacco type: cigarettes substance use type: marijuana ROS ROS ED Constitutional Constitutional ED: Denies chills or fever(s) ENT ENT ED: Denies sore throat Cardiovascular Cardiovascular: Denies chest pain Respiratory/Chest Respiratory/Chest: Denies cough or dyspnea Gastrointestinal Gastrointestinal: Denies abdominal pain, diarrhea, nausea or vomiting Genitourinary Genitourinary ED: Denies dysuria Musculoskeletal Musculoskeletal: Denies myalgias Integumentary Denies rash Neurologic Neurologic: Denies headache(s) Psychiatric Psychiatric: Denies suicidal ideation or suicidal thoughts Hematologic/Lymphatic Hematologic/Lymphatic: Denies easy bleeding or easy bruising EXAM Physical Exam Const Vital Signs: 01/31/23 21:53 Temperature 97.8 F Temperature Source Temporal Pulse Rate 126 H Respiratory Rate 15 Blood Pressure 128/86 H Blood Pressure Mean 100 Pulse Ox 98 Oxygen Delivery Method Room Air Positive well nourished and well developed General Appearance ED: well developed HEENT HEENT Narrative: Normocephalic atraumatic Eyes PERRL and EOMs intact bilaterally Neck supple Neck Narrative: No nuchal rigidity or meningeal signs noted Resp normal respiratory effort and clear to auscultation bilaterally Cardio regular rhythm Rate: tachycardic and other Other Details: Tachycardic rate with regular rhythm No murmurs rubs or gallops noted GI non-tender and non-distended GI Narrative: Abdomen is soft nontender nondistended with hypoactive bowel sounds. No voluntary guarding or rigidity or pulsatile mass Auscultation: hypoactive bowel sounds Palpation: soft Extremity Extremity Narrative: Patient has track dumont present to both arms and legs consistent with IV opioid use Negative Homans' sign bilaterally There is trace to +1 pitting edema to the bilateral lower extremities the patient states is chronic in nature Neuro oriented x3 and CN's II-XII intact bilaterally Sensorium / Orientation: alert Psych mental status grossly normal Psych Narrative: No homicidal or suicidal ideation Skin Skin Narrative: Track dumont to arms and legs as documented above MDM MDM MDM Narrative Medical decision making narrative: Patient presented to the ER tachycardic but otherwise with stable vitals. She reported that after she completed detox earlier in the month that she began using on the day of discharge and had been using daily. She denies any homicidal or suicidal ideation and therefore there is no need for a psychiatric work. At this time her physical exam does not suggest any type of secondary infection and even though she uses IV heroin she does not have a new murmur to suggest endocarditis and there are no splinter lesions or [place]ay lesions. Therefore from an ER standpoint the patient is medically cleared and with need for placement for detox as she does risk going through benzodiazepine withdrawal and seizures secondary to this medicine was contacted. Hospitalist evaluated the patient I do agree to place her in the detox program at this time. History & Record Review Discussion w/independent historian: Patient Lab Data Attestation: I reviewed the patient's lab results. Labs: Laboratory Results - last 24 hr 01/31/23 01/31/23 01/31/23 22:30 22:30 23:15 WBC Cancelled Corrected WBC Cancelled RBC Cancelled Hgb Cancelled Hct Cancelled MCV Cancelled MCH Cancelled MCHC Cancelled RDW Std Deviation Cancelled RDW Coeff of Elizabeth Cancelled Plt Count Cancelled MPV Cancelled Immature Gran % (Auto) Cancelled Neut % (Auto) Cancelled Lymph % (Auto) Cancelled Kay % (Auto) Cancelled Eos % (Auto) Cancelled Baso % (Auto) Cancelled Absolute Neuts (auto) Cancelled Absolute Lymphs (auto) Cancelled Total Counted Cancelled Neutrophils % (Manual) Cancelled Band Neutrophils % Cancelled Lymphocytes % (Manual) Cancelled Monocytes % (Manual) Cancelled Eosinophils % (Manual) Cancelled Basophils % (Manual) Cancelled Metamyelocytes % Cancelled Myelocytes % Cancelled Promyelocytes % Cancelled Blast Cells % Cancelled Plasma Cell % (Manual) Cancelled Other Cells % Cancelled Nucleated RBC % Cancelled Nucleated RBCs/100 WBC Cancelled Differential Comment Cancelled Diff Path Review Cancelled Hypersegmented Neuts Cancelled Atypical Lymphocytes Cancelled Reactive Lymphocytes Cancelled Smudge Cells Cancelled Toxic Granulation Cancelled Toxic Vacuolation Cancelled Dohle Bodies Cancelled Elsie Rods Cancelled Platelet Estimate Cancelled Plt Morphology Comment Cancelled RBC Morphology Cancelled Cancelled Polychromasia Cancelled Hypochromasia Cancelled Poikilocytosis Cancelled Basophilic Stippling Cancelled Anisocytosis Cancelled Microcytosis Cancelled Macrocytosis Cancelled Spherocytes Cancelled Sickle Cells Cancelled Target Cells Cancelled Tear Drop Cells Cancelled Ovalocytes Cancelled Stomatocytes Cancelled [place] Bodies Cancelled Ronal Cells Cancelled Bite Cells Cancelled Crenated Cell Cancelled Acanthocytes (Spur) Cancelled Rouleaux Cancelled Schistocytes Cancelled PT INR Urine Test Negative Ur Drug Screen Comment 01/31/23 23:20 WBC 8.2 Corrected WBC RBC 4.25 Hgb 12.1 Hct 36.3 L MCV 85.4 MCH 28.5 MCHC 33.3 RDW Std Deviation 43.7 RDW Coeff of Elizabeth 14.0 Plt Count 202 MPV 9.5 Immature Gran % (Auto) 0.100 Neut % (Auto) 48.3 Lymph % (Auto) 42.5 H Kay % (Auto) 7.3 Eos % (Auto) 1.3 Baso % (Auto) 0.5 Absolute Neuts (auto) 4.0 Absolute Lymphs (auto) 3.49 Total Counted Neutrophils % (Manual) Band Neutrophils % Lymphocytes % (Manual) Monocytes % (Manual) Eosinophils % (Manual) Basophils % (Manual) Metamyelocytes % Myelocytes % Promyelocytes % Blast Cells % Plasma Cell % (Manual) Other Cells % Nucleated RBC % 0 Nucleated RBCs/100 WBC Differential Comment Diff Path Review Hypersegmented Neuts Atypical Lymphocytes Reactive Lymphocytes Smudge Cells Toxic Granulation Toxic Vacuolation Dohle Bodies Elsie Rods Platelet Estimate Plt Morphology Comment RBC Morphology Polychromasia Hypochromasia Poikilocytosis Basophilic Stippling Anisocytosis Microcytosis Macrocytosis Spherocytes Sickle Cells Target Cells Tear Drop Cells Ovalocytes Stomatocytes [place] Bodies Ronal Cells Bite Cells Crenated Cell Acanthocytes (Spur) Rouleaux Schistocytes PT 13.7 INR 1.1 Urine Test Ur Drug Screen Comment Management Discussion w/another healthcare provider: Hospitalist Discharge Plan Triage Chief Complaint: Substance Abuse ED Provider: Scott Bonilla Dx/Rx/DC Orders Clinical Impression: Desire for detoxification, Polysubstance abuse Primary Care Provider: Wang Spaulding Disposition Disposition: Acute Care Hospital [facility]
--- NOTE | 2023-01-31 23:07 | HP.PCM.HOS_ITS ---
HPI - General General Date of Admission: 01/31/23 Date of Service: 01/31/23 Chief Complaint: Opioid and benzodiazepine withdrawal symptoms HPI Narrative ROQUE LIND, is a 27 F with history of chronic IVDA, heroin use and Xanax 2 mg 1-3 times daily came to ED for anxiety, muscle aches pain and hot and cold sensation. Patient has been admitted 2 times in the last month for similar symptoms. Patient signed AMA on first admission and then discharge during last admission. Patient has track dumont in both upper extremity along with the localized redness and bumps in the legs. Her right leg is slightly bigger than left leg. Denies fever. She had history of abscess in the past but denied endocarditis or deep bone or joint infection. [facility] Medical History Benzodiazepine abuse Desire for detoxification Hepatitis C Heroin abuse Opiate abuse, continuous Home Medications NK 10/30/20 [History Last Taken Unknown] Allergy/AdvReac Type Severity Reaction Status Date / Time sertraline [From Zoloft] Allergy BUMPS IN Verified 01/31/23 21:58 MOUTH Family History Other Anxiety and depression CVA (cerebral vascular accident) Diabetes Heart disease Hypertension Thyroid disorder Surgical History History of tonsillectomy Social History Smoking Status: Current every day smoker tobacco type: cigarettes substance use type: marijuana ROS ROS Narrative Constitutional: Reports fatigue and weakness. No fever. HEENT: Reports systems reviewed and no addt'l complaints, except as documented Respiratory/Chest: No acute shortness of breath or respiratory distress or wheezing. CVS: No chest pain or pressure Gastrointestinal: Denies coffee ground emesis, hematemesis or vomiting Genitourinary: Denies burning urination or new urinary tract symptoms Musculoskeletal: Denies acute joint pain or limited range of motion. No acute injury Neurologic: Denies seizure-like symptoms. skin: Mild redness in legs patchy, small and localized Endocrinology: Reports systems reviewed and no addt'l complaints, except as documented Hematologic/Lymphatic: Reports systems reviewed and no addt'l complaints, except as documented Rest 14 ROS are negative except as mentioned in HPI Vital Signs Vital Signs Vital Signs: 01/31/23 21:53 Temperature 97.8 F Temperature Source Temporal Pulse Rate 126 H Respiratory Rate 15 Blood Pressure 128/86 H Blood Pressure Mean 100 Pulse Ox 98 Oxygen Delivery Method Room Air Weight Weight: 164 lb Body Mass Index (BMI) 25.7 Physical Exam Narrative General: Alert, Oriented x3, Cooperative HEENT: Atraumatic, PERRLA, EOMI, Normocephalic Oral: Oral mucosa dry. No Gingival or Mucosal Lesions/ Ulcerations Neck: Supple, No JVD, Negative Carotid Bruits Lungs: Air entry diminished in bilateral lung bases. No crepitation/rhonchi Cardiovascular: Regular rate, Regular Rhythm, Normal S1, Normal S2, No murmurs Abdomen: Bowel Sounds Present, Soft, Non Tender, Non-Distended : No renal angle tenderness. No suprapubic tenderness. Extremities: No edema, Capillary Refill Less than 3 Seconds Skin: Mild redness/erythema 1 to 2 cm localized in legs. Musculoskeletal: No Tenderness to Palpation of Joints or Extremities. ROM intact Neurological: Cranial nerves II-XII grossly intact, DTR 2+/4. No acute focal neurological deficit. No seizure Psych/Mental Status: flat affect, anxiety. Denies hallucination Results Lab / Micro Data 01/31/23 23:20 01/31/23 23:20 Labs: Laboratory Results - last 24 hr 01/31/23 22:30: WBC Cancelled, Corrected WBC Cancelled, RBC Cancelled, Hgb Cancelled, Hct Cancelled, MCV Cancelled, MCH Cancelled, MCHC Cancelled, RDW Std Deviation Cancelled, RDW Coeff of Elizabeth Cancelled, Plt Count Cancelled, MPV Cancelled, Immature Gran % (Auto) Cancelled, Neut % (Auto) Cancelled, Lymph % (A uto) Cancelled, Barber % (Auto) Cancelled, Eos % (Auto) Cancelled, Baso % (Auto) Cancelled, Absolute Neuts (auto) Cancelled, Absolute Lymphs (auto) Cancelled, Total Counted Cancelled, Neutrophils % (Manual) Cancelled, Band Neutrophils % Cancelled, Lymphocytes % (Manual) Cancelled, Monocytes % (Manual) Cancelled, Eosinophils % (Manual) Cancelled, Basophils % (Manual) Cancelled, Metamyelocytes % Cancelled, Myelocytes % Cancelled, Promyelocytes % Cancelled, Blast Cells % Cancelled, Plasma Cell % (Manual) Cancelled, Other Cells % Cancelled, Nucleated RBC % Cancelled, Nucleated RBCs/100 WBC Cancelled, Differential Comment Cancelled, Diff Path Review Cancelled, Hypersegmented Neuts Cancelled, Atypical Lymphocytes Cancelled, Reactive Lymphocytes Cancelled, Smudge Cells Cancelled, Toxic Granulation Cancelled, Toxic Vacuolation Cancelled, Dohle Bodies Cancelled, Elsie Rods Cancelled, Platelet Estimate Cancelled, Plt Morphology Comment Cancelled, RBC Morphology Cancelled 01/31/23 22:30: RBC Morphology Cancelled, Polychromasia Cancelled, Hypochromasia Cancelled, Poikilocytosis Cancelled, Basophilic Stippling Cancelled, Anisocytosis Cancelled, Microcytosis Cancelled, Macrocytosis Cancelled, Spherocytes Cancelled, Sickle Cells Cancelled, Target Cells Cancelled, Tear Drop Cells Cancelled, Ovalocytes Cancelled, Stomatocytes Cancelled, [place] Bodies Cancelled, [place] Cells Cancelled, Bite Cells Cancelled, Crenated Cell Cancelled, Acanthocytes (Spur) Cancelled, Rouleaux Cancelled, Schistocytes Cancelled Assessment & Plan Assessment/Plan (1) Acute hyperactive opioid withdrawal delirium: (2) Benzodiazepine abuse: PLAN: Plan 1. Acute opioid withdrawal syndrome with history of chronic IVDA use, dependence and tolerance: [facility] The patient is started on buprenorphine along with other adjunctive medications as needed for medical stabilization as per order set of opioid withdrawal syndrome.Patient also on trazodone, hydroxyzine, gabapentin as needed ordered. Advised quitting opioid use. mountain services manager consult evaluation for rehab. 2. Acute benzodiazepine/alprazolam withdrawal syndrome with history of chronic use and dependence: Patient states she uses Xanax/alprazolam 2 mg, 1 tablet 1-3 times daily. She had seizure in the past. She states he gets anxiety outburst, insomnia, nightmares. Patient on phenobarbital based order set along with other adjunctive medications gabapentin, Bentyl, Vistaril, clonidine, Klonopin as needed for benzodiazepine withdrawal symptom control. Hold phenobarbital if patient is drowsy or lethargic. U tox shows positive barbiturate, opioids, amphetamine, ecstasy, cannabinoids and benzodiazepine. test negative. 3. Localized cellulitis in legs: Patient is started on Bactrim DS and Keflex. She denies burning micturition. Clinically denies evidence of UTI. UA shows LE 25, nitrite negative. 4. Asymmetric leg swelling, right leg more than left leg: Venous duplex ordered. Empirically Lovenox 1 mg/kg body weight 1 dose given till venous duplex is done. 5. Chronic hepatitis C: Continue to follow-up in GI clinic for outpatient evaluation management. Charges/Coding Visit Charges Inpatient E&M: 59621 Init Hosp L3
[2023-01-31 23:23] LABS: Internal QC Validated? YES +Cl - CLEAR BKGD; Pregnancy, Urine Negative Negative
[2023-01-31 23:27] LABS: Absolute Lymphocyte Count 3.49 X10^3/uL (0.83-4.51); Basophil# 0.04 X10^3/uL; Basophil% 0.5 % (0-1); Eosinophil# 0.11 X10^3/uL; Eosinophils% 1.3 % (0-5); Hematocrit 36.3 % (37-47); Hemoglobin 12.1 g/dL (12.0-15.0); Lymphocyte # 3.49 X10^3/ul (0.83-4.51); Lymphocyte % 42.5 % (19-41); Mean Corp Hgb Conc 33.3 g/dL (32-36); Mean Corpuscular Hgb 28.5 pg (27.0-32.0); Mean Corpuscular Volume 85.4 fL (81-99); Mean Platelet Vol. 9.5 fl (6.2-12.0); Monocyte% 7.3 % (0-10); NRBC Flagged by Analyzer 0 % (0-5); Neutrophil # 3.96 X10^3/uL (2.7-7.7); Neutrophil % 48.3 % (47-70); Platelet Count 202 K/mm3 (150-450); RBC Distribution Width SD 43.7 fl (35.1-43.9); Red Blood Count 4.25 M/mm3 (4.2-5.4); White Blood Count 8.2 K/mm3 (4.4-11.0)
--- NOTE | 2023-01-31 23:30 | VDLE_ITS ---
Reason For Study: Bilateral leg pain RIGHT LEFT GSV is normal. GSV is normal. CFV is compressible, spontaneous, phasic, CFV is compressible, spontaneous, phasic, competent and demonstrates normal competent, and demonstrates normal augmentation. augmentation. FV is compressible, spontaneous, phasic, FV is compressible, spontaneous, phasic, competent and demonstrates normal competent and demonstrates normal augmentation. augmentation. POP V is compressible, spontaneous, phasic, POP V is compressible, spontaneous, phasic, competent and demonstrates normal competent and demonstrates normal augmentation. augmentation. T/P Trunk is compressible. T/P Trunk is compressible. PTV is compressible. PTV is compressible. RT PerV is compressible. LT PerV is compressible. Procedure This is a venous duplex using B-mode, color flow and spectral Doppler. Exam performed portable in patient room. A preliminary report was called and/or faxed to [facility]. VL/Venous Duplex US - Paulino Extrem Interpretation Summary Deep veins of the bilateral lower extremities are patent and compressible segme ntally. There is no evidence of bilateral lower extremity deep vein thrombosis. The bilateral great saphenous veins appear patent and compressible segmentally. Ordering Physician: Darien Jean Referring Physician: Wang Spaulding Performed By: Tash Mcclendon RVT
[2023-01-31 23:35] LABS: Red Blood Cells-Urine 0 SEEN /hpf (0-5)
[2023-01-31 23:38] LABS: International Normalized Ratio 1.1; Prothrombin Time (Protime)PT. 13.7 SECONDS (11.7-14.9)
[2023-01-31 23:38] LABS: Color, Urine Yellow (Yellow); Glucose, Dipstick Normal (Normal); Ketone-Dipstick 5 mg/dl (Negative); Leukocyte Esterase-Dipstick 25 /ul (Negative); Nitrite-Dipstick Negative (Negative); Occult Blood-Urine Negative /ul (Negative); Protein-Dipstick 30 mg/dl (Negative); Specific Gravity, Urine 1.025 (1.002-1.030); Urine Bilirubin Dipstick Negative (Negative); Urine Clarity Clear (Clear); Urine Urobilinogen 1 mg/dl (Normal)
[2023-01-31 23:39] VITALS: BP 127/70; PULSE 72; TEMP -7.7; TEMP 18; O2SAT 100
[2023-01-31 23:42] LABS: Alcohol, Blood (Medical)-Serum < 3.0 mg/dL
[2023-01-31 23:57] LABS: Amphetamine Urine VISTA POSITIVE (<1000 ng/mL); Bacteria 2+ /hpf (None Seen); Barbiturate Urine VISTA POSITIVE (< 200 ng/mL); Benzodiazepine Urine VISTA POSITIVE (< 200 ng/mL); Cocaine Urine VISTA NEGATIVE (< 300 ng/mL); Ecstacy Urine VISTA POSITIVE (< 500 ng/mL); Methadone Urine VISTA NEGATIVE (< 300 ng/mL); Mucous, Urine 1+ /hpf (<or=2+); PCP Urine VISTA NEGATIVE (< 25 ng/mL); Squamous Epithelial Cells - UA 0-5 SEEN /hpf (5-10); THC Urine VISTA POSITIVE (< 50 ng/mL); Vista UDS pH Range 6; White Blood Cells 0-5 SEEN /hpf (0-5)
[2023-02-01 00:02] LABS: ALB/GLOB Ratio 1.1 RATIO (0.9-2.4); AST(SGOT) 57 U/L (15-37); Alanine Aminotransfer ALT/SGPT 112 U/L (13-56); Albumin, Serum 3.9 g/dL (3.2-5.0); Alkaline Phosphatase 95 U/L (45-117); Anion Gap 6 (5-15); BUN 12 mg/dL (7-18); Calcium,Total 8.7 mg/dL (8.5-10.1); Chloride 110 mmol/L (98-107); EST Glomerular Filtration Rate 92 mL/min (>60); Est Glom Filt Rate - Afr Amer 112 mL/min (>60); Estimated Creatinine Clearance 104.54 ml/min; Globulin 3.5 g/dL (2.2-4.2); Glucose 96 mg/dL (74-106); Potassium 3.8 mmol/L (3.5-5.1); Protein, Total 7.4 g/dL (6.4-8.2); Sodium Level 141 mmol/L (136-145)
[2023-02-01 00:53] VITALS: BMI 25.0
[2023-02-01 01:04] VITALS: BP 126/76; PULSE 97; RESP 17; TEMP 36.3; O2SAT 98
[2023-02-01] MEDS: Cephalexin 500 MG Capsule PO ×3 (01:06→13:00)
[2023-02-01] MEDS: Enoxaparin 80 MG/0.8 ML Syringe 70 MG SC (01:06)
[2023-02-01] MEDS: Smz/Tmp Ds Tablet 1 TABLET PO ×3 (01:06→17:40)
[2023-02-01] MEDS: traZODone 100 MG Tablet PO (01:14)
[2023-02-01] MEDS: hydrOXYzine PAM 25 MG Capsule 50 MG PO (01:14)
[2023-02-01] MEDS: Phenobarbital 32.4 MG Tablet 97.2 MG PO ×5 (01:57→17:40)
[2023-02-01 05:34] VITALS: BP 97/51; PULSE 70; RESP 16; TEMP 36.4; O2SAT 97
--- NOTE | 2023-02-01 08:38 | DS.PCM_ITS ---
Providers Date of Admission: 01/31/23 Date of Discharge: 02/01/23 Primary Care Physician: Dr. Wang Spaulding MD Reason For Visit: ACUTE OPIOID WITHDRAWAL Diagnosis Discharge Diagnosis (1) Acute hyperactive opioid withdrawal delirium: Status: Acute Code(s): F11.93 - Opioid use, unspecified with withdrawal (2) Polysubstance abuse: Status: Acute Code(s): F19.10 - Other psychoactive substance abuse, uncomplicated Plan #Acute opioid withdrawal * on opioid withdrawal protocol with buprenorphine * adjunctive meds for symptomatic relief * monitor CINA score. * #Acute benzodiazepine withdrawal * uses xanaz at least 3 x daily * on benzodiazepine withdrawal protocol with phenobarbital * adjunctive meds for symtomatic relief * Urine tox did show barbiturates, opioids and amphetamine as well as ecstasy, cannabinoids and benzodiazepines. * #Cellulitis of lower extremities. On Bactrim and Keflex. Duplex of the lower extremity showed no evidence of DVT. #Chronic hepatitis C: Treatment na?ve. Counseled that she would have to be off drugs for at least 6 months qualify for treatment with. Follow-up with gastroenterology at outpatient basis. DVT prophylaxis: DC Lovenox which was started on due to concerns about DVT. Low risk. Encouraged to ambulate. Medications at Discharge Home Medications NK 10/30/20 Hospital Course Operations None Procedures None Summary of Care Provided Minutes Spent on Discharge: 45 Hospital Course: Patient is a 27-year-old with a past medical history of IV drug abuse including opioid abuse. She was admitted through the ED on 10/31/2022 with a complaint of anxiety, muscle aches and pain as well as alternating hot and cold sensations. She had not been admitted twice in the month prior to admission for similar complaints. She denied any fever, chills or any other complaints. Review of systems otherwise negative. She was admitted and managed for acute opioid and benzodiazepine withdrawal. She also had some redness on her lower extremities which she was treated. Localized cellulitis of the lower extremities and started on Bactrim and Keflex. Duplex of the right lower extremity done because it was swollen was negative for any evidence of DVT. Patient tolerated the detox process for 1 day but subsequently signed out AGAINST MEDICAL ADVICE on 02/01/2023. Patient was seen on 02/01/2023 and was agreeable to staying then but subsequently left AMA. Patient was seen and examined on the morning of 02/01/2023. At that time she felt well and had no complaints. Review of systems otherwise negative. As stated she signed out AMA on 02/01/2023. Physical Exam Const alert, oriented x3 and no apparent distress General Appearance: cooperative and comfortable HEENT normocephalic, head/scalp atraumatic, hearing grossly normal bilaterally, moist oral mucous membranes and oropharynx normal Eyes EOMs intact bilaterally Neck no lymphadenopathy and supple Lymph Lymphatic: no lymphadenopathy noted and no lymphedema noted Resp normal respiratory effort, normal air movement and clear to auscultation bilaterally Cardio regular rate, regular rhythm, S1 normal heart sound, S2 normal heart sound and no murmurs GI normal to inspection, nondistended, normoactive bowel sounds, soft to palpation, non-tender and non-distended Extremity normal capillary refill, no clubbing, cyanosis or edema and no calf tenderness General Extremity: no tenderness to palpation of joints or extremities Skin General Skin Exam: no breakdown Neuro CN's II-XII intact bilaterally, no focal motor deficits and no sensory deficits noted Motor Exam: strength 5/5 throughout and general weakness Psych thought process normal, cooperative and affect normal Appearance: appropriate Weight / BMI Weight Weight: 160 lb 0.889 oz Body Mass Index (BMI) 25.0 ABG / Lab / Microbiology Data 01/31/23 23:20 01/31/23 23:20 Microbiology: Microbiology 01/31/23 23:15 Urine, Clean Catch Urine Culture - Final Mixed Gram Positive Organisms D/C Instructions Discharge Diet: No restrictions Meaningful Use Info Meaningful Use Diagnoses (Choose all that apply): None applicable Discharge Plan Admission Admit Date/Time: 01/31/23 23:09 Primary Reason for Your Visit: acute opioid withdrawal Attending Provider: Susanna Gomez Primary Care Provider: Wang Spaulding Consulting Providers: Darien Jean Discharge Orders/Prescriptions Prescriptions: No Action NK Referrals / Follow Up: Wang Spaulding MD [Primary Care Provider] - Disposition Disposition (needs filled in before D/C Order can be placed): Against Medical Advice Charges/Coding Visit Charges Inpatient E&M: 16613 Disch Hosp >30min
[2023-02-01] MEDS: Thiamine Hydrochloride 100 MG Tablet PO (09:28)
[2023-02-01] MEDS: Folic Acid 1 MG Tablet PO (09:28)
[2023-02-01 09:43] VITALS: BP 94/58; PULSE 70; RESP 16; TEMP 36.6; O2SAT 98
[2023-02-01 09:47] VITALS: PULSE 70
--- NOTE | 2023-02-01 12:03 | ADDICTION ---
This expert medical writer met with PT to conduct ASAM, MSE, AUDIT, DUDIT assessments and to plan for d/c. PT A+Ox4 and participated actively. All assessments completed and placed in PT's chart. PT plans to f/u with [facility] for follow-up in patient treatment services on Monday. [facility] will transport to treatment.
[2023-02-01 13:05] VITALS: BP 102/54; PULSE 82; RESP 16; TEMP 36.7; O2SAT 98
--- NOTE | 2023-02-01 14:00 | PN_ITS ---
Subjective Subjective Patient seen and examined. She had no complaints. She had an uneventful night. Review of systems otherwise negative. Objective Data Objective Data Vital Signs: Vital Signs Temp Pulse Resp BP Pulse Ox O2 Del Method 98.0 F 82 16 102/54 L 98 Room Air 02/01/23 13:05 02/01/23 13:05 02/01/23 13:05 02/01/23 13:05 02/01/23 13:05 02/01/23 13:05 Oxygen Delivery Method Room Air Weight: 160 lb 0.889 oz Body Mass Index (BMI) 25.0 Intake & Output: Intake and Output for Last 24 Hours 01/30/23 01/31/23 02/01/23 23:59 23:59 23:59 Intake Total 320 / 320 Balance 320 / 320 Lab / Micro Data 01/31/23 23:20 01/31/23 23:20 Labs: Laboratory Results - last 24 hr 01/31/23 22:30: WBC Cancelled, Corrected WBC Cancelled, RBC Cancelled, Hgb Cancelled, Hct Cancelled, MCV Cancelled, MCH Cancelled, MCHC Cancelled, RDW Std Deviation Cancelled, RDW Coeff of [place] Cancelled, Plt Count Cancelled, MPV Cancelled, Immature Gran % (Auto) Cancelled, Neut % (Auto) Cancelled, Lymph % (Auto) Cancelled, [place] % (Auto) Cancelled, Eos % (Auto) Cancelled, Baso % (Auto) Cancelled, Absolute Neuts (auto) Cancelled, Absolute Lymphs (auto) Cancelled, Total Counted Cancelled, Neutrophils % (Manual) Cancelled, Band Neutrophils % Cancelled, Lymphocytes % (Manual) Cancelled, Monocytes % (Manual) Cancelled, Eosinophils % (Manual) Cancelled, Basophils % (Manual) Cancelled, Metamyelocytes % Cancelled, Myelocytes % Cancelled, Promyelocytes % Cancelled, Blast Cells % Cancelled, Plasma Cell % (Manual) Cancelled, Other Cells % Cancelled, Nucleated RBC % Cancelled, Nucleated RBCs/100 WBC Cancelled, Differential Comment Cancelled, Diff Path Review Cancelled, Hypersegmented Neuts Cancelled, Atypical Lymphocytes Cancelled, Reactive Lymphocytes Cancelled, Smudge Cells Cancelled, Toxic Granulation Cancelled, Toxic Vacuolation Cancelled, Dohle Bodies Cancelled, Elsie Rods Cancelled, Platelet Estimate Cancelled, Plt Morphology Comment Cancelled, RBC Morphology Cancelled 01/31/23 22:30: RBC Morphology Cancelled, Polychromasia Cancelled, Hypochromasia Cancelled, Poikilocytosis Cancelled, Basophilic Stippling Cancelled, Anisocytosis Cancelled, Microcytosis Cancelled, Macrocytosis Cancelled, Spherocytes Cancelled, Sickle Cells Cancelled, Target Cells Cancelled, Tear Drop Cells Cancelled, Ovalocytes Cancelled, Stomatocytes Cancelled, [place] Bodies Cancelled, Ronal Cells Cancelled, Bite Cells Cancelled, Crenated Cell Cancelled, Acanthocytes (Spur) Cancelled, Rouleaux Cancelled, Schistocytes Cancelled 01/31/23 23:15: Urine Color Yellow, Urine Clarity Clear, Urine pH 6.0, Ur Specific [place] 1.025, Urine Protein 30 H, Urine Glucose (UA) Normal, Urine Ketones 5 H, Urine Occult Blood Negative, Urine Nitrite Negative, Urine Bilirubin Negative, Urine Urobilinogen 1 H, Ur Leukocyte Esterase 25 H, Urine RBC 0 SEEN, Urine WBC 0-5 SEEN, Ur Squamous Epith Cells 0-5 SEEN, Urine Bacteria 2+, Urine Mucus 1+, Urine Test Negative, Urine Opiates Screen POSITIVE H, Urine Methadone Screen NEGATIVE, Ur Barbiturates Screen POSITIVE H, Ur Phencyclidine Scrn NEGATIVE, Ur Amphetamines Screen POSITIVE H, MDMA (Ecstasy) Screen POSITIVE H, U Benzodiazepines Scrn POSITIVE H, Urine Cocaine Screen NEGATIVE, U Cannabinoids Screen POSITIVE H, Ur Drug Screen Comment 01/31/23 23:20: WBC 8.2, RBC 4.25, Hgb 12.1, Hct 36.3 L, MCV 85.4, MCH 28.5, MCHC 33.3, RDW Std Deviation 43.7, RDW Coeff of [place] 14.0, Plt Count 202, MPV 9.5, Immature Gran % (Auto) 0.100, Neut % (Auto) 48.3, Lymph % (Auto) 42.5 H, [place] % (Auto) 7.3, Eos % (Auto) 1.3, Baso % (Auto) 0.5, Absolute Neuts (auto) 4.0, Absolute Lymphs (auto) 3.49, Nucleated RBC % 0, PT 13.7, INR 1.1, Sodium 141, Potassium 3.8, Chloride 110 H, Carbon Dioxide 25.0, Anion Gap 6, BUN 12, Creatinine 0.80, Estim Creat Clear Calc 104.54, Est GFR (MDRD) Af Amer 112, Est GFR (MDRD) Non-Af 92, BUN/Creatinine Ratio 15.0, Glucose 96, Calcium 8.7, Total Bilirubin 0.20, AST 57 H, ALT 112 H, Alkaline Phosphatase 95, Total Protein 7.4, Albumin 3.9, Globulin 3.5, Albumin/Globulin Ratio 1.1, Ethyl Alcohol < 3.0 Radiography Diagnostic Testing: Radiology Impression Venous Doppler Study 01/31/23 23:30 Interpretation Summary Deep veins of the bilateral lower extremities are patent and compressible segmentally. There is no evidence of bilateral lower extremity deep vein thrombosis. The bilateral great saphenous veins appear patent and compressible segmentally. Ordering Physician: Darien Jean Referring Physician: Wang Spaulding Performed By: Tash Mcclendon RVT Physical Exam Const alert, oriented x3 and no apparent distress General Appearance: cooperative HEENT normocephalic, head/scalp atraumatic, moist oral mucous membranes and oropharynx normal Eyes EOMs intact bilaterally Neck no lymphadenopathy and supple Lymph Lymphatic: no lymphadenopathy noted and no lymphedema noted Resp normal respiratory effort, normal air movement and clear to auscultation bilater ally Cardio regular rate, regular rhythm, S1 normal heart sound, S2 normal heart sound and no murmurs GI normal to inspection, nondistended, normoactive bowel sounds, soft to palpation, non-tender and non-distended Extremity normal capillary refill, no clubbing, cyanosis or edema and no calf tenderness General Extremity: no tenderness to palpation of joints or extremities Skin General Skin Exam: no breakdown Neuro CN's II-XII intact bilaterally, no focal motor deficits and no sensory deficits noted Motor Exam: strength 5/5 throughout and general weakness Psych thought process normal, cooperative and affect normal Appearance: appropriate Assessment & Plan Assessment/Plan (1) Acute hyperactive opioid withdrawal delirium: (2) Polysubstance abuse: PLAN: Plan #Acute opioid withdrawal * on opioid withdrawal protocol with buprenorphine * adjunctive meds for symptomatic relief * monitor CINA score. * #Acute benzodiazepine withdrawal * uses xanaz at least 3 x daily * on benzodiazepine withdrawal protocol with phenobarbital * adjunctive meds for symtomatic relief * Urine tox did show barbiturates, opioids and amphetamine as well as ecstasy, cannabinoids and benzodiazepines. * #Cellulitis of lower extremities. On Bactrim and Keflex. Duplex of the lower extremity showed no evidence of DVT. #Chronic hepatitis C: Treatment na?ve. Counseled that she would have to be off drugs for at least 6 months qualify for treatment with. Follow-up with gastroenterology at outpatient basis. DVT prophylaxis: DC Lovenox which was started on due to concerns about DVT. Low risk. Encouraged to ambulate. Charges/Coding Visit Charges Inpatient E&M: 65829 Subs Hosp L2
== END 2023-02-01 19:02 | disposition left against medical advice (07) | DRG 770 ==
LOC: ED 22:36 → MS3 23:41
PROVIDERS: Admitting Provider Internal Medicine; Emergency Provider Emergency Medicine; PCP Family Medicine; Visit Provider Student in an Organized Health Care Education/Training Program
DX: F11.23 Opioid dependence with withdrawal (principal); L03.115 Cellulitis of right lower limb; B18.2 Chronic viral hepatitis C; F13.239 Sedative, hypnotic or anxiolytic dependence with withdrawal, unspecified; F17.210 Nicotine dependence, cigarettes, uncomplicated; F12.90 Cannabis use, unspecified, uncomplicated; L03.116 Cellulitis of left lower limb; Z53.29 Procedure and treatment not carried out because of patient's decision for other reasons
CPT/HCPCS: 36415; 80053; 80307; 81001; 81025; 82077; 85025; 85610; 87086; 87088; 93970; 99283; 99406